=== PATIENT | female | born 1950 | race Hispanic/Latino ===

== ENCOUNTER 2019-09-03 10:04 | Observation (INO) | payer MEDICARE, OTHER ==
[2019-09-03] VITALS (10 sets, daily range): BP systolic 109–156; BP diastolic 47–69
[~2019-09-03] VITALS: Ht 160 cm; Wt 110.2 kg
[~2019-09-03 10:04] MED LIST: LISINOPRIL30 MG PO; METFORMIN HCL1000 MG PO
--- NOTE | 2019-09-03 10:32 | Emergency Department Note ---
History of Present Illnes History of Present Illness Chief Complaint: Chest Pain History of Present Illness This is a 69 year old female arrives to the ED with complaints of inter mittent chest pain today. Patient states she was seen in Dr. Hernandez's office just prior to arrival where she received a stress test. Spoke to Dr. Hernandez patient's stress test was markedly abnormal patient sent to the ER for cardiac catheterization in the setting of EKG changes and chest pain with exertion. . Chief Complaint Comment PATIENT IN FROM HOME WITH COMPLAINTS OF CHEST PAIN STARTING TODAY; PATIENT RATES PAIN 810. PATIENT WAS SEEN AT DR HERNANDEZ'S OFFICE AND HAD AN ABNORMAL STRESS TEST - SENT FOR TRANSCRIPT EVALUATOR Historian: Patient Arrival Mode: Car Business Sales Consultant Required: No Onset (how long ago): day(s) Duration (how long): hour(s) Timing of current episode: constant Progression: worsening Chronicity: new Relieving factors: none Exacerbating factors: movement Past Medical/Family History Physician Review I have reviewed the patient's past medical and family history. Any updates have been documented here. Past Medical History Recent Fever: No Clinical Suspicion of Infectio: No New/Unexplained Change in Ment: No Past Medical History: Hypertension, Diabetes Other Surgery: L knee scope 02/2015 Family History Family history of heart diseas: No Other Last Tetanus: unk Review of Systems Review of Systems Constitutional: Reports no symptoms EENTM: Reports no symptoms Cardiovascular: Reports as per HPI, Reports chest pain Respiratory: Reports no symptoms Gastrointestinal: Reports no symptoms Genitourinary: Reports no symptoms Musculoskeletal: Reports no symptoms Integumentary: Reports no symptoms Neurological: Reports no symptoms Psychological: Reports no symptoms Endocrine: Reports no symptoms Hematological/Lymphatic: Reports no symptoms Review of other systems: All other systems negative Physical Exam Related Data Allergies: Coded Allergies: No Known Allergies (Unverified , 02/21/15) Triage Vital Signs Vital Signs Date Time Temp Pulse Resp B/P (MAP) Pulse Ox O2 Delivery O2 Flow Rate FiO2 09/03/19 10:15 96.4 75 16 126/67 95 Vital signs reviewed: Yes Physical Exam CONSTITUTIONAL Constitutional: Present well-developed, Present well-nourished HENT HENT: Present normocephalic, Present atraumatic, Present oropharynx clear/moist, Present nose normal HENT L/R: Present left ext ear normal, Present right ext ear normal EYES Eyes: Reports PERRL, Reports conjunctivae normal NECK Neck: Present ROM normal PULMONARY Pulmonary: Present effort normal, Present breath sounds normal CARDIOVASCULAR Cardiovascular: Present regular rhythm, Present heart sounds normal, Present capillary refill normal, Present normal rate GASTROINTESTINAL Abdominal: Present soft, Present nontender, Present bowel sounds normal GENITOURINARY Genitourinary: Present exam deferred SKIN Skin: Present warm, Present dry MUSCULOSKELETAL Musculoskeletal: Present ROM normal NEUROLOGICAL Neurological: Present alert, Present oriented x 3, Present no gross motor or sensory deficits PSYCHOLOGICAL Psychological: Present mood/affect normal, Present judgement normal Results Laboratory Lab results reviewed: Yes Imaging Imaging results reviewed: Yes Procedures 12 Lead ECG Interpretation ECG Interpretation : ECG: ECG 1 Business Sales Consultant: Interpreted by ED physician Rhythm: sinus rhythm Rate: normal QRS axis: normal ST segments normal: Yes T waves normal: Yes Clinical Impression: normal ECG Clinical Decision Tools HEART Score HEART Score: HEART Score Response (Comments) Value History Moderately suspicious 1 EKG Normal 0 Age > or equal to 65 2 Risk factors 1 or 2 risk factors 1 Troponin 1-3x normal limit Total 4 Assessment & Plan Medical Decision Making MDM Chest pain, patient was significantly cardiac risk factors also age is over 65. Patient admitted for cardiac monitoring. Patient's EKG and cardiac enzymes reviewed, no concerns of acute NC and STEMI at time of admission Assessment & Plan Final Impression: (1) Stable angina (2) Chest pain Depart Disposition: ADMITTED Last Vital Signs Date Time Temp Pulse Resp B/P (MAP) Pulse Ox O2 Delivery O2 Flow Rate FiO2 09/03/19 10:15 96.4 75 16 126/67 95 Home Meds Active Scripts Pravastatin Sodium (PRAVACHOL) 20 Mg Tablet, 20 MG PO HS for 30 Days, TAB Prov:ALICE REED MD 09/04/19 Famotidine (FAMOTIDINE) 20 Mg Tab, 20 MG PO Q12H, #30 TAB Prov:ALICE REED MD 09/04/19 Aspirin (ASPIRIN EC) 81 Mg Tablet.dr, 81 MG PO DAILY for 30 Days Prov:ALICE REED MD 09/04/19 Reported Medications Metformin Hcl (METFORMIN HCL) 1,000 Mg Tablet, 1 EACH PO BID 02/22/15 Lisinopril (LISINOPRIL) 30 Mg Tablet, 1 EACH PO DAILY 02/22/15 ALEN CARRILLO DO Sep 03, 2019 10:15
[2019-09-03 10:52] LABS: BASOPHILS % 0.4 % (0.0-1.0); EOSINOPHILS # (AUTO) 0.1 (0.0-0.4); EOSINOPHILS % 3.2 % (0.0-6.0); HEMATOCRIT 41.6 % (34.2-44.1); LYMPHOCYTES # (AUTO) 0.6 (1.0-3.2); MEAN CORPUSCULAR HEMOGLOBIN 27.1 pg (28-32); MEAN CORPUSCULAR HGB CONC 31.3 g/dL (31-35); MEAN CORPUSCULAR VOLUME 86.8 fL (81-99); MONOCYTES # (AUTO) 0.3 (0.2-0.8); NEUTROPHILS # (AUTO) 1.8 (2.1-6.9); PLATELET COUNT 51 x10e3/uL (140-360); RED BLOOD COUNT 4.79 x10e6/uL (3.6-5.1); RED CELL DISTRIBUTION WIDTH 14.8 % (11.7-14.4)
[2019-09-03 11:05] LABS: ALANINE AMINOTRANSFERASE 27 IU/L (0-55); ALBUMIN 3.3 g/dL (3.5-5.0); ALKALINE PHOSPHATASE 149 IU/L (40-150); BLOOD UREA NITROGEN 8 mg/dL (7-26); BUN/CREATININE RATIO 12 (6-25); CALCIUM 8.8 mg/dL (8.4-10.2); CARBON DIOXIDE 27 mmol/L (22-29); CHLORIDE 106 mmol/L (98-107); CREATINE KINASE 62 IU/L (29-168); CREATININE, SERUM 0.69 mg/dL (0.57-1.11); EST GLOMERULAR FILTRATION RATE > 60 ML/MIN (60-); GLUCOSE 116 mg/dL (74-118); SODIUM 140 mmol/L (136-145)
--- NOTE | 2019-09-03 11:32 | Diagnostic Imaging Report ---
EXAMINATION: CHEST SINGLE (PORTABLE) INDICATION: Chest pain COMPARISON: None FINDINGS: LINES/TUBES:None LUNGS:The lungs are well-inflated. No focal consolidation or pulmonary edema. PLEURA:No pleural effusion or pneumothorax. MEDIASTINUM:The cardiomediastinal silhouette appears normal in size and shape. BONES/SOFT TISSUES:No acute osseous injury. ABDOMEN:No free air under the diaphragm. IMPRESSION: No focal pneumonia or pulmonary edema. Signed by: Brad Trinh MD on 09/03/2019 11:29 AM
--- NOTE | 2019-09-03 12:14 | NUR ---
Recvd patient from ER, AAOx3, c/o chest pain 06/24, not in any distress or SOB, keep monitoring
[2019-09-03] MEDS ORDERED: DOCUSATE SODIUM 100 MG CAP PO PRN (13:15)
[2019-09-03] MEDS ORDERED: ONDANSETRON HCL INJ 2MG/ML 2ML 2 MG/ML VIAL IV PRN (13:15)
--- NOTE | 2019-09-03 13:16 | NUR ---
H&P cc: chest pain HPI: 69yoF, developed cp. Minimal SOB. no dizziness. PMH: HTN, DM2 PShx: unknown Allergies; see emr Fh/SH; no illicits meds; see MAR ROS; no f/c/s/N/V/D/skin rash/confusion/focal limb weakness v/s; revd PE tired appearing anicteric ns1s2 mod bs soft nt nd no e/t skin dry n. affect labs/meds revd A/P: 69yoF Atypical CP- cardio w-up Severe obesity- hab1c/lipids; caloric restriction needed BMI 43- as above DM2- hab1c/lipids Thrombocytopenia- avoid heparin Prop: scd; pepcid dispo; f/u labs; Amanda Woo MD, PhD.
[2019-09-03] MEDS ORDERED: HEPARIN SOD (PORCINE) 1000 UNIT/ML 30ML ONE (13:29)
[2019-09-03] MEDS ORDERED: MIDAZOLAM HCL 2 MG/2 ML VIAL ONE ×2 (13:30→14:19)
[2019-09-03] MEDS ORDERED: FENTANYL CITRATE/PF 100MCG/2 ML INJ ONE (13:30)
[2019-09-03] MEDS ORDERED: VERAPAMIL HCL 2.5 MG/ML 2 ML VIAL ONE (13:30)
[2019-09-03] MEDS ORDERED: IOPAMIDOL 370 MG/ML 200 ML INFUS..BTL INJ ONE (13:30)
[2019-09-03] MEDS ORDERED: SODIUM CHLORIDE 0.9% 1000ML 1,000 ML ONE (13:30)
[2019-09-03] MEDS ORDERED: HEPARIN SOD/SOD CHLORIDE 2,000 ML ONE (13:30)
[2019-09-03] MEDS ORDERED: NITROGLYCERIN/D5W 200 MCG/ML 250 ML ONE (13:31)
[2019-09-03] MEDS ORDERED: LIDOCAINE HCL 2% LOCAL 20 ML VIAL ONE (13:33)
--- NOTE | 2019-09-03 14:01 | NUR ---
patient off the unit to Electric Motor Tester Assembler, stable
--- NOTE | 2019-09-03 14:30 | NUR ---
1430pm RECEIVING NOTE [employer]............................................................... Bedside report received from COLTON Pena. Identifierx2. Alert oriented and appropriate, PERRLA, respirations even and unlabored to room air. Pulses x4 extremities equal and strong. Pedal pulses PT/DP X4 and marked. Cap fill brisk < 3 sec. LHC no fix No significant findings. Rt radial approach. No gross issues pain pallor,pressure or dysrhythmia. Skin warm and dry integrity appears D/I. IV 20g to left ac presents healthy w/o s/s of infiltration or complaint. Abdomen soft and supple. pt offered toileting, denies need to urinate or defecate. No personal affects with patient. No Family at bedside. Pt verbalizes understanding of POC. Tolerating apple juice back to baseline orientation. Currently w/o complaint of pain or need. ds/rn
--- NOTE | 2019-09-03 15:30 | NUR ---
1530pm RADIAL COMPRESSION REMOVAL NOTE: Initial Cuff volume 12 cc 1530pm -2cc Removed No hematoma/bleeding noted with normal neurovascular function. 1545pm -5cc Removed No hematoma/ bleeding noted with normal neurovascular function. 1600pm -5cc Removed No hematoma/bleeding noted with normal neurovascular function. Air removal completed. Stasis achieved sterile 2x2,Tegaderm, Coban dressing No hematoma, bleeding noted with normal neurovascular function. Wrist splint in place. Pt instructed on POC. Ds/RN
--- NOTE | 2019-09-03 16:00 | NUR ---
1600p Handoff completed with fce to face report to Lazara Enriquez at bedside No gross issues NSR cp intermittent 06/24 reported to staff. No fix LHC per David Parikh dc from cardiology. Needs to remove arm reminder with am shower.Transported to floor care per bed and tele. Report to tele staff. jackie/lazara
[2019-09-03] MEDS: FAMOTIDINE 20 MG/2 ML VIAL IV SCH (17:54)
--- NOTE | 2019-09-03 18:35 | Consultation ---
DATE OF CONSULTATION: 09/03/2019 Cardiology Consultation REASON FOR CONSULTATION: Chest pain. HISTORY OF PRESENT ILLNESS: This is a 69-year-old woman with a history of hypertension and diabetes mellitus, who presented from our Cardiology clinic with abnormal treadmill stress test. She underwent cardiac catheterization, which revealed no significant coronary artery disease. She is feeling well. Denies any typical angina, shortness of breath, or palpitations. PAST MEDICAL HISTORY: As stated above. PAST SURGICAL HISTORY: Cardiac catheterization. PAST FAMILY HISTORY: Noncontributory to current illness. SOCIAL HISTORY: No illicit drug, alcohol, or tobacco use. ALLERGIES: NO KNOWN DRUG ALLERGIES. MEDICATIONS: See medication reconciliation form. PHYSICAL EXAMINATION: VITAL SIGNS: Temperature 97.8, heart rate is 66, respirations are 18, blood pressure is 109/47, oxygen saturation 99% on room air. GENERAL: A well appearing, well built, in no apparent distress. Alert and oriented x3. HEAD: Normocephalic and atraumatic. Eyes, the extraocular muscles are intact. Conjunctivae are clear. NECK: No JVD. No bruits. CARDIOVASCULAR: Regular rate and rhythm. LUNGS: Clear to auscultation. ABDOMEN: Soft, nontender, nondistended. EXTREMITIES: No clubbing, cyanosis, or edema. VASCULAR: 2+ pulses. SKIN: Warm, dry, intact. NEUROLOGIC: No focal deficits noted. Cranial nerves grossly intact. PSYCHIATRIC: Normal mood and affect. LABORATORY DATA: Reviewed, which showed normal troponins. A 12-lead electrocardiogram showed normal sinus rhythm. IMPRESSION: 1. Precordial pain. 2. Abnormal stress test. 3. Hypertension. 4. Hyperlipidemia. 5. Diabetes mellitus. RECOMMENDATIONS: Cardiac catheterization revealed no significant coronary artery disease. We will check a 2D echocardiogram. Resume cardiovascular medications. Monitor on telemetry overnight. DO ISELA Oden/VIJAYL /[id number]
--- NOTE | 2019-09-03 19:00 | NUR ---
Visited pt during nursing rounds. Patient alert and oriented x3. Ambulatory in room prn. S/P heart catheterization today (09/03/19) with right wrist access. TR band present on right wrist and per report will be removed tomorrow by Real Estate Closer. No c/o pain at this time. Call carrillo within reach.
[2019-09-03 19:12] LABS: CREATINE KINASE MB 0.9 ng/mL (0-5.0)
[2019-09-03] MEDS ORDERED: ZOLPIDEM TARTRATE 5 MG TAB PO PRN (21:00)
[2019-09-03] MEDS ORDERED: DEXTROSE 50% SYRINGE 50 ML IV PRN (21:45)
[2019-09-03] MEDS: INSULIN REGULAR, HUMAN 100 UNIT/1 ML 3ML VIAL SQ SCH (21:49)
[2019-09-03 21:56] LABS: CHOL/HDL RATIO 2.9 (3.0-3.6)
[2019-09-04] VITALS (8 sets, daily range): BP systolic 111–121; BP diastolic 49–68
[2019-09-04] MEDS: MORPHINE SULFATE INJ 4 MG/ML INJ 1ML IV PRN ×2 (00:35→11:02)
[2019-09-04 06:45] LABS: CREATINE KINASE MB 0.4 ng/mL (0-5.0)
--- NOTE | 2019-09-04 07:00 | NUR ---
received bedside report. pt is alert resting in bed, no s/s of distress. call light within reach and instructed pt to call RN for help
[2019-09-04] MEDS: INSULIN REGULAR, HUMAN 100 UNIT/1 ML 3ML VIAL SQ SCH ×4 (07:30→15:55)
[2019-09-04] MEDS ORDERED: INSULIN REGULAR, HUMAN 100 UNIT/1 ML 3ML VIAL SQ SCH (07:30)
[2019-09-04] MEDS: FAMOTIDINE 20 MG/2 ML VIAL IV SCH ×2 (08:56→17:47)
[2019-09-04] MEDS: ASPIRIN 81 MG ENTERIC COATED PO SCH (08:57)
[2019-09-04] MEDS: LISINOPRIL 20 MG TAB PO SCH (08:57)
[2019-09-04] MEDS ORDERED: LISINOPRIL PO SCH (09:00)
[2019-09-04] MEDS ORDERED: PRAVACHOL20 MG PO (12:15)
[2019-09-04] MEDS ORDERED: ASPIRIN EC81 MG PO (12:15)
[2019-09-04] MEDS ORDERED: FAMOTIDINE20 MG PO (12:15)
[2019-09-04 15:00] LABS: CHOL/HDL RATIO 3.3 (3.0-3.6)
--- NOTE | 2019-09-04 20:10 | NUR ---
Patient c/o right abd.pain.notified to .ordered for KUB.
--- NOTE | 2019-09-04 20:55 | NUR ---
PT IS OFF THE UNIT FOR KUB VIA WHEEL CHAIR.
--- NOTE | 2019-09-04 21:07 | NUR ---
PT IS BACK TO UNIT SAFELY.
--- NOTE | 2019-09-04 22:11 | Diagnostic Imaging Report ---
EXAM: Abdomen Radiograph 1 View INDICATION: Right abdominal pain COMPARISON: None FINDINGS: No abnormalities in the lower chest. No lines or tubes. Normal volume of stool in the colon. No dilated loops of small bowel. No abnormal abdominal calcifications.. No abnormal soft tissue masses. No pneumoperitoneum. No acute osseous abnormality. Degenerative changes in in the lumbar spine and pelvis. Post surgical changes in the lower central pelvis. Cholecystectomy clips. IMPRESSION: No acute abdominal radiographic abnormality. Signed by: Thompson Flynn DO on 09/04/2019 10:07 PM
[2019-09-04] MEDS: ACETAMINOPHEN 325 MG TAB PO PRN (22:30)
[2019-09-05] VITALS: BP 123/54
--- NOTE | 2019-09-05 00:26 | NUR ---
RESTING IN THE BED.NO PAIN VOICED.
[2019-09-05 04:00] VITALS: BP 130/60
--- NOTE | 2019-09-05 07:00 | NUR ---
Bed side shift report given to oncoming Rn.stable condition.
[2019-09-05 07:19] VITALS: BP 110/47
[2019-09-05] MEDS: INSULIN REGULAR, HUMAN 100 UNIT/1 ML 3ML VIAL SQ SCH ×2 (07:30→11:50)
[2019-09-05 07:37] VITALS: BP 110/47
[2019-09-05] MEDS: ASPIRIN 81 MG ENTERIC COATED PO SCH (08:24)
[2019-09-05] MEDS: FAMOTIDINE 20 MG/2 ML VIAL IV SCH (08:24)
[2019-09-05] MEDS: LISINOPRIL 20 MG TAB PO SCH (08:24)
[2019-09-05] MEDS: ACETAMINOPHEN 325 MG TAB PO PRN (08:31)
[2019-09-05 11:13] VITALS: BP 109/49
--- NOTE | 2019-09-05 11:58 | Diagnostic Imaging Report ---
HISTORY: ^abdominal pain ^[id number] ^[id number] TECHNIQUE: Selected static images from complete abdominal ultrasound provided for INTERPRETATION: COMPARISON: None. FINDINGS: Pancreas: Visualized portions are increased in echotexture suggestive of lipomatosis without mass or ductal dilatation. Liver: Measures 13.4 cm in sagittal plane. The echotexture is heterogeneous with lobulated contours. No mass in the visualized portions. Portal Vein: Measures 1.1 cm. Hepatopetal flow on spectral Doppler interrogation. Biliary Tree: Normal Gallbladder: Present and contracted. Gallbladder valencia measure up to 5 mm. No evidence of gallstone or sludge. No pericholecystic fluid. Sonographic Lord sign is negative. CBD: 0.4 cm. Right Kidney: Length is 8.1 cm. Echotexture is normal. No mass or hydronephrosis. Left Kidney: Length is 9.0 cm. Echotexture is normal. No mass or hydronephrosis. Spleen: 13.8 cm in length. No evidence for mass. Proximal Aorta: 1.7 cm. Mid Aorta: 1.8 cm. Distal Aorta: Poorly visualized due to bowel gas IVC: Patent No free fluid IMPRESSION: 1. Cirrhosis and mild splenomegaly. No hepatic mass. Normal portal vein diameter. No ascites. 2. Mildly contracted gallbladder. No evidence of gallstones. No bile duct dilatation. Signed by: Dr. Natalie Cardona MD on 09/05/2019 11:55 AM
--- NOTE | 2019-09-05 12:06 | NUR ---
Notified of ultrasound
--- NOTE | 2019-09-05 13:00 | NUR ---
Per , "patient cleared to discharge and to follow up with Dr.Ali Wilfrid ENG in 3 days. RX will be faxed to [facility] on [address]." Patient aware of doctor's message.
--- NOTE | 2019-09-05 14:27 | NUR ---
Left FA IV discontinued. No signs of infiltration noted. 2x2 gauze and coban placed. Taken via wheelchair to personal car by PCT. AAOX4 to time,person, place, situation. Respirations even and unlabored. Dressing to right wrist with coban clean, dry, and intact. Discharge instructions and all personal belongings taken with patient.
--- NOTE | 2019-10-03 06:42 | NUR ---
D/C summary Principal dx: Atypical CP- cardio w-up= Negative; Severe obesity- hab1c/lipids; caloric restriction needed BMI 43- as above Secondary Dx: DM2- hab1c/LDL . Thrombocytopenia- avoid heparin Prop: scd; pepcid dispo; f/u labs; d/c home f/u pcp 2 days stable d/c>35mins Amanda Woo MD, PhD.
--- NOTE | 2019-10-13 22:05 | Operative Report ---
DATE OF PROCEDURE: 09/03/2019 SURGEON: Hector Tse MD CARDIAC CATHETERIZATION REPORT PROCEDURES PERFORMED: 1. Coronary angiography, right radial approach. 2. Moderate sedation, 30 minutes. PROCEDURE DETAILS: The patient was brought to the cardiac catheterization laboratory in a fasting state. Right wrist was prepped and draped in a sterile fashion. A 6-Spanish Slender sheath was inserted in the right radial artery using modified Seldinger technique. Coronary angiography was performed using a 5-Spanish Cristy radial catheter. All catheters were removed over wire. There were no immediate complications. SIGNIFICANT FINDINGS: Left main; large caliber and no significant CAD. LAD; large vessel goes to the apex, one significant diagonal branch. Mild plaquing in the proximal LAD and ostial diagonal 1 about 10% to 20%. Left circumflex, nondominant vessel. One significant OM branch. No significant CAD. RCA; large dominant vessel, luminal irregularities only. GRAFTS AND IMPLANTS: None. SPECIMEN REMOVED: None. ESTIMATED BLOOD LOSS: 5 mL. FINAL RECOMMENDATIONS: 1. Continue optimal medical therapy and risk factor control. 2. Follow up in the office as needed. Hector Tse MD KVP/MODL /[id number]
--- OUTSIDE RECORDS SUMMARY | 2019-10-14 21:22 | XMS REPORT | Continuity of Care Document ---
Author Author [facility] t Organization [facility] Address [address] [place] [address] Phone Unavailable Care Team Providers Care Emergency Room Nurse Name Role Phone BIN STOVALL PCP ALICE REED Attphys Unavailable ALICE REED Admphys Unavailable Payers Payer Name Policy Type Policy Number Effective Date Expiration Date S ource Problems Condition Name Condition Details Condition Category Status Onset Date Resolution Date Last Treatment Date Treating Clinician Comments Source Chest pain Problem Active [facility] Allergies, Adverse Reactions, Alerts Allergy Name Allergy Type Status Severity Reaction(s) Onset Date Inacti ve Date Treating Clinician Comments Source No Known Allergies DA Active U 2018-10-13 00:00:00 [facility] No Known Allergies DA Active U 2017-03-20 00:00:00 [facility] Social History Social Habit Start Date Stop Date Quantity Comments Source Sex Assigned At 1950 00:00:00 1950 00:00:00 Female [facility] Medications Ordered Medication Name Filled Medication Name Start Date Stop Da te Current Medication? Ordering Clinician Indication Dosage Frequency Signature (SIG) Comments Components Source Aspirin (Aspirin Ec) 81 Mg TABLET. Aspirin (Aspirin Ec) 81 Mg TABLET. 2019-09-04 12:15:00 Yes 81 Daily [facility] Famotidine Famotidine 2019-09-04 12:15:00 Yes 20 Enedina ry 12 Hours [facility] Pravastatin Sodium (Pravachol) 20 Mg TABLET Pravastati n Sodium (Pravachol) 20 Mg TABLET 2019-09-04 12:15:00 Yes 20 Bedtime [facility] Lisinopril Lisinopril Yes 1 Daily [facility] Metformin Hcl Metformin Hcl Yes 1 Twice A Day [facility] Vital Signs Vital Name Observation Time Observation Value Comments Source Body Temperature 2019-09-05 11:13:00 98.8 [degF] [facility] BMI (Body Mass Index) 2019-09-04 00:41:00 43.0 kg/m2 [facility] Weight 2019-09-03 10:15:00 243 [lb_av] [facility] Procedures Procedure Date / Time Performed Performing Clinician Sourc e US abdomen complete 2019-09-05 00:00:00 [facility] Plan of Care Planned Activity Planned Date Details Comments Source Instructions Chest Pain - Chest Wall [facility] Instructions Heart Healthy Diet [facility] Instructions Infection Control [facility] Results Test Description Test Time Test Comments Results Result Comments Source US ABDOMEN COMPLETE 2019-09-05 11:51:00 [facility] [address] [address] Patient Name: WANDA VILLASENOR MR #: [id number] : 1950 Age/Sex: 69/F Req #: [id number] Adm Physician: ALICE REED MD Ordered by: ALICE REED MD Report #: [id number] Location: MED/SURG3 Room/Bed: [facility] Procedure: [id number] US/US ABDOMEN COMPLETE Exam Date: 09/05/19 Exam Time: 1107 REPORT STATUS: Signed HISTORY: abdominal pain [id number] TECHNIQUE: Selected static images from complete abdominal ultrasound provided for INTERPRETATION: COMPARISON: None. FINDINGS: Pancreas: Visualized portions are increased in echotexture suggestive of lipomatosis without mass or ductal dilatation. Liver: Measures 13.4 cm in sagittal plane. The echotexture is heterogeneous with lobulated contours. No mass in the visualized portions. Portal Vein: Measures 1.1 cm. Hepatopetal flow on spectral Doppler interrogation. Biliary Tree: Normal Gallbladder: Present and contracted. Gallbladder valencia measure up to 5 mm. No evidence of gallstone or sludge. No pericholecystic fluid. Sonographic Lord sign is negative. CBD: 0.4 cm. Right Kidney: Length is 8.1 cm. Echotexture is normal. No mass or hydronephrosis. Left Kidney: Length is 9.0 cm. Echotexture is normal. No mass or hydronephrosis. Spleen: 13.8 cm in length. No evidence for mass. Proximal Aorta: 1.7 cm. Mid Aorta: 1.8 cm. Distal Aorta: Poorly visualized due to bowel gas IVC: Patent No free fluid IMPRESSION: 1. Cirrhosis and mild splenomegaly. No hepatic mass. Normal portal vein diameter. No ascites. 2. Mildly contracted gallbladder. No evidence of gallstones. No bile duct dilatation. Signed by: Dr. Natalie Johnston MD on 09/05/2019 11:55 AM Dictated By: NATALIE JOHNSTON MD 1155 Transcribed By: NATHAN on 09/05/19 1155 COPY TO: ALICE REED MD Capillary blood glucose measurement by glucometer (mas s/volume) 2019-09-05 06:53:00 Test Item Bedside Glucose (test code = 23862-1) 126 70-120 Meter ID: [id number] [facility] 2019-09-04 22:05:[address] [address] Patient Name: WANDA VILLASENOR MR #: [id number] : 1950 Age/Sex: 69/F Req #: [id number] Adm Physician: ALICE REED MD Ordered by: ALICE REED MD Report #: [id number] Location: MED/SURG3 Room/Bed: [facility] Procedure: [id number] DX/ABDOMEN-1V IEW (KUB) Exam Date: 09/04/19 Exam Time: 2100 REPORT STATUS: Signed EXAM: Abdomen Ra diograph 1 View INDICATION: Right abdominal pain COMPARISON: None FINDINGS: No abnormalities in the lower chest. No lines or tubes. Normal volume of stool in the colon. No dilated loops of small bowel. No abnormal abdominal calcifications.. No abnormal soft tissue masses. No pneumoperitoneum. No acute osseous abnormality. Degenerative marcio nges in in the lumbar spine and pelvis. Post surgical changes in the lower central pelvis. Cholecystectomy clips. IMPRESSION: No acute abdom inal radiographic abnormality. Signed by: Thompson Gibbs DO on 09/04/2019 1 0:07 PM Dictated By: THOMPSON GIBBS DO 06 Transcribed By: NATHAN on 09/04/192206 COPY TO: ALICE REED MD Serum or plasma triglyceride measurement (mass/volume)2019-09-04 05:40:00* Test Item Value Reference Range Interpretation Comments Triglycerides Level (test code = 2571-8) 81 0-149 [facility] cholesterol measurement (mass/volume)2019-09-04 05:40:00* Test Item Value Reference Range Interpretation Comments Cholesterol Level (test code = 2093-3) 140 0-199 Less than 200 mg/dL Low Ahot210 - 239 mg/dL Borderline Atbi024 m g/dl and greater High Risk [facility] cholesterol in LDL measurement (mass/volume) 2019-09-04 05:40:00* Test Item Value Reference Range Interpretation Comments LDL Cholesterol (test code = 2089-1) 81 60-130 [facility] cholesterol in HDL measurement (mass/volume)2019-09-04 05:40:00* Test Item Value Reference Range Interpretation Comments HDL Cholesterol (test code = 2085-9) 43 40-60 [facility] total cholesterol/cholesterol in HDL mass einmj8318-99-06 05:40:00* Test Item Value Reference Range Interpretation Comments Cholesterol/HDL Ratio (test code = 9830-1) 3.3 3.0-3.6 [facility] plasma creatine kinase measurement (enzymatic activity/volume)2019-09-04 05:40:00* Test Item Value Reference Range Interpretation Comments Creatine Kinase (test code = 2157-6) 45 29-168 [facility] creatine kinase MB measurement (mass/volume)2019-09-04 05:40:00* Test Item Value Reference Range Interpretation Comments Creatine Kinase MB (test code = 95318-3) 0.40 0-5.0 [facility] measurement by highly sensitive enzyme bejnabftfmq2877-14-47 05:40:00* Test Item Value Reference Range Interpretation Comments Troponin I (test code = 85037-0) 0.066 0-0.300 [facility] ([facility])2019-09-03 11:28:00 [facility] [address] [place] [address] Patient Name: WANDA VILLASENOR MR #: [id number] : 1950 Age/Sex: 69/F Req #: [id number] Adm Physician: ALICE REED MD Ordered by: ALEN CARRILLO DO Report #: [id number] Location: MED/SURG3 Room/Bed: [facility] Procedure: [id number] DX/CHEST SINGLE (PORTABLE) Exam Date: 09/03/19 Exam Time: 11 13 REPORT STATUS: Signed EXAMINA TION: CHEST SINGLE (PORTABLE) INDICATION: Chest pain COMPARISON: None FINDINGS: LINES/TUBES:None LUNGS:The lungs are well-inf lated. No focal consolidation or pulmonary edema. PLEURA:No pleural effusio n or pneumothorax. MEDIASTINUM:The cardiomediastinal silhouette appears nor mal in size and shape. BONES/SOFT TISSUES:No acute osseous injury. ABD OMEN:No free air under the diaphragm. IMPRESSION: No focal pneumonia or pulmonary edema. Signed by: Luis Daniel Cordoba MD on 09/03/2019 11:29 AM Dic tated By: LUSI DANIEL CORDOBA MD 112 9 Transcribed By: NATHAN on 09/03/19 1129 COPY TO: ALEN CARRILLO, Blood leukocytes automated count (number/volume)2019-09-03 10:22:00* Test Item Value Reference Range Interpretation Comments White Blood Count (test code = 6690-2) 2.78 4.8-10.8 [facility] erythrocytes automated count (number/volume)2019-09-03 10:22:00* Test Item Value Reference Range Interpretation Comments Red Blood Count (test code = 789-8) 4.79 3.6-5.1 [facility]Blood hemoglobin measurement (moles/volume)2019-09-03 10:22:00* Test Item Value Reference Range Interpretation Comments Hemoglobin (test code = 05614-6) 13.0 12.0-16.0 [facility] HospitalAutomated blood hematocrit (volume fraction)2019-09-03 10:22:00* Test Item Value Reference Range Interpretation Comments Hematocrit (test code = 4544-3) 41.6 34.2-44.1 [facility] HospitalAutomated erythrocyte mean corpuscular lkbets1542-98-50 10:22:00* Test Item Value Reference Range Interpretation Comments Mean Corpuscular Volume (test code = 787-2) 86.8 81-99 [facility] HospitalAutomated erythrocyte mean corpuscular hemoglobin (mass per erythrocyte)2019-09-03 10:22:00* Test Item Value Reference Range Interpretation Comments Mean Corpuscular Hemoglobin (test code = 785-6) 27.1 28-32 [facility] HospitalAutomated erythrocyte mean corpuscular hemoglobin concentration measurement (mass/volume)2019-09-03 10:22:00* Test Item Value Reference Range Interpretation Comments Mean Corpuscular Hemoglobin Concent (test code = 786-4) 31.3 31-35 [facility] HospitalRDW ZgnTn-Tsr4622-19-19 10:22:00* Test Item Value Reference Range Interpretation Comments Red Cell Distribution Width (test code = 88764-0) 14.8 11.7 -14.4 [facility] HospitalAutomated blood platelet count (count/volume)2019-09-03 10:22:00* Test Item Value Reference Range Interpretation Comments Platelet Count (test code = 777-3) 51 140-360 [facility] HospitalAutecu health beau[facility] hospitaled blood segmented neutrophil count as percentage of total ecetiatcxl6186-81-86 10:22:00* Test Item Value Reference Range Interpretation Comments Neutrophils (%) (Auto) (test code = 45044-0) 64.0 38.7-80.0 [facility] HospitalAutomated blood lymphocyte count as percentage ot total gmuztesshm3523-32-31 10:22:00* Test Item Value Reference Range Interpretation Comments Lymphocytes (%) (Auto) (test code = 736-9) 23.0 18.0-39.1 [facility] HospitalAutomated blood monocyte count as percentage of total umpkwdnocu3476-19-45 10:22:00* Test Item Value Reference Range Interpretation Comments Monocytes (%) (Auto) (test code = 5905-5) 9.0 4.4-11.3 [facility] HospitalAutomated blood eosinophil count as percentage of total lxfqxfidma0041-31-04 10:22:00* Test Item Value Reference Range Interpretation Comments Eosinophils (%) (Auto) (test code = 713-8) 3.2 0.0-6.0 [facility] HospitalAutomated blood basophil count as percentage of total yacltxywrx4813-08-01 10:22:00* Test Item Value Reference Range Interpretation Comments Basophils (%) (Auto) (test code = 706-2) 0.4 0.0-1.0 [facility] HospitalFluoroscopic procedure less than one hour dtxftsds5989-77-20 10:22:00* Test Item Value Reference Range Interpretation Comments IM GRANULOCYTES % (test code = IM GRANULOCYTES %) 0.4 0.0- 1.0 [facility] HospitalAutomated blood neutrophil count 2019-09-03 10:22:00* Test Item Value Reference Range Interpretation Comments Neutrophils # (Auto) (test code = 751-8) 1.8 2.1-6.9 [facility] HospitalBlood lymphocytes count (number/volume) 2019-09-03 10:22:00* Test Item Value Reference Range Interpretation Comments Lymphocytes # (Auto) (test code = 50252-3) 0.6 1.0-3.2 [facility] HospitalBlood monocytes automated count (number/volume)2019-09-03 10:22:00* Test Item Value Reference Range Interpretation Comments Monocytes # (Auto) (test code = 742-7) 0.3 0.2-0.8 [facility] HospitalAutomated blood eosinophil count 2019-09-03 10:22:00* Test Item Value Reference Range Interpretation Comments Eosinophils # (Auto) (test code = 711-2) 0.1 0.0-0.4 [facility] HospitalAutomated blood basophil count (count/volume)2019-09-03 10:22:00* Test Item Value Reference Range Interpretation Comments Basophils # (Auto) (test code = 704-7) 0.0 0.0-0.1 [facility] HospitalFluoroscopic procedure less than one hour cylfknds3188-71-38 10:22:00* Test Item Value Reference Range Interpretation Comments Absolute Immature Granulocyte (auto (tian t code = Absolute Immature Granulocyte (auto) 0.01 0-0.1 [facility] sodium measurement (moles/volume)2019-09-03 10:22:00* Test Item Value Reference Range Interpretation Comments Sodium Level (test code = 2951-2) 140 136-145 [facility] plasma potassium measurement (moles/volume)2019-09-03 10:22:00* Test Item Value Reference Range Interpretation Comments Potassium Level (test code = 2823-3) 4.0 3.5-5.1 [facility] or plasma chloride measurement (moles/volume)2019-09-03 10:22:00* Test Item Value Reference Range Interpretation Comments Chloride Level (test code = 2075-0) 106 98-107 [facility] or plasma carbon dioxide, total measurement (moles/volume)2019-09-03 10:22:00* Test Item Value Reference Range Interpretation Comments Carbon Dioxide Level (test code = 2028-9) 27 22-29 [facility] or plasma anion jax9788-74-58 10:22:00* Test Item Value Reference Range Interpretation Comments Anion Gap (test code = 57781-7) 11.0 8-16 [facility] or plasma urea nitrogen measurement (mass/volume)2019-09-03 10:22:00* Test Item Value Reference Range Interpretation Comments Blood Urea Nitrogen (test code = 3094-0) 8 7-26 [facility] or plasma creatinine measurement (mass/volume)2019-09-03 10:22:00* Test Item Value Reference Range Interpretation Comments Creatinine (test code = 2160-0) 0.69 0.57-1.11 [facility] or plasma urea nitrogen/creatinine mass ouvvr2973-78-81 10:22:00* Test Item Value Reference Range Interpretation Comments BUN/Creatinine Ratio (test code = 3097-3) 12 6-25 [facility] HospitalEstimated glomerular filtration rate (GFR) tnimxtakwndgf3832-34-08 10:22:00* Test Item Value Reference Range Interpretation Comments Estimat Glomerular Filtration Rate (test code = 266206179) > 60 >60 Ranges were taken from the National Kidney Disease Education Program and the [facility] [employer] literature.Reference ranges:60 or greater: Eyoxel59-33 ( for 3 consecutive months): Chronic kidney disease 15 or less: Kidney failureMedical Arts HospitalGlucose nrztyneoznq3392-39-94 10:22:00* Test Item Value Reference Range Interpretation Comments Glucose Level (test code = YMK1332) 116 74-118 [facility] or plasma calcium measurement (mass/volume)2019-09-03 10:22:00* Test Item Value Reference Range Interpretation Comments Calcium Level (test code = 49944-1) 8.8 8.4-10.2 [facility] HospitalFluoroscopic procedure less than one hour otvsuypc7052-14-78 10:22:00* Test Item Value Reference Range Interpretation Comments Hemoglobin A1c Percent (test code = Hemoglobin A1c Percent) 5.6 4.0-7.0 [facility] plasma total bilirubin measurement (mass/volume)2019-09-03 10:22:00* Test Item Value Reference Range Interpretation Comments Total Bilirubin (test code = 1975-2) 1.1 0.2-1.2 [facility] HospitalFluoroscopic procedure less than one hour qiywtpto9185-62-08 10:22:00* Test Item Value Reference Range Interpretation Comments Aspartate Amino Transf (AST/SGOT) (test code = Aspartate Amino Transf (AST/SGOT)) 50 5-34 [facility] or plasma alanine aminotransferase measurement (enzymatic activity/volume)2019-09-03 10:22:00* Test Item Value Reference Range Interpretation Comments Alanine Aminotransferase (ALT/SGPT) (test code = 1742-6) 27 0-55 [facility] or plasma protein measurement (mass/volume)2019-09-03 10:22:00* Test Item Value Reference Range Interpretation Comments Total Protein (test code = 2885-2) 6.7 6.5-8.1 [facility] plasma albumin measurement (mass/volume)2019-09-03 10:22:00* Test Item Value Reference Range Interpretation Comments Albumin (test code = 1751-7) 3.3 3.5-5.0 [facility] HospitalPlasma globulin measurement (mass/volume) 2019-09-03 10:22:00* Test Item Value Reference Range Interpretation Comments Globulin (test code = 22667-0) 3.4 2.3-3.5 [facility] or plasma albumin/globulin mass ycmlz7140-46-41 10:22:00* Test Item Value Reference Range Interpretation Comments Albumin/Globulin Ratio (test code = 1759-0) 1.0 0.8-2.0 [facility] plasma alkaline phosphatase measurement (enzymatic activity/volume)2019-09-03 10:22:00* Test Item Value Reference Range Interpretation Comments Alkaline Phosphatase (test code = 6768-6) 149 40-150 [facility] HospitalBNP Ydc-mEyi8022-82-19 10:22:00* Test Item Value Reference Range Interpretation Comments B-Type Natriuretic Peptide (test code = 08486-5) 53.5 0-100 [facility] HospitalGLUBED2020-02-21 08:11:00* Test Item Value Reference Range Interpretation Comments GLUBED (test code = GLUBED) 101 mg/dL 74-106 N Performed by certified shovel log loader operator at [facility] LVVGTG1619-96-69 20:32:00* Test Item Value Reference Range Interpretation Comments GLUBED (test code = GLUBED) 136 mg/dL 74-106 H Performed by certified shovel log loader operator at [facility] TZNTYW9575-95-88 16:13:00* Test Item Value Reference Range Interpretation Comments GLUBED (test code = GLUBED) 128 mg/dL 74-106 H Performed by certified shovel log loader operator at [facility] JNIIIA8219-54-90 11:39:00* Test Item Value Reference Range Interpretation Comments GLUBED (test code = GLUBED) 160 mg/dL 74-106 H Performed by certified shovel log loader operator at [facility] BNJYKK3116-55-43 08:55:00* Test Item Value Reference Range Interpretation Comments GLUBED (test code = GLUBED) 121 mg/dL 74-106 H Performed by certified shovel log loader operator at [facility] ENZBWV3116-58-65 20:45:00* Test Item Value Reference Range Interpretation Comments GLUBED (test code = GLUBED) 180 mg/dL 74-106 H Performed by certified shovel log loader operator at [facility] MEPUSD7056-82-54 16:32:00* Test Item Value Reference Range Interpretation Comments GLUBED (test code = GLUBED) 116 mg/dL 74-106 H Performed by certified shovel log loader operator at [facility] BPPCEV3918-19-18 11:46:00* Test Item Value Reference Range Interpretation Comments GLUBED (test code = GLUBED) 107 mg/dL 74-106 H Performed by certified shovel log loader operator at [facility] CBC W/AUTO [id number] 11:26:00* Test Item Value Reference Range Interpretation Comments WHITE BLOOD CELL (test code = WBC) 2.6 K/mm3 4.5-12.5 L RED BLOOD CELL (test code = RBC) 3.81 mill/mm3 3.7-5.2 N HEMOGLOBIN (test code = HGB) 11.2 gram/dL 11.5-15.5 L HEMATOCRIT (test code = HCT) 34.0 % 36.0-46.0 L MEAN CELL VOLUME (test code = MCV) 89.2 fL 80-98 N MEAN CELL HGB (test code = MCH) 29.4 picogram 27.0-33.0 N MEAN CELL HGB CONCETRATION (test code = MCHC) 32.9 gram/dL 33.0-36. 0 L RED CELL DISTRIBUTION WIDTH (test code = RDW) 15.4 % 11.6-16. 2 N RED CELL DISTRIBUTION WIDTH SD (test code = RDW-SD) 48.9 fL 37 .0-51.0 N PLATELET COUNT (test code = PLT) 65 K/mm3 150-450 L MEAN PLATELET VOLUME (test code = MPV) 12.6 fL 6.7-11.0 H NEUTROPHIL % (test code = NT%) 63.4 % 39.0-69.0 N IMMATURE GRANULOCYTE % (test code = IG%) 0.4 % 0.0-5.0 N LYMPHOCYTE % (test code = LY%) 24.0 % 25.0-55.0 L MONOCYTE % (test code = MO%) 11.1 % 0.0-10.0 H EOSINOPHIL % (test code = EO%) 1.1 % 0.0-5.0 N BASOPHIL % (test code = BA%) 0.0 % 0.0-1.0 N NUCLEATED RBC % (test code = NRBC%) 0.0 % 0-0 N NEUTROPHIL # (test code = NT#) 1.66 K/mm3 1.8-7.7 L IMMATURE GRANULOCYTE # (test code = IG#) 0.01 x10 3/uL 0-0.03 N LYMPHOCYTE # (test code = LY#) 0.63 K/mm3 1.0-5.0 L MONOCYTE # (test code = MO#) 0.29 K/mm3 0-0.8 N EOSINOPHIL # (test code = EO#) 0.03 K/mm3 0.0-0.5 N BASOPHIL # (test code = BA#) 0.00 K/mm3 0.0-0.2 N NUCLEATED RBC # (test code = NRBC#) 0.00 K/mm3 0.0-0.1 N [id number] 08:01:00* Test Item Value Reference Range Interpretation Comments GLUBED (test code = GLUBED) 133 mg/dL 74-106 H Performed by certified shovel log loader operator at [facility] [id number] 19:47:00* Test Item Value Reference Range Interpretation Comments GLUBED (test code = GLUBED) 199 mg/dL 74-106 H Performed by certified shovel log loader operator at [facility] LIPID PROFILE (CORONARY RISK)2019-05-04 17:40:00* Test Item Value Reference Range Interpretation Comments TRIGLYCERIDES (test code = TRIG) 118 mg/dL 20-150 N CHOLESTEROL (test code = CHOL) 139 mg/dL 0-200 N CHOLESTEROL/HDL RATIO (test code = CHOLHDL) 3.0 RATIO 0-4.9 N RISK ASSOCIATED WITH CHOL/HDL RATIOS: Risk Male Female1/2 AVERAGE 3.43 3.27AVERAGE 4.97 4.442X AVERAGE 9.55 7.053X AVERAGE 23.39 11.04 REFERENCE VALUE IS RELATED TO RISK LEVELS ASRECOMMENDED BY THE GABY. HEART, LUNG, AND BLOOD INST. HDL CHOLESTEROL (test code = HDL) 36 mg/dL 40-60 L LIPOPROTEIN LDL (test code = LDL) 87 mg/dL 100-129 L Reference Interval: mg/dL mmol/L Optimal <100 <2.6Near/above optimal 100-129 2.6- 3.3Borderline High 130-159 3.4-4.1High 160-189 4.1-4.9Very High >=190 >=4.9========= This LDL result is a direct measurement.========= [id number] 17:40:00* Test Item Value Reference Range Interpretation Comments GLYCOSYLATED HEMOGLOBIN (HA1C) (test code = GLYHGB) 8.2 % HbA1 SUGGESTED DIAGNOSIS: HbA1C (%) Diabetic >6.4Prediabetes 5.7 - 6.4Normal <5.7 ESTIMATED AVERAGE GLUCOSE (test code = EAG) 189 MG/DL [id number] 16:29:00* Test Item Value Reference Range Interpretation Comments GLUBED (test code = GLUBED) 149 mg/dL 74-106 H Performed by certified shovel log loader operator at [facility] LTLBBQ2880-03-10 13:50:00* Test Item Value Reference Range Interpretation Comments GLUBED (test code = GLUBED) 183 mg/dL 74-106 H Performed by certified shovel log loader operator at [facility] ABJZQJ4493-31-58 08:45:00* Test Item Value Reference Range Interpretation Comments GLUBED (test code = GLUBED) 111 mg/dL 74-106 H Performed by certified shovel log loader operator at [facility] - CT ABD PELVIS W/PPMJ1783-42-48 23:37:00 Name: WANDA VILLASENOR [facility] : 1950 Age/S: 68 / F [address] Unit #: [id number] Loc: [place] [address] Phys: Devorah Mcfarland MD Acct: [id number] Dis Date: Status: REG ER PHONE #: [phone] Exam Date: 05/03/2019 FAX #: [phone] Reason: epigastric pain, gallbladder surgery x1 week EXAMS: CPT CODE: [id number] CT ABD PELVIS W/CONT 59520 AFTER HOURS SERVICE ON: 05/03/2019 11:[address] Scan of the Abdomen and Pelvis With Contrast Location Code M12 History: epigastric pain, gallbladder surgery x1 week Technique: Axial and reconstructed coronal scans were performed on a helical scanner post IV contrast. Delayed scans were also obtained. One or more of the following dose reduction techniques were used: Automated exposure control, adjustment of the mA and/or kV according to patient size, and/or utilization of iterative reconstruction technique. Findings: Liver surface is slightly nodular. No enhancing liver lesion is seen. Patient is status post cholecystectomy. Cholecystectomy clips are in place. There is mild edema in the gallbladder fossa and possible dense fluid collection measuring 2.0 cm. There are no peripancreatic inflammatory changes. Spleen is enlarged measuring 18.5 cm. There is a long thin filling defect in the splenic vein, proximal portal vein and splenic vein confluence of the distal SMV. The adrenal glands and kidneys are unremarkable. There is no hydronephrosis. There is edema in the central mesentery. 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 There is mild free fluid in the p silvia. Uterus is absent. Bladder is unremarkable. There is no helena wel obstruction or free air. Small bowel loops, colon and appendix are wi thin normal limits. IMPRESSION: Cholecystect renetta with mild edema in the gallbladder fossa and possible 2 cm gallbladd er fossa fluid collection. This may be consistent with a contained bilo ma or small developing abscess. Splenomegaly and long thin T-s haped nonocclusive thrombosis in the splenic vein, proximal portal vein and SMV centered around the portal vein confluence. No dular cirrhotic appearing liver. No ascites. 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 at 5147 Reported and signed by: Rachid Kelly M.D. CC: Bin Stovall MD; Devorah Mcfarland MD Technologist:GRADY RICHARDSON, RT CTDI: DLP: Trnscb Date/Time: 05/03/2019 (1981) [email or web address] Orig Print D/T: S: 05/03/2019 (0790) PAGE 2 Signed Report BASIC METABOLIC PANEL 2019-05-03 21:15:00* Test Item Value Reference Range Interpretation Comments SODIUM (test code = NA) 141 mmol/L 136-145 N POTASSIUM (test code = K) 3.7 mmol/L 3.5-5.1 N CHLORIDE (test code = CL) 108.0 mmol/L 98-107 H CARBON DIOXIDE (test code = CO2) 25.0 mmol/L 21-32 N ANION GAP (test code = GAP) 11.7 10-20 N GLUCOSE (test code = GLU) 126 mg/dL 74-106 H BLOOD UREA NITROGEN (test code = BUN) 10 mg/dL 7-18 N GLOMERULAR FILTRATION RATE (test code = GFR) > 60 mL/min >=60 Estimated GFR by using Modified MDRD formula.Chronic kidney disease is defined as either kidney damageor GFR <60 mL/min/1.73 m2 for >3 months. CREATININE (test code = CREAT) 0.70 mg/dL 0.55-1.02 N Note change in reference range due to change in reagent. BUN/CREATININE RATIO (test code = BUN/CREA) 14.3 10-20 N CALCIUM (test code = CA) 8.2 mg/dL 8.5-10.1 L HEPATIC FUNCTION [id number] 21:15:00* Test Item Value Reference Range Interpretation Comments TOTAL PROTEIN (test code = PROT) 6.9 gram/dL 6.4-8.2 N ALBUMIN (test code = ALB) 2.6 g/dL 3.4-5.0 L GLOBULIN (test code = GLOB) 4.3 gram/dL 2.7-4.2 H ALBUMIN/GLOBULIN RATIO (test code = A/G) 0.6 0.75-1.50 L BILIRUBIN TOTAL (test code = BILT) 0.90 mg/dL 0.0-1.0 N BILIRUBIN DIRECT (test code = BILD) 0.26 mg/dL 0.0-0.20 H SGOT/AST (test code = AST) 50 IUnit/L 15-37 H SGPT/ALT (test code = ALT) 32 IUnit/L 12-78 N ALKALINE PHOSPHATASE TOTAL (test code = ALKP) 174 IUnit/L 45-117 H Note change in reference range due to change in reagent. [id number] 21:15:00* Test Item Value Reference Range Interpretation Comments LIPASE (test code = LIP) 82 U/L 73.0-393.0 N [id number] 21:15:00* Test Item Value Reference Range Interpretation Comments TROPONIN-I (test code = TROPI) <0.015 ng/mL 0-0.045 N URINALYSIS [id number] 21:00:00* Test Item Value Reference Range Interpretation Comments UA COLOR (test code = COLU) YELLOW YELLOW UA APPEARANCE (test code = APPU) Cloudy CLEAR A UA GLUCOSE DIPSTICK (test code = DGLUU) NEGATIVE mg/dL NEGATIVE UA BILIRUBIN DIPSTICK (test code = BILU) NEGATIVE mg/dL NEGATIVE UA KETONE DIPSTICK (test code = KETU) NEGATIVE mg/dL NEGATIVE UA SPECIFIC GRAVITY (test code = SGU) 1.025 1.001-1.035 UA BLOOD DIPSTICK (test code = MARIE) Negative mg/dL NEGATIVE UA PH DIPSTICK (test code = LATESHA) 6.0 5.0-8.0 UA PROTEIN DIPSTICK (test code = PROU) 30 (1+) mg/dL NEGATIVE A UA UROBILINIOGEN DIPSTICK (test code = URO) 3.0 (1+) mg/dL NEGATIVE A UA NITRITE DIPSTICK (test code = JON) NEGATIVE NEGATIVE UA LEUKOCYTE ESTERASE W REFLEX (test code = LEUUR) 500 Cecile/u L (3+) Cecile/uL NEGATIVE A UA WBC (test code = WBCU) 21-50 per HPF 0-5 A UA RBC (test code = RBCU) 3-5 #/HPF 0-5 UA EPITHELIAL CELLS (test code = EPIU) MANY per HPF FEW UA BACTERIA (test code = BACU) MODERATE #/HPF NONE A UA MUCUS (test code = MUCU) MANY #/LPF FEW A Urine Source? Clean CatchBASIC METABOLIC [id number] 20:58:00* Test Item Value Reference Range Interpretation Comments SODIUM (test code = NA) 141 mmol/L 136-145 N POTASSIUM (test code = K) 3.7 mmol/L 3.5-5.1 N CHLORIDE (test code = CL) 108.0 mmol/L 98-107 H CARBON DIOXIDE (test code = CO2) mmol/L 21-32 ANION GAP (test code = GAP) 10-20 GLUCOSE (test code = GLU) mg/dL 74-106 BLOOD UREA NITROGEN (test code = BUN) mg/dL 7-18 GLOMERULAR FILTRATION RATE (test code = GFR) mL/min >=60 CREATININE (test code = CREAT) mg/dL 0.55-1.02 BUN/CREATININE RATIO (test code = BUN/CREA) 10-20 CALCIUM (test code = CA) mg/dL 8.5-10.1 HEPATIC FUNCTION [id number] 20:58:00* Test Item Value Reference Range Interpretation Comments TOTAL PROTEIN (test code = PROT) gram/dL 6.4-8.2 ALBUMIN (test code = ALB) g/dL 3.4-5.0 GLOBULIN (test code = GLOB) gram/dL 2.7-4.2 ALBUMIN/GLOBULIN RATIO (test code = A/G) 0.75-1.50 BILIRUBIN TOTAL (test code = BILT) mg/dL 0.0-1.0 BILIRUBIN DIRECT (test code = BILD) mg/dL 0.0-0.20 SGOT/AST (test code = AST) IUnit/L 15-37 SGPT/ALT (test code = ALT) IUnit/L 12-78 ALKALINE PHOSPHATASE TOTAL (test code = ALKP) IUnit/L 45-117 [id number] 20:58:00* Test Item Value Reference Range Interpretation Comments LIPASE (test code = LIP) U/L 73.0-393.0 [id number] 20:58:00* Test Item Value Reference Range Interpretation Comments TROPONIN-I (test code = TROPI) ng/mL 0-0.045 CBC W/O [id number] 20:58:00* Test Item Value Reference Range Interpretation Comments WHITE BLOOD CELL (test code = WBC) 4.0 K/mm3 4.5-12.5 L RED BLOOD CELL (test code = RBC) 3.90 mill/mm3 3.7-5.2 N HEMOGLOBIN (test code = HGB) 12.0 gram/dL 11.5-15.5 N HEMATOCRIT (test code = HCT) 34.5 % 36.0-46.0 L MEAN CELL VOLUME (test code = MCV) 88.5 fL 80-98 N MEAN CELL HGB (test code = MCH) 30.5 picogram 27.0-33.0 N MEAN CELL HGB CONCETRATION (test code = MCHC) 34.5 gram/dL 33.0-36. 0 N RED CELL DISTRIBUTION WIDTH (test code = RDW) 15.7 % 11.6-16. 2 N PLATELET COUNT (test code = PLT) 83 K/mm3 150-450 L MEAN PLATELET VOLUME (test code = MPV) 12.2 fL 6.7-11.0 H URINALYSIS [id number] 20:54:00* Test Item Value Reference Range Interpretation Comments UA COLOR (test code = COLU) YELLOW YELLOW UA APPEARANCE (test code = APPU) Cloudy CLEAR A UA GLUCOSE DIPSTICK (test code = DGLUU) NEGATIVE mg/dL NEGATIVE UA BILIRUBIN DIPSTICK (test code = BILU) NEGATIVE mg/dL NEGATIVE UA KETONE DIPSTICK (test code = KETU) NEGATIVE mg/dL NEGATIVE UA SPECIFIC GRAVITY (test code = SGU) 1.025 1.001-1.035 UA BLOOD DIPSTICK (test code = MARIE) Negative mg/dL NEGATIVE UA PH DIPSTICK (test code = LATESHA) 6.0 5.0-8.0 UA PROTEIN DIPSTICK (test code = PROU) 30 (1+) mg/dL NEGATIVE A UA UROBILINIOGEN DIPSTICK (test code = URO) 3.0 (1+) mg/dL NEGATIVE A UA NITRITE DIPSTICK (test code = JON) NEGATIVE NEGATIVE UA LEUKOCYTE ESTERASE W REFLEX (test code = LEUUR) 500 Cecile/u L (3+) Cecile/uL NEGATIVE A UA WBC (test code = WBCU) per HPF 0-5 UA RBC (test code = RBCU) per HPF 0-5 UA EPITHELIAL CELLS (test code = EPIU) per HPF Few UA BACTERIA (test code = BACU) per HPF NONE Urine Source? Clean CatchCBC W/O [id number] 20:52:00* Test Item Value Reference Range Interpretation Comments WHITE BLOOD CELL (test code = WBC) K/mm3 4.5-12.5 RED BLOOD CELL (test code = RBC) mill/mm3 3.7-5.2 HEMOGLOBIN (test code = HGB) 12.0 gram/dL 11.5-15.5 N HEMATOCRIT (test code = HCT) % 36.0-46.0 MEAN CELL VOLUME (test code = MCV) fL 80-98 MEAN CELL HGB (test code = MCH) picogram 27.0-33.0 MEAN CELL HGB CONCETRATION (test code = MCHC) gram/dL 33.0-36. 0 RED CELL DISTRIBUTION WIDTH (test code = RDW) % 11.6-16. 2 PLATELET COUNT (test code = PLT) K/mm3 150-450 MEAN PLATELET VOLUME (test code = MPV) fL 6.7-11.0 LEUK/LYMPH MARKERS [id number] 15:04:00* Test Item Value Reference Range Interpretation Comments LEUK/LYMPHOMA PANEL (test code = LEULYM) CLINICAL () No monoclonal B cell population is detected.kappa:lambda ratio 1.2There is no loss of, or aberrant expression of, the grady T cell antigens tosuggest a neoplastic T cell process.CD4:CD8 ratio 1.9No circulating blasts are detected. There is no immunophenotypic evidenceof abnormal myeloid maturation.Analysis of the leukocyte population shows: granulocytes 68%, monocytes 4%,lymphocytes 28%, blasts <0.1%, B cells 5%, T cells 21%, NK cells 2%. COMMENT(S) (test code = COMM) () Peripheral blood VIABILITY (test code = VIABILI) () 92% FLOW CYTO INTERPRETATION (test code = INTFLOW) () Leandra Guzman GATING STRATEGY (test code = GATSTRAT) () 8-color analysis with CD45/SSC gating COMMENT(S) (test code = COM) TEST NOT PERFORMED LEUK/LYMPH MARKERS [id number] 09:10:00* Test Item Value Reference Range Interpretation Comments LEUK/LYMPHOMA PANEL (test code = LEULYM) CLINICAL () No monoclonal B cell population is detected.kappa:lambda ratio 1.2There is no loss of, or aberrant expression of, the grady T cell antigens tosuggest a neoplastic T cell process.CD4:CD8 ratio 1.9No circulating blasts are detected. There is no immunophenotypic evidenceof abnormal myeloid maturation.Analysis of the leukocyte population shows: granulocytes 68%, monocytes 4%,lymphocytes 28%, blasts <0.1%, B cells 5%, T cells 21%, NK cells 2%. COMMENT(S) (test code = COMM) () Peripheral blood VIABILITY (test code = VIABILI) () 92% FLOW CYTO INTERPRETATION (test code = INTFLOW) () Leandra Guzman GATING STRATEGY (test code = GATSTRAT) () 8-color analysis with CD45/SSC gating COMMENT(S) (test code = COM) [id number] 16:01:00 RUN DATE: 04/16/19 [facility] PAGE 1 RUN TIME: 1601 Specimen Inqui ry RUN USER: INTERFACE PATIENT: WANDA VILLASENOR V ACCT #: [id number] LOC: [facility] U #: [id number] AGE/SX: 68/F ROOM: Janice5 RE04/11/19REG DR: Artem Esposito MD : [birth year] BED: B DIS: STATUS: ADM IN TLOC: SPEC #: [id number] RECD: 04/15/19 STATUS: TRUE JOSE #: [id number] ISRAEL: 04/15/19- SUBM DR: Jaylan Greenberg MD ENTERED: 04/15/19-1431 SP TYPE: GALLBLADD OTHR DR: Keren Fitzpatrick MD, Amir A MD Romero, Alberto J MDORDERED: GROSS COPIES TO: Jaylan Greenberg MD [address] [place], [place] [id number] Junaid Fitzpatrick MD [address] [facility] [address] [place] [address] [place] [address] [facility] [address] [place] [address] Bin Stovall MD [address] [facility] [place], [place] [id number] MARKERS: ABNORMAL TISSUE, GALLBLADDER PROCEDURES: GROSS (04/16/19-150) TISSUES: GALLBLADDER, NO S CLINICAL HISTORY COLLECTION DATE: 04/15/19 CHOLECYSTITIS FINAL DIAGNOSIS Gallbladder, cholecystectomy: CHRONIC ACALCULOUS CH OLECYSTITIS NEGATIVE FOR MALIGNANCY CONTINUED ON NEXT PAGE RUN DATE: 04/16/19 [facility] PAGE 2 RUN TIME: 1601 Specimen Inquiry RUN USER: INTERFACE SPEC #: [id number] PATIENT: WANDA VILLASENOR V #[id number] (Continued)--------- --- FINAL DIAGNOSIS (Continued) RRB/scott A [id number] MACROSCOPIC The specimen is received in formalin, labeled with the pat ient's name, and identified as "gallbladder". It consists of small gallbladde r that has been previously incised. The specimen has a reconstructed length o f approximately 5.5 cm in diameter up to 2.0 cm. A portion of tissue compatib le with duct is identified measuring 1.1 cm in length. The serosal surface is pink and smooth. The mucosal surface is dark pink-red and velvety. The gallb ladder wall measures up to 0.3 cm in thickness. No focal lesions are identifi ed. No stones are identified within the tissue or the specimen container. Inspector Repairer [place] tissue is submitted in a single cassette. GROSS PERFORMED A T [facility] [address] [place] [address] (p)[phone] MICROSCOPIC All o f the stains, including any controls performed, stain appropriately. MICRO SCOPIC PERFORMED AT [facility] [address] [place] [address] ([phone] PERFORMING SITE Diagnosis performed at: [facility], [place] [address] [facility], [place] [address] Signed SIGNATURE ON FILE Darion Webster MD 04/16/19 1601 END OF REPORT [id number] 11:39:00* Test Item Value Reference Range Interpretation Comments GLUBED (test code = GLUBED) 271 mg/dL 74-106 H Performed by certified shovel log loader operator at [facility] [id number] 07:09:00* Test Item Value Reference Range Interpretation Comments GLUBED (test code = GLUBED) 246 mg/dL 74-106 H Performed by certified shovel log loader operator at [facility] CBC W/MANUAL [id number] 06:56:00* Test Item Value Reference Range Interpretation Comments WHITE BLOOD CELL (test code = WBC) 4.0 K/mm3 4.5-12.5 L RED BLOOD CELL (test code = RBC) 3.71 mill/mm3 3.7-5.2 N HEMOGLOBIN (test code = HGB) 12.7 gram/dL 11.5-15.5 N HEMATOCRIT (test code = HCT) 32.9 % 36.0-46.0 L MEAN CELL VOLUME (test code = MCV) 88.7 fL 80-98 N MEAN CELL HGB (test code = MCH) 34.2 picogram 27.0-33.0 H MEAN CELL HGB CONCETRATION (test code = MCHC) 38.6 gram/dL 33.0-36. 0 H RED CELL DISTRIBUTION WIDTH (test code = RDW) 14.8 % 11.6-16. 2 N RED CELL DISTRIBUTION WIDTH SD (test code = RDW-SD) 46.5 fL 37 .0-51.0 N PLATELET COUNT (test code = PLT) 45 K/mm3 150-450 LL Results called to [id number] by V.LAB.KN2 04/16/19 0611Critical results verified and read back by Nurse? Y MEAN PLATELET VOLUME (test code = MPV) 12.3 fL 6.7-11.0 H IMMATURE GRANULOCYTE % (test code = IG%) 2.2 % 0.0-5.0 N NUCLEATED RBC % (test code = NRBC%) 0.0 % 0-0 N NEUTROPHIL # (test code = NT#) 3.32 K/mm3 1.8-7.7 N IMMATURE GRANULOCYTE # (test code = IG#) 0.09 x10 3/uL 0-0.03 H LYMPHOCYTE # (test code = LY#) 0.45 K/mm3 1.0-5.0 L MONOCYTE # (test code = MO#) 0.16 K/mm3 0-0.8 N EOSINOPHIL # (test code = EO#) 0.00 K/mm3 0.0-0.5 N BASOPHIL # (test code = BA#) 0.01 K/mm3 0.0-0.2 N NUCLEATED RBC # (test code = NRBC#) 0.00 K/mm3 0.0-0.1 N MANUAL DIFF REQUIRED (test code = MDIFF) YES STAIN ACCEPTABILITY (test code = STN ACCEPTABLE) STAIN ACCEPTABLE TOTAL CELLS COUNTED (test code = TCC) 115 #CELLS SEGMENTED NEUTROPHILS (test code = SEG) 87.0 % 39-69 H BAND NEUTROPHIL (test code = BAND) 0 % 0-10 N LYMPHOCYTE (test code = LYMPH) 4.3 % 25-55 L REACTIVE LYMPH (test code = RELYMPH) 2.6 % MONOCYTE (test code = MON) 6.1 % 0-10 N EOSINOPHIL (test code = EOS) 0 % 0.0-5.0 N BASOPHIL (test code = BASO) 0 % 0-1.0 N METAMYELOCYTE (test code = META) 0 % 0-0 N MYELOCYTE (test code = MYELO) 0 % 0.0-0.0 N PROMYELOCYTE (test code = PROM) 0 % 0-0 N POIKILOCYTOSIS (test code = POIK) 1+ ROULEAUX (test code = ROU) MODERATE PLATELET ESTIMATE (test code = PLTEST) DECREASED PLATELET MORPHOLOGY (test code = PLTMORPH) NORMAL IMMATURE FORMS (test code = IMMAT) 0 % 0-0 N COMPREHENSIVE METABOLIC [id number] 06:32:00* Test Item Value Reference Range Interpretation Comments SODIUM (test code = NA) 139 mmol/L 136-145 N POTASSIUM (test code = K) 4.3 mmol/L 3.5-5.1 N CHLORIDE (test code = CL) 107.0 mmol/L 98-107 N CARBON DIOXIDE (test code = CO2) 25.0 mmol/L 21-32 N ANION GAP (test code = GAP) 11.3 10-20 N GLUCOSE (test code = GLU) 265 mg/dL 74-106 H BLOOD UREA NITROGEN (test code = BUN) 15 mg/dL 7-18 N GLOMERULAR FILTRATION RATE (test code = GFR) > 60 mL/min >=60 Estimated GFR by using Modified MDRD formula.Chronic kidney disease is defined as either kidney damageor GFR <60 mL/min/1.73 m2 for >3 months. CREATININE (test code = CREAT) 0.70 mg/dL 0.55-1.02 N Note change in reference range due to change in reagent. BUN/CREATININE RATIO (test code = BUN/CREA) 21.4 10-20 H TOTAL PROTEIN (test code = PROT) 6.7 gram/dL 6.4-8.2 N ALBUMIN (test code = ALB) 2.3 g/dL 3.4-5.0 L GLOBULIN (test code = GLOB) 4.4 gram/dL 2.7-4.2 H ALBUMIN/GLOBULIN RATIO (test code = A/G) 0.5 0.75-1.50 L CALCIUM (test code = CA) 8.0 mg/dL 8.5-10.1 L BILIRUBIN TOTAL (test code = BILT) 0.50 mg/dL 0.0-1.0 N SGOT/AST (test code = AST) 92 IUnit/L 15-37 H SGPT/ALT (test code = ALT) 78 IUnit/L 12-78 N ALKALINE PHOSPHATASE TOTAL (test code = ALKP) 130 IUnit/L 45-117 H Note change in reference range due to change in reagent. COMPREHENSIVE METABOLIC [id number] 06:21:00* Test Item Value Reference Range Interpretation Comments SODIUM (test code = NA) 139 mmol/L 136-145 N POTASSIUM (test code = K) 4.3 mmol/L 3.5-5.1 N CHLORIDE (test code = CL) 107.0 mmol/L 98-107 N CARBON DIOXIDE (test code = CO2) mmol/L 21-32 ANION GAP (test code = GAP) 10-20 GLUCOSE (test code = GLU) mg/dL 74-106 BLOOD UREA NITROGEN (test code = BUN) mg/dL 7-18 GLOMERULAR FILTRATION RATE (test code = GFR) mL/min >=60 CREATININE (test code = CREAT) mg/dL 0.55-1.02 BUN/CREATININE RATIO (test code = BUN/CREA) 10-20 TOTAL PROTEIN (test code = PROT) gram/dL 6.4-8.2 ALBUMIN (test code = ALB) g/dL 3.4-5.0 GLOBULIN (test code = GLOB) gram/dL 2.7-4.2 ALBUMIN/GLOBULIN RATIO (test code = A/G) 0.75-1.50 CALCIUM (test code = CA) mg/dL 8.5-10.1 BILIRUBIN TOTAL (test code = BILT) mg/dL 0.0-1.0 SGOT/AST (test code = AST) IUnit/L 15-37 SGPT/ALT (test code = ALT) IUnit/L 12-78 ALKALINE PHOSPHATASE TOTAL (test code = ALKP) IUnit/L 45-117 CBC W/MANUAL [id number] 06:11:00* Test Item Value Reference Range Interpretation Comments WHITE BLOOD CELL (test code = WBC) 4.0 K/mm3 4.5-12.5 L RED BLOOD CELL (test code = RBC) 3.71 mill/mm3 3.7-5.2 N HEMOGLOBIN (test code = HGB) 12.7 gram/dL 11.5-15.5 N HEMATOCRIT (test code = HCT) 32.9 % 36.0-46.0 L MEAN CELL VOLUME (test code = MCV) 88.7 fL 80-98 N MEAN CELL HGB (test code = MCH) 34.2 picogram 27.0-33.0 H MEAN CELL HGB CONCETRATION (test code = MCHC) 38.6 gram/dL 33.0-36. 0 H RED CELL DISTRIBUTION WIDTH (test code = RDW) 14.8 % 11.6-16. 2 N RED CELL DISTRIBUTION WIDTH SD (test code = RDW-SD) 46.5 fL 37 .0-51.0 N PLATELET COUNT (test code = PLT) 45 K/mm3 150-450 LL Results called to [id number] by V.LAB.KN2 04/16/19 0611Critical results verified and read back by Nurse? Y MEAN PLATELET VOLUME (test code = MPV) 12.3 fL 6.7-11.0 H IMMATURE GRANULOCYTE % (test code = IG%) 2.2 % 0.0-5.0 N NUCLEATED RBC % (test code = NRBC%) 0.0 % 0-0 N NEUTROPHIL # (test code = NT#) 3.32 K/mm3 1.8-7.7 N IMMATURE GRANULOCYTE # (test code = IG#) 0.09 x10 3/uL 0-0.03 H LYMPHOCYTE # (test code = LY#) 0.45 K/mm3 1.0-5.0 L MONOCYTE # (test code = MO#) 0.16 K/mm3 0-0.8 N EOSINOPHIL # (test code = EO#) 0.00 K/mm3 0.0-0.5 N BASOPHIL # (test code = BA#) 0.01 K/mm3 0.0-0.2 N NUCLEATED RBC # (test code = NRBC#) 0.00 K/mm3 0.0-0.1 N MANUAL DIFF REQUIRED (test code = MDIFF) YES STAIN ACCEPTABILITY (test code = STN ACCEPTABLE) TOTAL CELLS COUNTED (test code = TCC) #CELLS SEGMENTED NEUTROPHILS (test code = SEG) % 39-69 LYMPHOCYTE (test code = LYMPH) % 25-55 MONOCYTE (test code = MON) % 0-10 EOSINOPHIL (test code = EOS) % 0.0-5.0 CABOT RINGS (test code = CAB) MORPHOLOGY COMMENT (test code = MOC) PLATELET ESTIMATE (test code = PLTEST) PLATELET MORPHOLOGY (test code = PLTMORPH) CBC W/MANUAL [id number] 06:11:00* Test Item Value Reference Range Interpretation Comments WHITE BLOOD CELL (test code = WBC) 4.0 K/mm3 4.5-12.5 L RED BLOOD CELL (test code = RBC) 3.71 mill/mm3 3.7-5.2 N HEMOGLOBIN (test code = HGB) 12.7 gram/dL 11.5-15.5 N HEMATOCRIT (test code = HCT) 32.9 % 36.0-46.0 L MEAN CELL VOLUME (test code = MCV) 88.7 fL 80-98 N MEAN CELL HGB (test code = MCH) 34.2 picogram 27.0-33.0 H MEAN CELL HGB CONCETRATION (test code = MCHC) 38.6 gram/dL 33.0-36. 0 H RED CELL DISTRIBUTION WIDTH (test code = RDW) 14.8 % 11.6-16. 2 N RED CELL DISTRIBUTION WIDTH SD (test code = RDW-SD) 46.5 fL 37 .0-51.0 N PLATELET COUNT (test code = PLT) 45 K/mm3 150-450 LL Results called to [id number] by RASHEEDA 04/16/19 0611Critical results verified and read back by Nurse? Y MEAN PLATELET VOLUME (test code = MPV) 12.3 fL 6.7-11.0 H IMMATURE GRANULOCYTE % (test code = IG%) 2.2 % 0.0-5.0 N NUCLEATED RBC % (test code = NRBC%) 0.0 % 0-0 N NEUTROPHIL # (test code = NT#) 3.32 K/mm3 1.8-7.7 N IMMATURE GRANULOCYTE # (test code = IG#) 0.09 x10 3/uL 0-0.03 H LYMPHOCYTE # (test code = LY#) 0.45 K/mm3 1.0-5.0 L MONOCYTE # (test code = MO#) 0.16 K/mm3 0-0.8 N EOSINOPHIL # (test code = EO#) 0.00 K/mm3 0.0-0.5 N BASOPHIL # (test code = BA#) 0.01 K/mm3 0.0-0.2 N NUCLEATED RBC # (test code = NRBC#) 0.00 K/mm3 0.0-0.1 N MANUAL DIFF REQUIRED (test code = MDIFF) YES STAIN ACCEPTABILITY (test code = STN ACCEPTABLE) TOTAL CELLS COUNTED (test code = TCC) #CELLS SEGMENTED NEUTROPHILS (test code = SEG) % 39-69 LYMPHOCYTE (test code = LYMPH) % 25-55 MONOCYTE (test code = MON) % 0-10 EOSINOPHIL (test code = EOS) % 0.0-5.0 CABOT RINGS (test code = CAB) MORPHOLOGY COMMENT (test code = MOC) PLATELET ESTIMATE (test code = PLTEST) PLATELET MORPHOLOGY (test code = PLTMORPH) CBC W/MANUAL [id number] 06:11:00* Test Item Value Reference Range Interpretation Comments WHITE BLOOD CELL (test code = WBC) 4.0 K/mm3 4.5-12.5 L RED BLOOD CELL (test code = RBC) 3.71 mill/mm3 3.7-5.2 N HEMOGLOBIN (test code = HGB) 12.7 gram/dL 11.5-15.5 N HEMATOCRIT (test code = HCT) 32.9 % 36.0-46.0 L MEAN CELL VOLUME (test code = MCV) 88.7 fL 80-98 N MEAN CELL HGB (test code = MCH) 34.2 picogram 27.0-33.0 H MEAN CELL HGB CONCETRATION (test code = MCHC) 38.6 gram/dL 33.0-36. 0 H RED CELL DISTRIBUTION WIDTH (test code = RDW) 14.8 % 11.6-16. 2 N RED CELL DISTRIBUTION WIDTH SD (test code = RDW-SD) 46.5 fL 37 .0-51.0 N PLATELET COUNT (test code = PLT) 45 K/mm3 150-450 LL Results called to [id number] by [email or web address] 04/16/19 0611Critical results verified and read back by Nurse? Y MEAN PLATELET VOLUME (test code = MPV) 12.3 fL 6.7-11.0 H IMMATURE GRANULOCYTE % (test code = IG%) 2.2 % 0.0-5.0 N NUCLEATED RBC % (test code = NRBC%) 0.0 % 0-0 N NEUTROPHIL # (test code = NT#) 3.32 K/mm3 1.8-7.7 N IMMATURE GRANULOCYTE # (test code = IG#) 0.09 x10 3/uL 0-0.03 H LYMPHOCYTE # (test code = LY#) 0.45 K/mm3 1.0-5.0 L MONOCYTE # (test code = MO#) 0.16 K/mm3 0-0.8 N EOSINOPHIL # (test code = EO#) 0.00 K/mm3 0.0-0.5 N BASOPHIL # (test code = BA#) 0.01 K/mm3 0.0-0.2 N NUCLEATED RBC # (test code = NRBC#) 0.00 K/mm3 0.0-0.1 N MANUAL DIFF REQUIRED (test code = MDIFF) YES STAIN ACCEPTABILITY (test code = STN ACCEPTABLE) TOTAL CELLS COUNTED (test code = TCC) #CELLS SEGMENTED NEUTROPHILS (test code = SEG) % 39-69 LYMPHOCYTE (test code = LYMPH) % 25-55 MONOCYTE (test code = MON) % 0-10 EOSINOPHIL (test code = EOS) % 0.0-5.0 MORPHOLOGY COMMENT (test code = MOC) PLATELET ESTIMATE (test code = PLTEST) PLATELET MORPHOLOGY (test code = PLTMORPH) CBC W/MANUAL [id number] 06:11:00* Test Item Value Reference Range Interpretation Comments WHITE BLOOD CELL (test code = WBC) 4.0 K/mm3 4.5-12.5 L RED BLOOD CELL (test code = RBC) 3.71 mill/mm3 3.7-5.2 N HEMOGLOBIN (test code = HGB) 12.7 gram/dL 11.5-15.5 N HEMATOCRIT (test code = HCT) 32.9 % 36.0-46.0 L MEAN CELL VOLUME (test code = MCV) 88.7 fL 80-98 N MEAN CELL HGB (test code = MCH) 34.2 picogram 27.0-33.0 H MEAN CELL HGB CONCETRATION (test code = MCHC) 38.6 gram/dL 33.0-36. 0 H RED CELL DISTRIBUTION WIDTH (test code = RDW) 14.8 % 11.6-16. 2 N RED CELL DISTRIBUTION WIDTH SD (test code = RDW-SD) 46.5 fL 37 .0-51.0 N PLATELET COUNT (test code = PLT) 45 K/mm3 150-450 LL Results called to [id number] by [email or web address] 04/16/19 0611Critical results verified and read back by Nurse? Y MEAN PLATELET VOLUME (test code = MPV) 12.3 fL 6.7-11.0 H IMMATURE GRANULOCYTE % (test code = IG%) 2.2 % 0.0-5.0 N NUCLEATED RBC % (test code = NRBC%) 0.0 % 0-0 N NEUTROPHIL # (test code = NT#) 3.32 K/mm3 1.8-7.7 N IMMATURE GRANULOCYTE # (test code = IG#) 0.09 x10 3/uL 0-0.03 H LYMPHOCYTE # (test code = LY#) 0.45 K/mm3 1.0-5.0 L MONOCYTE # (test code = MO#) 0.16 K/mm3 0-0.8 N EOSINOPHIL # (test code = EO#) 0.00 K/mm3 0.0-0.5 N BASOPHIL # (test code = BA#) 0.01 K/mm3 0.0-0.2 N NUCLEATED RBC # (test code = NRBC#) 0.00 K/mm3 0.0-0.1 N MANUAL DIFF REQUIRED (test code = MDIFF) YES STAIN ACCEPTABILITY (test code = STN ACCEPTABLE) TOTAL CELLS COUNTED (test code = TCC) #CELLS SEGMENTED NEUTROPHILS (test code = SEG) % 39-69 LYMPHOCYTE (test code = LYMPH) % 25-55 MONOCYTE (test code = MON) % 0-10 MORPHOLOGY COMMENT (test code = MOC) PLATELET ESTIMATE (test code = PLTEST) PLATELET MORPHOLOGY (test code = PLTMORPH) CBC W/MANUAL [id number] 06:11:00* Test Item Value Reference Range Interpretation Comments WHITE BLOOD CELL (test code = WBC) 4.0 K/mm3 4.5-12.5 L RED BLOOD CELL (test code = RBC) 3.71 mill/mm3 3.7-5.2 N HEMOGLOBIN (test code = HGB) 12.7 gram/dL 11.5-15.5 N HEMATOCRIT (test code = HCT) 32.9 % 36.0-46.0 L MEAN CELL VOLUME (test code = MCV) 88.7 fL 80-98 N MEAN CELL HGB (test code = MCH) 34.2 picogram 27.0-33.0 H MEAN CELL HGB CONCETRATION (test code = MCHC) 38.6 gram/dL 33.0-36. 0 H RED CELL DISTRIBUTION WIDTH (test code = RDW) 14.8 % 11.6-16. 2 N RED CELL DISTRIBUTION WIDTH SD (test code = RDW-SD) 46.5 fL 37 .0-51.0 N PLATELET COUNT (test code = PLT) 45 K/mm3 150-450 LL Results called to [id number] by V.EVERETT.KN2 04/16/19 0611Critical results verified and read back by Nurse? Y MEAN PLATELET VOLUME (test code = MPV) 12.3 fL 6.7-11.0 H IMMATURE GRANULOCYTE % (test code = IG%) 2.2 % 0.0-5.0 N NUCLEATED RBC % (test code = NRBC%) 0.0 % 0-0 N NEUTROPHIL # (test code = NT#) 3.32 K/mm3 1.8-7.7 N IMMATURE GRANULOCYTE # (test code = IG#) 0.09 x10 3/uL 0-0.03 H LYMPHOCYTE # (test code = LY#) 0.45 K/mm3 1.0-5.0 L MONOCYTE # (test code = MO#) 0.16 K/mm3 0-0.8 N EOSINOPHIL # (test code = EO#) 0.00 K/mm3 0.0-0.5 N BASOPHIL # (test code = BA#) 0.01 K/mm3 0.0-0.2 N NUCLEATED RBC # (test code = NRBC#) 0.00 K/mm3 0.0-0.1 N MANUAL DIFF REQUIRED (test code = MDIFF) YES STAIN ACCEPTABILITY (test code = STN ACCEPTABLE) TOTAL CELLS COUNTED (test code = TCC) #CELLS SEGMENTED NEUTROPHILS (test code = SEG) % 39-69 LYMPHOCYTE (test code = LYMPH) % 25-55 MONOCYTE (test code = MON) % 0-10 EOSINOPHIL (test code = EOS) % 0.0-5.0 CABOT RINGS (test code = CAB) MORPHOLOGY COMMENT (test code = MOC) PLATELET ESTIMATE (test code = PLTEST) PLATELET MORPHOLOGY (test code = PLTMORPH) [id number] 21:39:00* Test Item Value Reference Range Interpretation Comments GLUBED (test code = GLUBED) 266 mg/dL 74-106 H Performed by certified shovel log loader operator at [facility] [id number] 16:42:00* Test Item Value Reference Range Interpretation Comments GLUBED (test code = GLUBED) 209 mg/dL 74-106 H Performed by certified shovel log loader operator at [facility] [id number] 13:21:00* Test Item Value Reference Range Interpretation Comments GLUBED (test code = GLUBED) 119 mg/dL 74-106 H Performed by certified shovel log loader operator at [facility] CBC W/MANUAL [id number] 07:46:00* Test Item Value Reference Range Interpretation Comments WHITE BLOOD CELL (test code = WBC) 5.0 K/mm3 4.5-12.5 N RED BLOOD CELL (test code = RBC) 4.08 mill/mm3 3.7-5.2 N HEMOGLOBIN (test code = HGB) 12.1 gram/dL 11.5-15.5 N HEMATOCRIT (test code = HCT) 35.5 % 36.0-46.0 L MEAN CELL VOLUME (test code = MCV) 87.0 fL 80-98 N MEAN CELL HGB (test code = MCH) 29.7 picogram 27.0-33.0 N MEAN CELL HGB CONCETRATION (test code = MCHC) 34.1 gram/dL 33.0-36. 0 N RED CELL DISTRIBUTION WIDTH (test code = RDW) 14.7 % 11.6-16. 2 N RED CELL DISTRIBUTION WIDTH SD (test code = RDW-SD) 45.2 fL 37 .0-51.0 N PLATELET COUNT (test code = PLT) 35 K/mm3 150-450 LL Results called to [id number] by Ajith.EVERETT.FARIDEH 04/15/19 0700Critical results verified and read back by Nurse? Y MEAN PLATELET VOLUME (test code = MPV) 12.8 fL 6.7-11.0 H IMMATURE GRANULOCYTE % (test code = IG%) 1.0 % 0.0-5.0 N NUCLEATED RBC % (test code = NRBC%) 0.0 % 0-0 N NEUTROPHIL # (test code = NT#) 3.78 K/mm3 1.8-7.7 N IMMATURE GRANULOCYTE # (test code = IG#) 0.05 x10 3/uL 0-0.03 H LYMPHOCYTE # (test code = LY#) 0.82 K/mm3 1.0-5.0 L MONOCYTE # (test code = MO#) 0.30 K/mm3 0-0.8 N EOSINOPHIL # (test code = EO#) 0.03 K/mm3 0.0-0.5 N BASOPHIL # (test code = BA#) 0.01 K/mm3 0.0-0.2 N NUCLEATED RBC # (test code = NRBC#) 0.00 K/mm3 0.0-0.1 N MANUAL DIFF REQUIRED (test code = MDIFF) YES STAIN ACCEPTABILITY (test code = STN ACCEPTABLE) STAIN ACCEPTABLE TOTAL CELLS COUNTED (test code = TCC) 115 #CELLS SEGMENTED NEUTROPHILS (test code = SEG) 63.5 % 39-69 N BAND NEUTROPHIL (test code = BAND) 13.9 % 0-10 H LYMPHOCYTE (test code = LYMPH) 15.6 % 25-55 L REACTIVE LYMPH (test code = RELYMPH) 0 % MONOCYTE (test code = MON) 6.1 % 0-10 N EOSINOPHIL (test code = EOS) 0.9 % 0.0-5.0 N BASOPHIL (test code = BASO) 0 % 0-1.0 N METAMYELOCYTE (test code = META) 0 % 0-0 N MYELOCYTE (test code = MYELO) 0 % 0.0-0.0 N PROMYELOCYTE (test code = PROM) 0 % 0-0 N MORPHOLOGY COMMENT (test code = MOC) NORMAL PLATELET ESTIMATE (test code = PLTEST) DECREASED PLATELET MORPHOLOGY (test code = PLTMORPH) NORMAL IMMATURE FORMS (test code = IMMAT) 0 % 0-0 N COMPREHENSIVE METABOLIC [id number] 07:16:00* Test Item Value Reference Range Interpretation Comments SODIUM (test code = NA) 142 mmol/L 136-145 RESU LT VERIFIED BY REPEAT ANALYSIS POTASSIUM (test code = K) 3.7 mmol/L 3.5-5.1 N CHLORIDE (test code = CL) 109.0 mmol/L 98-107 H CARBON DIOXIDE (test code = CO2) 26.0 mmol/L 21-32 N ANION GAP (test code = GAP) 10.7 10-20 N GLUCOSE (test code = GLU) 188 mg/dL 74-106 H BLOOD UREA NITROGEN (test code = BUN) 22 mg/dL 7-18 H RESULT VERIFIED BY REPEAT ANALYSIS GLOMERULAR FILTRATION RATE (test code = GFR) > 60 mL/min >=60 Estimated GFR by using Modified MDRD formula.Chronic kidney disease is defined as either kidney damageor GFR <60 mL/min/1.73 m2 for >3 months. CREATININE (test code = CREAT) 0.90 mg/dL 0.55-1.02 N Note change in reference range due to change in reagent. BUN/CREATININE RATIO (test code = BUN/CREA) 24.4 10-20 H TOTAL PROTEIN (test code = PROT) 6.5 gram/dL 6.4-8.2 N ALBUMIN (test code = ALB) 2.4 g/dL 3.4-5.0 L GLOBULIN (test code = GLOB) 4.1 gram/dL 2.7-4.2 N ALBUMIN/GLOBULIN RATIO (test code = A/G) 0.6 0.75-1.50 L CALCIUM (test code = CA) 8.2 mg/dL 8.5-10.1 L BILIRUBIN TOTAL (test code = BILT) 0.70 mg/dL 0.0-1.0 N SGOT/AST (test code = AST) 50 IUnit/L 15-37 H SGPT/ALT (test code = ALT) 54 IUnit/L 12-78 N ALKALINE PHOSPHATASE TOTAL (test code = ALKP) 117 IUnit/L 45-117 N Note change in reference range due to change in reagent. [id number] 07:10:00* Test Item Value Reference Range Interpretation Comments GLUBED (test code = GLUBED) 131 mg/dL 74-106 H Performed by certified shovel log loader operator at [facility] CBC W/MANUAL [id number] 07:00:00* Test Item Value Reference Range Interpretation Comments WHITE BLOOD CELL (test code = WBC) 5.0 K/mm3 4.5-12.5 N RED BLOOD CELL (test code = RBC) 4.08 mill/mm3 3.7-5.2 N HEMOGLOBIN (test code = HGB) 12.1 gram/dL 11.5-15.5 N HEMATOCRIT (test code = HCT) 35.5 % 36.0-46.0 L MEAN CELL VOLUME (test code = MCV) 87.0 fL 80-98 N MEAN CELL HGB (test code = MCH) 29.7 picogram 27.0-33.0 N MEAN CELL HGB CONCETRATION (test code = MCHC) 34.1 gram/dL 33.0-36. 0 N RED CELL DISTRIBUTION WIDTH (test code = RDW) 14.7 % 11.6-16. 2 N RED CELL DISTRIBUTION WIDTH SD (test code = RDW-SD) 45.2 fL 37 .0-51.0 N PLATELET COUNT (test code = PLT) 35 K/mm3 150-450 LL Results called to [id number] by V.LAB.FARIDEH 04/15/19 0700Critical results verified and read back by Nurse? Y MEAN PLATELET VOLUME (test code = MPV) 12.8 fL 6.7-11.0 H IMMATURE GRANULOCYTE % (test code = IG%) 1.0 % 0.0-5.0 N NUCLEATED RBC % (test code = NRBC%) 0.0 % 0-0 N NEUTROPHIL # (test code = NT#) 3.78 K/mm3 1.8-7.7 N IMMATURE GRANULOCYTE # (test code = IG#) 0.05 x10 3/uL 0-0.03 H LYMPHOCYTE # (test code = LY#) 0.82 K/mm3 1.0-5.0 L MONOCYTE # (test code = MO#) 0.30 K/mm3 0-0.8 N EOSINOPHIL # (test code = EO#) 0.03 K/mm3 0.0-0.5 N BASOPHIL # (test code = BA#) 0.01 K/mm3 0.0-0.2 N NUCLEATED RBC # (test code = NRBC#) 0.00 K/mm3 0.0-0.1 N MANUAL DIFF REQUIRED (test code = MDIFF) YES STAIN ACCEPTABILITY (test code = STN ACCEPTABLE) TOTAL CELLS COUNTED (test code = TCC) #CELLS SEGMENTED NEUTROPHILS (test code = SEG) % 39-69 LYMPHOCYTE (test code = LYMPH) % 25-55 MONOCYTE (test code = MON) % 0-10 EOSINOPHIL (test code = EOS) % 0.0-5.0 CABOT RINGS (test code = CAB) MORPHOLOGY COMMENT (test code = MOC) PLATELET ESTIMATE (test code = PLTEST) PLATELET MORPHOLOGY (test code = PLTMORPH) CBC W/MANUAL [id number] 07:00:00* Test Item Value Reference Range Interpretation Comments WHITE BLOOD CELL (test code = WBC) 5.0 K/mm3 4.5-12.5 N RED BLOOD CELL (test code = RBC) 4.08 mill/mm3 3.7-5.2 N HEMOGLOBIN (test code = HGB) 12.1 gram/dL 11.5-15.5 N HEMATOCRIT (test code = HCT) 35.5 % 36.0-46.0 L MEAN CELL VOLUME (test code = MCV) 87.0 fL 80-98 N MEAN CELL HGB (test code = MCH) 29.7 picogram 27.0-33.0 N MEAN CELL HGB CONCETRATION (test code = MCHC) 34.1 gram/dL 33.0-36. 0 N RED CELL DISTRIBUTION WIDTH (test code = RDW) 14.7 % 11.6-16. 2 N RED CELL DISTRIBUTION WIDTH SD (test code = RDW-SD) 45.2 fL 37 .0-51.0 N PLATELET COUNT (test code = PLT) 35 K/mm3 150-450 LL Results called to [id number] by V.LAB.JDonald 04/15/19 0700Critical results verified and read back by Nurse? Y MEAN PLATELET VOLUME (test code = MPV) 12.8 fL 6.7-11.0 H IMMATURE GRANULOCYTE % (test code = IG%) 1.0 % 0.0-5.0 N NUCLEATED RBC % (test code = NRBC%) 0.0 % 0-0 N NEUTROPHIL # (test code = NT#) 3.78 K/mm3 1.8-7.7 N IMMATURE GRANULOCYTE # (test code = IG#) 0.05 x10 3/uL 0-0.03 H LYMPHOCYTE # (test code = LY#) 0.82 K/mm3 1.0-5.0 L MONOCYTE # (test code = MO#) 0.30 K/mm3 0-0.8 N EOSINOPHIL # (test code = EO#) 0.03 K/mm3 0.0-0.5 N BASOPHIL # (test code = BA#) 0.01 K/mm3 0.0-0.2 N NUCLEATED RBC # (test code = NRBC#) 0.00 K/mm3 0.0-0.1 N MANUAL DIFF REQUIRED (test code = MDIFF) YES STAIN ACCEPTABILITY (test code = STN ACCEPTABLE) TOTAL CELLS COUNTED (test code = TCC) #CELLS SEGMENTED NEUTROPHILS (test code = SEG) % 39-69 LYMPHOCYTE (test code = LYMPH) % 25-55 MONOCYTE (test code = MON) % 0-10 EOSINOPHIL (test code = EOS) % 0.0-5.0 CABOT RINGS (test code = CAB) MORPHOLOGY COMMENT (test code = MOC) PLATELET ESTIMATE (test code = PLTEST) PLATELET MORPHOLOGY (test code = PLTMORPH) CBC W/MANUAL [id number] 07:00:00* Test Item Value Reference Range Interpretation Comments WHITE BLOOD CELL (test code = WBC) 5.0 K/mm3 4.5-12.5 N RED BLOOD CELL (test code = RBC) 4.08 mill/mm3 3.7-5.2 N HEMOGLOBIN (test code = HGB) 12.1 gram/dL 11.5-15.5 N HEMATOCRIT (test code = HCT) 35.5 % 36.0-46.0 L MEAN CELL VOLUME (test code = MCV) 87.0 fL 80-98 N MEAN CELL HGB (test code = MCH) 29.7 picogram 27.0-33.0 N MEAN CELL HGB CONCETRATION (test code = MCHC) 34.1 gram/dL 33.0-36. 0 N RED CELL DISTRIBUTION WIDTH (test code = RDW) 14.7 % 11.6-16. 2 N RED CELL DISTRIBUTION WIDTH SD (test code = RDW-SD) 45.2 fL 37 .0-51.0 N PLATELET COUNT (test code = PLT) 35 K/mm3 150-450 LL Results called to [id number] by CHARLEE 04/15/19 0700Critical results verified and read back by Nurse? Y MEAN PLATELET VOLUME (test code = MPV) 12.8 fL 6.7-11.0 H IMMATURE GRANULOCYTE % (test code = IG%) 1.0 % 0.0-5.0 N NUCLEATED RBC % (test code = NRBC%) 0.0 % 0-0 N NEUTROPHIL # (test code = NT#) 3.78 K/mm3 1.8-7.7 N IMMATURE GRANULOCYTE # (test code = IG#) 0.05 x10 3/uL 0-0.03 H LYMPHOCYTE # (test code = LY#) 0.82 K/mm3 1.0-5.0 L MONOCYTE # (test code = MO#) 0.30 K/mm3 0-0.8 N EOSINOPHIL # (test code = EO#) 0.03 K/mm3 0.0-0.5 N BASOPHIL # (test code = BA#) 0.01 K/mm3 0.0-0.2 N NUCLEATED RBC # (test code = NRBC#) 0.00 K/mm3 0.0-0.1 N MANUAL DIFF REQUIRED (test code = MDIFF) YES STAIN ACCEPTABILITY (test code = STN ACCEPTABLE) TOTAL CELLS COUNTED (test code = TCC) #CELLS SEGMENTED NEUTROPHILS (test code = SEG) % 39-69 LYMPHOCYTE (test code = LYMPH) % 25-55 MONOCYTE (test code = MON) % 0-10 EOSINOPHIL (test code = EOS) % 0.0-5.0 MORPHOLOGY COMMENT (test code = MOC) PLATELET ESTIMATE (test code = PLTEST) PLATELET MORPHOLOGY (test code = PLTMORPH) CBC W/MANUAL [id number] 07:00:00* Test Item Value Reference Range Interpretation Comments WHITE BLOOD CELL (test code = WBC) 5.0 K/mm3 4.5-12.5 N RED BLOOD CELL (test code = RBC) 4.08 mill/mm3 3.7-5.2 N HEMOGLOBIN (test code = HGB) 12.1 gram/dL 11.5-15.5 N HEMATOCRIT (test code = HCT) 35.5 % 36.0-46.0 L MEAN CELL VOLUME (test code = MCV) 87.0 fL 80-98 N MEAN CELL HGB (test code = MCH) 29.7 picogram 27.0-33.0 N MEAN CELL HGB CONCETRATION (test code = MCHC) 34.1 gram/dL 33.0-36. 0 N RED CELL DISTRIBUTION WIDTH (test code = RDW) 14.7 % 11.6-16. 2 N RED CELL DISTRIBUTION WIDTH SD (test code = RDW-SD) 45.2 fL 37 .0-51.0 N PLATELET COUNT (test code = PLT) 35 K/mm3 150-450 LL Results called to [id number] by CHARLEE 04/15/19 0700Critical results verified and read back by Nurse? Y MEAN PLATELET VOLUME (test code = MPV) 12.8 fL 6.7-11.0 H IMMATURE GRANULOCYTE % (test code = IG%) 1.0 % 0.0-5.0 N NUCLEATED RBC % (test code = NRBC%) 0.0 % 0-0 N NEUTROPHIL # (test code = NT#) 3.78 K/mm3 1.8-7.7 N IMMATURE GRANULOCYTE # (test code = IG#) 0.05 x10 3/uL 0-0.03 H LYMPHOCYTE # (test code = LY#) 0.82 K/mm3 1.0-5.0 L MONOCYTE # (test code = MO#) 0.30 K/mm3 0-0.8 N EOSINOPHIL # (test code = EO#) 0.03 K/mm3 0.0-0.5 N BASOPHIL # (test code = BA#) 0.01 K/mm3 0.0-0.2 N NUCLEATED RBC # (test code = NRBC#) 0.00 K/mm3 0.0-0.1 N MANUAL DIFF REQUIRED (test code = MDIFF) YES STAIN ACCEPTABILITY (test code = STN ACCEPTABLE) TOTAL CELLS COUNTED (test code = TCC) #CELLS SEGMENTED NEUTROPHILS (test code = SEG) % 39-69 LYMPHOCYTE (test code = LYMPH) % 25-55 MONOCYTE (test code = MON) % 0-10 MORPHOLOGY COMMENT (test code = MOC) PLATELET ESTIMATE (test code = PLTEST) PLATELET MORPHOLOGY (test code = PLTMORPH) CBC W/MANUAL [id number] 07:00:00* Test Item Value Reference Range Interpretation Comments WHITE BLOOD CELL (test code = WBC) 5.0 K/mm3 4.5-12.5 N RED BLOOD CELL (test code = RBC) 4.08 mill/mm3 3.7-5.2 N HEMOGLOBIN (test code = HGB) 12.1 gram/dL 11.5-15.5 N HEMATOCRIT (test code = HCT) 35.5 % 36.0-46.0 L MEAN CELL VOLUME (test code = MCV) 87.0 fL 80-98 N MEAN CELL HGB (test code = MCH) 29.7 picogram 27.0-33.0 N MEAN CELL HGB CONCETRATION (test code = MCHC) 34.1 gram/dL 33.0-36. 0 N RED CELL DISTRIBUTION WIDTH (test code = RDW) 14.7 % 11.6-16. 2 N RED CELL DISTRIBUTION WIDTH SD (test code = RDW-SD) 45.2 fL 37 .0-51.0 N PLATELET COUNT (test code = PLT) 35 K/mm3 150-450 LL Results called to [id number] by V.LAB.FARIDEH 04/15/19 0700Critical results verified and read back by Nurse? Y MEAN PLATELET VOLUME (test code = MPV) 12.8 fL 6.7-11.0 H IMMATURE GRANULOCYTE % (test code = IG%) 1.0 % 0.0-5.0 N NUCLEATED RBC % (test code = NRBC%) 0.0 % 0-0 N NEUTROPHIL # (test code = NT#) 3.78 K/mm3 1.8-7.7 N IMMATURE GRANULOCYTE # (test code = IG#) 0.05 x10 3/uL 0-0.03 H LYMPHOCYTE # (test code = LY#) 0.82 K/mm3 1.0-5.0 L MONOCYTE # (test code = MO#) 0.30 K/mm3 0-0.8 N EOSINOPHIL # (test code = EO#) 0.03 K/mm3 0.0-0.5 N BASOPHIL # (test code = BA#) 0.01 K/mm3 0.0-0.2 N NUCLEATED RBC # (test code = NRBC#) 0.00 K/mm3 0.0-0.1 N MANUAL DIFF REQUIRED (test code = MDIFF) YES STAIN ACCEPTABILITY (test code = STN ACCEPTABLE) TOTAL CELLS COUNTED (test code = TCC) #CELLS SEGMENTED NEUTROPHILS (test code = SEG) % 39-69 LYMPHOCYTE (test code = LYMPH) % 25-55 MONOCYTE (test code = MON) % 0-10 EOSINOPHIL (test code = EOS) % 0.0-5.0 CABOT RINGS (test code = CAB) MORPHOLOGY COMMENT (test code = MOC) PLATELET ESTIMATE (test code = PLTEST) PLATELET MORPHOLOGY (test code = PLTMORPH) [id number] 20:35:00* Test Item Value Reference Range Interpretation Comments GLUBED (test code = GLUBED) 204 mg/dL 74-106 H Performed by certified shovel log loader operator at [facility] BONE [id number] 17:28:00 RUN DATE: 04/14/19 [facility] PAGE 1 RUN TIME: 1729 Specimen Inqui ry RUN USER: INTERFACE PATIENT: WANDA VILLASENOR V ACCT #: V [id number] LOC: [facility] U #: [id number] AGE/SX: 68/F ROOM: [facility] RE04/11/19REG DR: Artem Esposito MD : 48 BED: B DIS: STATUS: ADM IN TLOC: SPEC #: [id number] RECD: 04/13/19-141 STATUS: SOUT REQ #: [id number] ISRA[place]: 04/13/19- SUBM DR: Artem Esposito MD ENTERED: 04/13/19 SP TYPE: BON MARROW OTHR DR: Jaylan Greenberg MD, Kuldip Kumar MD Rasheed, Amir A MD Romero, Alberto J MDORDERED: GROSS COPIES TO: Artem Esposito MD [address] [place] [address] Jaylan Greenberg MD [address] [place] [address] Junaid Fitzpatrick MD [address] [place] [address] [place] [address] [facility] [address] [place] [address] Bin Stovall MD [address] [id number] PROCEDURES: GROSS (04/14) TISSUES: BONE MARROW, NOS - BX, CLOT, SMEAR CLINICAL HISTORY COLLECTION DATE: 04/13/19 THROMBOCYTOPENIA, ANEMIA CONTINUED ON NEXT PAGE RUN DATE: 04/14/19 [facility] PAGE 2 RUN TI ME: 1729 Specimen Inquiry RUN USER : INTERFACE --SPEC #: [id number] PATIENT: AGUSTÍN VILLASENORYMLES Canseco #[id number] (Continued) COMMENT The iron stains performed on t he clot sections and aspirate smear are not contributory due to the lack of mar row elements. The clot and aspirate smears are diluted with peripheral blood. More immature granulocytic forms are present in the aspirate smears than are n ormally seen in the periphery. These are considered to be marrow elements but there are insufficient numbers of these elements to perform an accurate differen tial cell count. FINAL DIAGNOSIS Bone marrow aspiration and core bio psy: MATERIAL DILUTED WITH PERIPHERAL BLOOD INSUFFICIENT FOR DEFINITIVE HISTOLOGIC EVALUATION PERIPHERAL SMEAR, LEUkOPENIA AND THROMBOCYT OPENIA DIFFERENTIAL CELL COUNT WITH SLIGHT PREDOMINANCE OF LYMPHOCYTES NO BLASTS IDENTIFIED [facility]/ D 42781, [address], [address] FLOW CYTOMETRY Flow Cytometry Analysis Accession/Case No: [id number] Diagnosis:No diagnostic im munophenotypic abnormalities detected, however the bone marrow sampleappears to be hemodilute. Comments:No immunophenotypic evidence of a lymphoproliferative di sorder, acute leukemia, increase inblasts, or plasma cell neoplasm is identified . However, the paucity of immature, precursorpopulations and predominance of ma ture granulocytes, suggests significant hemodilutionof the bone marrow specimen. Myeloproliferative neoplasms and myelodysplastic syndromes maynot show antigeni c abnormalities on myeloid cells and cannot be ruled out by flowcytometry. Pleas e correlate the result with CBC data, comprehensive bone marrowexamination, incl uding study of the core biopsy, other pertinent laboratory data andclinical info rmation. Flow Differential (%) and Population Analysis:Lymphocytes: 22.7%T-cells (78% of lymphoid cells) show a CD4/CD8 ratio of about 2.29 without overt phenot ypicabnormality.NK-cells (5% of lymphoid cells) are unremarkable. Mature B-cells (12% of lymphoid cells)are polyclonal (kappa:lambda 1.1). CONTINUED ON NEXT PAGE RUN DATE: 04/14/19 [facility] PAGE 3 RUN TIME: 1729 Specimen Inquiry RUN USER: INTERFAC E SPEC #: [id number] PATIENT: WANDA VILLASENOR V #[id number] (Contin ued) FLOW CYTOMETRY (Continued) Monocytes: 2.7%Mo nocytes show phenotypic evidence of maturation without dysmaturation. Granulocyt es: 43.5%Granulocytes show phenotypic evidence of maturation without dysmaturati on. Thepreponderance of mature myeloid cells based on CD10 expression and paucit y of immatureforms raises the possibility of significant hemodilution of the asp irate sample. CD45 Dim: 0.3%CD34+ events (0.0% of total cells) are not increased . Precursor B-cells (0% of totalcells). The scarcity of immature, precursor cell populations also suggests hemodilution ofthe bone marrow specimen. CD45 Ne .8%Erythroids and cell debris, unremarkable. Plasma Cells: 0.0% CD34+: 0.0% Андрей ers Performed:CD2, CD3, CD4, CD5, CD7, CD8, CD10, CD11c, CD13, CD14, CD16, CD19, CD20, CD23, CD33, CD34,CD38, CD45, CD56, CD64, CD117, HLA-DR, [place], Lambda (24 Markers) CPT Codes:84741e7, 56597b69, 11624y9 MACROSCOPIC The spec imen consists of bone marrow aspirate smears to be stained, material received for flow and cytogenetics studies, and a core biopsy and a clot specimen recei elida in formalin in two separate containers. These are both labeled with the p atient's name. The clot specimen measures 1.8 x 1.5 cm. It is submitted for microscopic evaluation in two cassettes labeled (clot 1A and clot 1B). H E and iron stains will be prepared. The bone marrow biopsy specimen contains a sma ll amount of clot material measuring 0.25 cm. It is submitted for microscopic evaluation in a single cassette. GROSS PERFORMED AT [facility] [address] [facility] [address] (P)[phone] CONTINUED ON NE XT PAGE RUN DATE: 04/14/19 [facility] PAGE 4 RUN TIME: 1729 [facility] RUN USER: INTERFACE SPEC #: [id number] PATIENT: WANDA BOONE Ajith #[id number] (Continued) M ICROSCOPIC All of the stains, including any controls performed, stain appropr iately. MICROSCOPIC PERFORMED AT [facility] [address] [facility], [place] [id number] (p)[phone] PERFORMING SITE [facility] [address] [facility], [place] [address] Signed SIGNATURE ON FILE Darion Webster MD 04/14/19 1728 END OF REPORT GLUBED 2019-04-14 16:09:00* Test Item Value Reference Range Interpretation Comments GLUBED (test code = GLUBED) 252 mg/dL 74-106 H Performed by certified shovel log loader operator at [facility] [id number] 12:17:00* Test Item Value Reference Range Interpretation Comments GLUBED (test code = GLUBED) 158 mg/dL 74-106 H Performed by certified shovel log loader operator at [facility] CBC W/MANUAL [id number] 08:28:00* Test Item Value Reference Range Interpretation Comments WHITE BLOOD CELL (test code = WBC) 1.4 K/mm3 4.5-12.5 L Has "Path Review" been performed on patient's currentadmission?If yes, please insert path review specimen here NO If not, please order "Path Review" for the followingcriteria:1/ WBC count over 40,000/mm3 or below 2,000/mm32/ Platelet counts over 1,000,000/mm3, or below 10,000/mm3, or with abnormal morphology.3/ Abnormal red cell morphology or inclusions which are severe (> 3+) , widespread, or difficult to classify.4/ Abnormal white blood cell morphology: Blasts present in peripheral blood of any patient as a new finding. Abnormal cells suspected of being blasts. Patients with large numbers of immature cells in peripheral blood. Unusual cells or cells not easily classified in peripheral blood.5/ Any smear in which the technologist is uncertain of the classification or the disease.RESULT VERIFIED BY REPEAT ANALYSIS RED BLOOD CELL (test code = RBC) 3.57 mill/mm3 3.7-5.2 L HEMOGLOBIN (test code = HGB) 12.0 gram/dL 11.5-15.5 N HEMATOCRIT (test code = HCT) 32.0 % 36.0-46.0 L MEAN CELL VOLUME (test code = MCV) 89.6 fL 80-98 N MEAN CELL HGB (test code = MCH) 33.6 picogram 27.0-33.0 H MEAN CELL HGB CONCETRATION (test code = MCHC) 37.5 gram/dL 33.0-36. 0 H RED CELL DISTRIBUTION WIDTH (test code = RDW) 14.6 % 11.6-16. 2 N RED CELL DISTRIBUTION WIDTH SD (test code = RDW-SD) 45.3 fL 37 .0-51.0 N PLATELET COUNT (test code = PLT) 32 K/mm3 150-450 LL Results called to [id number] by [facility] 04/14/19 0653Critical results verified and read back by Nurse? Y MEAN PLATELET VOLUME (test code = MPV) 11.3 fL 6.7-11.0 H IMMATURE GRANULOCYTE % (test code = IG%) 0.0 % 0.0-5.0 N NUCLEATED RBC % (test code = NRBC%) 0.0 % 0-0 N NEUTROPHIL # (test code = NT#) 0.90 K/mm3 1.8-7.7 L IMMATURE GRANULOCYTE # (test code = IG#) 0.00 x10 3/uL 0-0.03 N LYMPHOCYTE # (test code = LY#) 0.39 K/mm3 1.0-5.0 L MONOCYTE # (test code = MO#) 0.12 K/mm3 0-0.8 N EOSINOPHIL # (test code = EO#) 0.00 K/mm3 0.0-0.5 N BASOPHIL # (test code = BA#) 0.00 K/mm3 0.0-0.2 N NUCLEATED RBC # (test code = NRBC#) 0.00 K/mm3 0.0-0.1 N MANUAL DIFF REQUIRED (test code = MDIFF) YES STAIN ACCEPTABILITY (test code = STN ACCEPTABLE) STAIN ACCEPTABLE TOTAL CELLS COUNTED (test code = TCC) 114 #CELLS SEGMENTED NEUTROPHILS (test code = SEG) 73.7 % 39-69 H BAND NEUTROPHIL (test code = BAND) 0 % 0-10 N LYMPHOCYTE (test code = LYMPH) 16.7 % 25-55 L REACTIVE LYMPH (test code = RELYMPH) 5.2 % MONOCYTE (test code = MON) 4.4 % 0-10 N EOSINOPHIL (test code = EOS) 0 % 0.0-5.0 N BASOPHIL (test code = BASO) 0 % 0-1.0 N METAMYELOCYTE (test code = META) 0 % 0-0 N MYELOCYTE (test code = MYELO) 0 % 0.0-0.0 N PROMYELOCYTE (test code = PROM) 0 % 0-0 N HYPOCHROMIA (test code = HYPO) 1+ MORPHOLOGY COMMENT (test code = MOC) NORMAL PLATELET ESTIMATE (test code = PLTEST) DECREASED PLATELET MORPHOLOGY (test code = PLTMORPH) NORMAL IMMATURE FORMS (test code = IMMAT) 0 % 0-0 N [id number] 08:13:00* Test Item Value Reference Range Interpretation Comments GLUBED (test code = GLUBED) 281 mg/dL 74-106 H Performed by certified shovel log loader operator at [facility] COMPREHENSIVE METABOLIC [id number] 07:15:00* Test Item Value Reference Range Interpretation Comments SODIUM (test code = NA) 137 mmol/L 136-145 N POTASSIUM (test code = K) 4.5 mmol/L 3.5-5.1 N CHLORIDE (test code = CL) 107.0 mmol/L 98-107 N CARBON DIOXIDE (test code = CO2) 26.0 mmol/L 21-32 N ANION GAP (test code = GAP) 8.5 10-20 L GLUCOSE (test code = GLU) 293 mg/dL 74-106 H BLOOD UREA NITROGEN (test code = BUN) 16 mg/dL 7-18 N GLOMERULAR FILTRATION RATE (test code = GFR) > 60 mL/min >=60 Estimated GFR by using Modified MDRD formula.Chronic kidney disease is defined as either kidney damageor GFR <60 mL/min/1.73 m2 for >3 months. CREATININE (test code = CREAT) 0.80 mg/dL 0.55-1.02 N Note change in reference range due to change in reagent. BUN/CREATININE RATIO (test code = BUN/CREA) 20.0 10-20 N TOTAL PROTEIN (test code = PROT) 7.1 gram/dL 6.4-8.2 N ALBUMIN (test code = ALB) 2.3 g/dL 3.4-5.0 L GLOBULIN (test code = GLOB) 4.8 gram/dL 2.7-4.2 H ALBUMIN/GLOBULIN RATIO (test code = A/G) 0.5 0.75-1.50 L CALCIUM (test code = CA) 8.1 mg/dL 8.5-10.1 L BILIRUBIN TOTAL (test code = BILT) 0.50 mg/dL 0.0-1.0 N SGOT/AST (test code = AST) 54 IUnit/L 15-37 H SGPT/ALT (test code = ALT) 58 IUnit/L 12-78 N ALKALINE PHOSPHATASE TOTAL (test code = ALKP) 122 IUnit/L 45-117 H Note change in reference range due to change in reagent. COMPREHENSIVE METABOLIC [id number] 07:04:00* Test Item Value Reference Range Interpretation Comments SODIUM (test code = NA) 137 mmol/L 136-145 N POTASSIUM (test code = K) 4.5 mmol/L 3.5-5.1 N CHLORIDE (test code = CL) 107.0 mmol/L 98-107 N CARBON DIOXIDE (test code = CO2) mmol/L 21-32 ANION GAP (test code = GAP) 10-20 GLUCOSE (test code = GLU) mg/dL 74-106 BLOOD UREA NITROGEN (test code = BUN) mg/dL 7-18 GLOMERULAR FILTRATION RATE (test code = GFR) mL/min >=60 CREATININE (test code = CREAT) mg/dL 0.55-1.02 BUN/CREATININE RATIO (test code = BUN/CREA) 10-20 TOTAL PROTEIN (test code = PROT) gram/dL 6.4-8.2 ALBUMIN (test code = ALB) g/dL 3.4-5.0 GLOBULIN (test code = GLOB) gram/dL 2.7-4.2 ALBUMIN/GLOBULIN RATIO (test code = A/G) 0.75-1.50 CALCIUM (test code = CA) mg/dL 8.5-10.1 BILIRUBIN TOTAL (test code = BILT) mg/dL 0.0-1.0 SGOT/AST (test code = AST) IUnit/L 15-37 SGPT/ALT (test code = ALT) IUnit/L 12-78 ALKALINE PHOSPHATASE TOTAL (test code = ALKP) IUnit/L 45-117 CBC W/MANUAL [id number] 06:54:00* Test Item Value Reference Range Interpretation Comments WHITE BLOOD CELL (test code = WBC) 1.4 K/mm3 4.5-12.5 L Has "Path Review" been performed on patient's currentadmission?If yes, please insert path review specimen here NO If not, please order "Path Review" for the followingcriteria:1/ WBC count over 40,000/mm3 or below 2,000/mm32/ Platelet counts over 1,000,000/mm3, or below 10,000/mm3, or with abnormal morphology.3/ Abnormal red cell morphology or inclusions which are severe (> 3+) , widespread, or difficult to classify.4/ Abnormal white blood cell morphology: Blasts present in peripheral blood of any patient as a new finding. Abnormal cells suspected of being blasts. Patients with large numbers of immature cells in peripheral blood. Unusual cells or cells not easily classified in peripheral blood.5/ Any smear in which the technologist is uncertain of the classification or the disease.RESULT VERIFIED BY REPEAT ANALYSIS RED BLOOD CELL (test code = RBC) 3.57 mill/mm3 3.7-5.2 L HEMOGLOBIN (test code = HGB) 12.0 gram/dL 11.5-15.5 N HEMATOCRIT (test code = HCT) 32.0 % 36.0-46.0 L MEAN CELL VOLUME (test code = MCV) 89.6 fL 80-98 N MEAN CELL HGB (test code = MCH) 33.6 picogram 27.0-33.0 H MEAN CELL HGB CONCETRATION (test code = MCHC) 37.5 gram/dL 33.0-36. 0 H RED CELL DISTRIBUTION WIDTH (test code = RDW) 14.6 % 11.6-16. 2 N RED CELL DISTRIBUTION WIDTH SD (test code = RDW-SD) 45.3 fL 37 .0-51.0 N PLATELET COUNT (test code = PLT) 32 K/mm3 150-450 LL Results called [facility] [id number] [facility]/14/[facility] 0653Critical results verified and read back by Nurse? Y MEAN PLATELET VOLUME (test code = MPV) 11.3 fL 6.7-11.0 H IMMATURE GRANULOCYTE % (test code = IG%) 0.0 % 0.0-5.0 N NUCLEATED RBC % (test code = NRBC%) 0.0 % 0-0 N NEUTROPHIL # (test code = NT#) 0.90 K/mm3 1.8-7.7 L IMMATURE GRANULOCYTE # (test code = IG#) 0.00 x10 3/uL 0-0.03 N LYMPHOCYTE # (test code = LY#) 0.39 K/mm3 1.0-5.0 L MONOCYTE # (test code = MO#) 0.12 K/mm3 0-0.8 N EOSINOPHIL # (test code = EO#) 0.00 K/mm3 0.0-0.5 N BASOPHIL # (test code = BA#) 0.00 K/mm3 0.0-0.2 N NUCLEATED RBC # (test code = NRBC#) 0.00 K/mm3 0.0-0.1 N MANUAL DIFF REQUIRED (test code = MDIFF) YES STAIN ACCEPTABILITY (test code = STN ACCEPTABLE) TOTAL CELLS COUNTED (test code = TCC) #CELLS SEGMENTED NEUTROPHILS (test code = SEG) % 39-69 LYMPHOCYTE (test code = LYMPH) % 25-55 MONOCYTE (test code = MON) % 0-10 EOSINOPHIL (test code = EOS) % 0.0-5.0 CABOT RINGS (test code = CAB) MORPHOLOGY COMMENT (test code = MOC) PLATELET ESTIMATE (test code = PLTEST) PLATELET MORPHOLOGY (test code = PLTMORPH) CBC W/MANUAL [id number] 06:54:00* Test Item Value Reference Range Interpretation Comments WHITE BLOOD CELL (test code = WBC) 1.4 K/mm3 4.5-12.5 L Has "Path Review" been performed on patient's currentadmission?If yes, please insert path review specimen here NO If not, please order "Path Review" for the followingcriteria:1/ WBC count over 40,000/mm3 or below 2,000/mm32/ Platelet counts over 1,000,000/mm3, or below 10,000/mm3, or with abnormal morphology.3/ Abnormal red cell morphology or inclusions which are severe (> 3+) , widespread, or difficult to classify.4/ Abnormal white blood cell morphology: Blasts present in peripheral blood of any patient as a new finding. Abnormal cells suspected of being blasts. Patients with large numbers of immature cells in peripheral blood. Unusual cells or cells not easily classified in peripheral blood.5/ Any smear in which the technologist is uncertain of the classification or the disease.RESULT VERIFIED BY REPEAT ANALYSIS RED BLOOD CELL (test code = RBC) 3.57 mill/mm3 3.7-5.2 L HEMOGLOBIN (test code = HGB) 12.0 gram/dL 11.5-15.5 N HEMATOCRIT (test code = HCT) 32.0 % 36.0-46.0 L MEAN CELL VOLUME (test code = MCV) 89.6 fL 80-98 N MEAN CELL HGB (test code = MCH) 33.6 picogram 27.0-33.0 H MEAN CELL HGB CONCETRATION (test code = MCHC) 37.5 gram/dL 33.0-36. 0 H RED CELL DISTRIBUTION WIDTH (test code = RDW) 14.6 % 11.6-16. 2 N RED CELL DISTRIBUTION WIDTH SD (test code = RDW-SD) 45.3 fL 37 .0-51.0 N PLATELET COUNT (test code = PLT) 32 K/mm3 150-450 LL Results called to [id number] by [facility] 04/14/19 0653Critical results verified and read back by Nurse? Y MEAN PLATELET VOLUME (test code = MPV) 11.3 fL 6.7-11.0 H IMMATURE GRANULOCYTE % (test code = IG%) 0.0 % 0.0-5.0 N NUCLEATED RBC % (test code = NRBC%) 0.0 % 0-0 N NEUTROPHIL # (test code = NT#) 0.90 K/mm3 1.8-7.7 L IMMATURE GRANULOCYTE # (test code = IG#) 0.00 x10 3/uL 0-0.03 N LYMPHOCYTE # (test code = LY#) 0.39 K/mm3 1.0-5.0 L MONOCYTE # (test code = MO#) 0.12 K/mm3 0-0.8 N EOSINOPHIL # (test code = EO#) 0.00 K/mm3 0.0-0.5 N BASOPHIL # (test code = BA#) 0.00 K/mm3 0.0-0.2 N NUCLEATED RBC # (test code = NRBC#) 0.00 K/mm3 0.0-0.1 N MANUAL DIFF REQUIRED (test code = MDIFF) YES STAIN ACCEPTABILITY (test code = STN ACCEPTABLE) TOTAL CELLS COUNTED (test code = TCC) #CELLS SEGMENTED NEUTROPHILS (test code = SEG) % 39-69 LYMPHOCYTE (test code = LYMPH) % 25-55 MONOCYTE (test code = MON) % 0-10 EOSINOPHIL (test code = EOS) % 0.0-5.0 MORPHOLOGY COMMENT (test code = MOC) PLATELET ESTIMATE (test code = PLTEST) PLATELET MORPHOLOGY (test code = PLTMORPH) CBC W/MANUAL [id number] 06:54:00* Test Item Value Reference Range Interpretation Comments WHITE BLOOD CELL (test code = WBC) 1.4 K/mm3 4.5-12.5 L Has "Path Review" been performed on patient's currentadmission?If yes, please insert path review specimen here NO If not, please order "Path Review" for the followingcriteria:1/ WBC count over 40,000/mm3 or below 2,000/mm32/ Platelet counts over 1,000,000/mm3, or below 10,000/mm3, or with abnormal morphology.3/ Abnormal red cell morphology or inclusions which are severe (> 3+) , widespread, or difficult to classify.4/ Abnormal white blood cell morphology: Blasts present in peripheral blood of any patient as a new finding. Abnormal cells suspected of being blasts. Patients with large numbers of immature cells in peripheral blood. Unusual cells or cells not easily classified in peripheral blood.5/ Any smear in which the technologist is uncertain of the classification or the disease.RESULT VERIFIED BY REPEAT ANALYSIS RED BLOOD CELL (test code = RBC) 3.57 mill/mm3 3.7-5.2 L HEMOGLOBIN (test code = HGB) 12.0 gram/dL 11.5-15.5 N HEMATOCRIT (test code = HCT) 32.0 % 36.0-46.0 L MEAN CELL VOLUME (test code = MCV) 89.6 fL 80-98 N MEAN CELL HGB (test code = MCH) 33.6 picogram 27.0-33.0 H MEAN CELL HGB CONCETRATION (test code = MCHC) 37.5 gram/dL 33.0-36. 0 H RED CELL DISTRIBUTION WIDTH (test code = RDW) 14.6 % 11.6-16. 2 N RED CELL DISTRIBUTION WIDTH SD (test code = RDW-SD) 45.3 fL 37 .0-51.0 N PLATELET COUNT (test code = PLT) 32 K/mm3 150-450 LL Results called to [id number] by [facility] 04/14/19 0653Critical results verified and read back by Nurse? Y MEAN PLATELET VOLUME (test code = MPV) 11.3 fL 6.7-11.0 H IMMATURE GRANULOCYTE % (test code = IG%) 0.0 % 0.0-5.0 N NUCLEATED RBC % (test code = NRBC%) 0.0 % 0-0 N NEUTROPHIL # (test code = NT#) 0.90 K/mm3 1.8-7.7 L IMMATURE GRANULOCYTE # (test code = IG#) 0.00 x10 3/uL 0-0.03 N LYMPHOCYTE # (test code = LY#) 0.39 K/mm3 1.0-5.0 L MONOCYTE # (test code = MO#) 0.12 K/mm3 0-0.8 N EOSINOPHIL # (test code = EO#) 0.00 K/mm3 0.0-0.5 N BASOPHIL # (test code = BA#) 0.00 K/mm3 0.0-0.2 N NUCLEATED RBC # (test code = NRBC#) 0.00 K/mm3 0.0-0.1 N MANUAL DIFF REQUIRED (test code = MDIFF) YES STAIN ACCEPTABILITY (test code = STN ACCEPTABLE) TOTAL CELLS COUNTED (test code = TCC) #CELLS SEGMENTED NEUTROPHILS (test code = SEG) % 39-69 LYMPHOCYTE (test code = LYMPH) % 25-55 MONOCYTE (test code = MON) % 0-10 MORPHOLOGY COMMENT (test code = MOC) PLATELET ESTIMATE (test code = PLTEST) PLATELET MORPHOLOGY (test code = PLTMORPH) CBC W/MANUAL [id number] 06:53:00* Test Item Value Reference Range Interpretation Comments WHITE BLOOD CELL (test code = WBC) 1.4 K/mm3 4.5-12.5 L Has "Path Review" been performed on patient's currentadmission?If yes, please insert path review specimen here NO If not, please order "Path Review" for the followingcriteria:1/ WBC count over 40,000/mm3 or below 2,000/mm32/ Platelet counts over 1,000,000/mm3, or below 10,000/mm3, or with abnormal morphology.3/ Abnormal red cell morphology or inclusions which are severe (> 3+) , widespread, or difficult to classify.4/ Abnormal white blood cell morphology: Blasts present in peripheral blood of any patient as a new finding. Abnormal cells suspected of being blasts. Patients with large numbers of immature cells in peripheral blood. Unusual cells or cells not easily classified in peripheral blood.5/ Any smear in which the technologist is uncertain of the classification or the disease.RESULT VERIFIED BY REPEAT ANALYSIS RED BLOOD CELL (test code = RBC) 3.57 mill/mm3 3.7-5.2 L HEMOGLOBIN (test code = HGB) 12.0 gram/dL 11.5-15.5 N HEMATOCRIT (test code = HCT) 32.0 % 36.0-46.0 L MEAN CELL VOLUME (test code = MCV) 89.6 fL 80-98 N MEAN CELL HGB (test code = MCH) 33.6 picogram 27.0-33.0 H MEAN CELL HGB CONCETRATION (test code = MCHC) 37.5 gram/dL 33.0-36. 0 H RED CELL DISTRIBUTION WIDTH (test code = RDW) 14.6 % 11.6-16. 2 N RED CELL DISTRIBUTION WIDTH SD (test code = RDW-SD) 45.3 fL 37 .0-51.0 N PLATELET COUNT (test code = PLT) 32 K/mm3 150-450 LL Results called to [id number] by [facility] 04/14/19 0653Critical results verified and read back by Nurse? Y MEAN PLATELET VOLUME (test code = MPV) 11.3 fL 6.7-11.0 H IMMATURE GRANULOCYTE % (test code = IG%) 0.0 % 0.0-5.0 N NUCLEATED RBC % (test code = NRBC%) 0.0 % 0-0 N NEUTROPHIL # (test code = NT#) 0.90 K/mm3 1.8-7.7 L IMMATURE GRANULOCYTE # (test code = IG#) 0.00 x10 3/uL 0-0.03 N LYMPHOCYTE # (test code = LY#) 0.39 K/mm3 1.0-5.0 L MONOCYTE # (test code = MO#) 0.12 K/mm3 0-0.8 N EOSINOPHIL # (test code = EO#) 0.00 K/mm3 0.0-0.5 N BASOPHIL # (test code = BA#) 0.00 K/mm3 0.0-0.2 N NUCLEATED RBC # (test code = NRBC#) 0.00 K/mm3 0.0-0.1 N MANUAL DIFF REQUIRED (test code = MDIFF) YES STAIN ACCEPTABILITY (test code = STN ACCEPTABLE) TOTAL CELLS COUNTED (test code = TCC) #CELLS SEGMENTED NEUTROPHILS (test code = SEG) % 39-69 LYMPHOCYTE (test code = LYMPH) % 25-55 MONOCYTE (test code = MON) % 0-10 EOSINOPHIL (test code = EOS) % 0.0-5.0 CABOT RINGS (test code = CAB) MORPHOLOGY COMMENT (test code = MOC) PLATELET ESTIMATE (test code = PLTEST) PLATELET MORPHOLOGY (test code = PLTMORPH) CBC W/MANUAL [id number] 06:53:00* Test Item Value Reference Range Interpretation Comments WHITE BLOOD CELL (test code = WBC) 1.4 K/mm3 4.5-12.5 L Has "Path Review" been performed on patient's currentadmission?If yes, please insert path review specimen here NO If not, please order "Path Review" for the followingcriteria:1/ WBC count over 40,000/mm3 or below 2,000/mm32/ Platelet counts over 1,000,000/mm3, or below 10,000/mm3, or with abnormal morphology.3/ Abnormal red cell morphology or inclusions which are severe (> 3+) , widespread, or difficult to classify.4/ Abnormal white blood cell morphology: Blasts present in peripheral blood of any patient as a new finding. Abnormal cells suspected of being blasts. Patients with large numbers of immature cells in peripheral blood. Unusual cells or cells not easily classified in peripheral blood.5/ Any smear in which the technologist is uncertain of the classification or the disease.RESULT VERIFIED BY REPEAT ANALYSIS RED BLOOD CELL (test code = RBC) 3.57 mill/mm3 3.7-5.2 L HEMOGLOBIN (test code = HGB) 12.0 gram/dL 11.5-15.5 N HEMATOCRIT (test code = HCT) 32.0 % 36.0-46.0 L MEAN CELL VOLUME (test code = MCV) 89.6 fL 80-98 N MEAN CELL HGB (test code = MCH) 33.6 picogram 27.0-33.0 H MEAN CELL HGB CONCETRATION (test code = MCHC) 37.5 gram/dL 33.0-36. 0 H RED CELL DISTRIBUTION WIDTH (test code = RDW) 14.6 % 11.6-16. 2 N RED CELL DISTRIBUTION WIDTH SD (test code = RDW-SD) 45.3 fL 37 .0-51.0 N PLATELET COUNT (test code = PLT) 32 K/mm3 150-450 LL Results called to [id number] by [facility] 04/14/19 0653Critical results verified and read back by Nurse? Y MEAN PLATELET VOLUME (test code = MPV) 11.3 fL 6.7-11.0 H IMMATURE GRANULOCYTE % (test code = IG%) 0.0 % 0.0-5.0 N NUCLEATED RBC % (test code = NRBC%) 0.0 % 0-0 N NEUTROPHIL # (test code = NT#) 0.90 K/mm3 1.8-7.7 L IMMATURE GRANULOCYTE # (test code = IG#) 0.00 x10 3/uL 0-0.03 N LYMPHOCYTE # (test code = LY#) 0.39 K/mm3 1.0-5.0 L MONOCYTE # (test code = MO#) 0.12 K/mm3 0-0.8 N EOSINOPHIL # (test code = EO#) 0.00 K/mm3 0.0-0.5 N BASOPHIL # (test code = BA#) 0.00 K/mm3 0.0-0.2 N NUCLEATED RBC # (test code = NRBC#) 0.00 K/mm3 0.0-0.1 N MANUAL DIFF REQUIRED (test code = MDIFF) YES STAIN ACCEPTABILITY (test code = STN ACCEPTABLE) TOTAL CELLS COUNTED (test code = TCC) #CELLS SEGMENTED NEUTROPHILS (test code = SEG) % 39-69 LYMPHOCYTE (test code = LYMPH) % 25-55 MONOCYTE (test code = MON) % 0-10 EOSINOPHIL (test code = EOS) % 0.0-5.0 CABOT RINGS (test code = CAB) MORPHOLOGY COMMENT (test code = MOC) PLATELET ESTIMATE (test code = PLTEST) PLATELET MORPHOLOGY (test code = PLTMORPH) [id number] 20:38:00* Test Item Value Reference Range Interpretation Comments GLUBED (test code = GLUBED) 412 mg/dL 74-106 H Performed by certified shovel log loader operator at [facility] [id number] 16:40:00* Test Item Value Reference Range Interpretation Comments GLUBED (test code = GLUBED) 107 mg/dL 74-106 H Performed by certified shovel log loader operator at [facility] - XR FLUORO [id number] 15:23:00 Name: WANDA VILLASENOR [facility] : 1950 Age/S: 68 / F [address] Unit #: [id number] Loc: [place] [address] Phys: Artem Esposito MD Acct: [id number] Dis Date: Status: ADM IN PHONE #: [phone] Exam Date: 04/13/2019 1330 FAX #: [phone] Reason: EXAMS: CPT CODE: [id number] XR FLUORO NDL [id number] Fluoro Time: 490 DAP (Gy m2): 6.530 Air Kerma (mGy): 94 REASON FOR EXAM: Thrombocytopenia EXAM ORDER DATE: 04/13/2019 12:48 PM Attending MMineDMine:Artem Esposito MD Location:[facility] PROCEDURE: Fluoroscopic guided bone marrow biopsy with General anesthesia Anesthesia: General anesthesia Anesthesiologist: Dr. Hamilton FINDINGS: After informed consent was obtained, the patient was brought to special procedures and placed supine on the table. The right anterior pelvic wall was prepped and draped in the usual fashion. All elements of maximal sterile barrier technique were followed. Under fluoroscopic guidance, bone marrow guiding needle was advanced into the right anterior iliac crest. Bone marrow aspirates were obtained. Using 18-gauge needle, a bone marrow core was also obtained. The needle was removed and hemostasis obtained by manual compression. MEDICATIONS: 1 g of Ancef COMPLICATIONS: None. Blood Loss: less than 5cc Fluoroscopic time:490 sec Fluoroscopic dose:64 mGy Number of images obtained: 2 IMPRESSION: Technically successful bone marrow biopsy at 1523 Reported and signed by: Juancarlos Mcpherson M.D. CC: Artem Esposito MD; Bin Stovall MD Technologist: Iliana BUSH(R) Trnscb Date/Time: 04/13/2019 (1523) t.VTL Orig Print D/T: S: 04/13/2019 (1526) PAGE 1 Signed Report ASPIRATION BONE [id number] 13:30:00* Test Item Value Reference Range Interpretation Comments ASPIRATION BONE MARROW (test code = ASPBM) SEE SEPARATE REPORT Submitted to Pathology lab:Number of Bone Marrow Stained Slides: 2Number of Bone Marrow Unstained Slides: 4Cell Clot: IN FORMALIN BOTTLE Touch-Prep Slide(s) (from Bone Chip): 2 (1 stained; 1 unstained)Bone chip in formalin 1 Peripheral CBC reportPeripheral slides (1 stained & 1 unstained) 2 green hep tubes for flow & chrom [id number] 11:48:00* Test Item Value Reference Range Interpretation Comments GLUBED (test code = GLUBED) 116 mg/dL 74-106 H Performed by certified shovel log loader operator at [facility] [id number] 08:03:00* Test Item Value Reference Range Interpretation Comments GLUBED (test code = GLUBED) 121 mg/dL 74-106 H Performed by certified shovel log loader operator at [facility] CBC W/MANUAL [id number] 03:56:00* Test Item Value Reference Range Interpretation Comments WHITE BLOOD CELL (test code = WBC) 1.4 K/mm3 4.5-12.5 L RESULT VERIFIED BY REPEAT ANALYSISHas "Path Review" been performed on patient's currentadmission?YESIf yes, please insert path review specimen here [id number];H55If not, please order "Path Review" for the followingcriteria:1/ WBC count over 40,000/mm3 or below 2,000/mm32/ Platelet counts over 1,000,000/mm3, or below 10,000/mm3, or with abnormal morphology.3/ Abnormal red cell morphology or inclusions which are severe (> 3+) , widespread, or difficult to classify.4/ Abnormal white blood cell morphology: Blasts present in peripheral blood of any patient as a new finding. Abnormal cells suspected of being blasts. Patients with large numbers of immature cells in peripheral blood. Unusual cells or cells not easily classified in peripheral blood.5/ Any smear in which the technologist is uncertain of the classification or the disease. RED BLOOD CELL (test code = RBC) 3.88 mill/mm3 3.7-5.2 N HEMOGLOBIN (test code = HGB) 11.6 gram/dL 11.5-15.5 N HEMATOCRIT (test code = HCT) 34.3 % 36.0-46.0 L MEAN CELL VOLUME (test code = MCV) 88.4 fL 80-98 N MEAN CELL HGB (test code = MCH) 29.9 picogram 27.0-33.0 N MEAN CELL HGB CONCETRATION (test code = MCHC) 33.8 gram/dL 33.0-36. 0 N RED CELL DISTRIBUTION WIDTH (test code = RDW) 14.8 % 11.6-16. 2 N RED CELL DISTRIBUTION WIDTH SD (test code = RDW-SD) 46.0 fL 37 .0-51.0 N PLATELET COUNT (test code = PLT) 40 K/mm3 150-450 LL Results called to [id number] by [email or web address] 04/13/19 0322Critical results verified and read back by Nurse? YES MEAN PLATELET VOLUME (test code = MPV) 12.3 fL 6.7-11.0 H IMMATURE GRANULOCYTE % (test code = IG%) 0.0 % 0.0-5.0 N NUCLEATED RBC % (test code = NRBC%) 0.0 % 0-0 N NEUTROPHIL # (test code = NT#) 0.54 K/mm3 1.8-7.7 L IMMATURE GRANULOCYTE # (test code = IG#) 0.00 x10 3/uL 0-0.03 N LYMPHOCYTE # (test code = LY#) 0.68 K/mm3 1.0-5.0 L MONOCYTE # (test code = MO#) 0.15 K/mm3 0-0.8 N EOSINOPHIL # (test code = EO#) 0.03 K/mm3 0.0-0.5 N BASOPHIL # (test code = BA#) 0.00 K/mm3 0.0-0.2 N NUCLEATED RBC # (test code = NRBC#) 0.00 K/mm3 0.0-0.1 N MANUAL DIFF REQUIRED (test code = MDIFF) YES STAIN ACCEPTABILITY (test code = STN ACCEPTABLE) STAIN ACCEPTABLE TOTAL CELLS COUNTED (test code = TCC) 116 #CELLS SEGMENTED NEUTROPHILS (test code = SEG) 58.6 % 39-69 N BAND NEUTROPHIL (test code = BAND) 0.9 % 0-10 N LYMPHOCYTE (test code = LYMPH) 22.4 % 25-55 L REACTIVE LYMPH (test code = RELYMPH) 4.3 % MONOCYTE (test code = MON) 11.2 % 0-10 H EOSINOPHIL (test code = EOS) 2.6 % 0.0-5.0 N BASOPHIL (test code = BASO) 0 % 0-1.0 N METAMYELOCYTE (test code = META) 0 % 0-0 N MYELOCYTE (test code = MYELO) 0 % 0.0-0.0 N PROMYELOCYTE (test code = PROM) 0 % 0-0 N MORPHOLOGY COMMENT (test code = MOC) NORMAL PLATELET ESTIMATE (test code = PLTEST) DECREASED PLATELET MORPHOLOGY (test code = PLTMORPH) NORMAL IMMATURE FORMS (test code = IMMAT) 0 % 0-0 N COMPREHENSIVE METABOLIC [id number] 03:34:00* Test Item Value Reference Range Interpretation Comments SODIUM (test code = NA) 142 mmol/L 136-145 N POTASSIUM (test code = K) 3.8 mmol/L 3.5-5.1 N CHLORIDE (test code = CL) 109.0 mmol/L 98-107 H CARBON DIOXIDE (test code = CO2) 26.0 mmol/L 21-32 N ANION GAP (test code = GAP) 10.8 10-20 N GLUCOSE (test code = GLU) 164 mg/dL 74-106 H BLOOD UREA NITROGEN (test code = BUN) 18 mg/dL 7-18 N GLOMERULAR FILTRATION RATE (test code = GFR) > 60 mL/min >=60 Estimated GFR by using Modified MDRD formula.Chronic kidney disease is defined as either kidney damageor GFR <60 mL/min/1.73 m2 for >3 months. CREATININE (test code = CREAT) 0.70 mg/dL 0.55-1.02 N Note change in reference range due to change in reagent. BUN/CREATININE RATIO (test code = BUN/CREA) 25.7 10-20 H TOTAL PROTEIN (test code = PROT) 6.2 gram/dL 6.4-8.2 L ALBUMIN (test code = ALB) 2.3 g/dL 3.4-5.0 L GLOBULIN (test code = GLOB) 3.9 gram/dL 2.7-4.2 N ALBUMIN/GLOBULIN RATIO (test code = A/G) 0.6 0.75-1.50 L CALCIUM (test code = CA) 8.4 mg/dL 8.5-10.1 L BILIRUBIN TOTAL (test code = BILT) 0.60 mg/dL 0.0-1.0 N SGOT/AST (test code = AST) 45 IUnit/L 15-37 H SGPT/ALT (test code = ALT) 59 IUnit/L 12-78 N ALKALINE PHOSPHATASE TOTAL (test code = ALKP) 114 IUnit/L 45-117 N Note change in reference range due to change in reagent. PROTHROMBIN [id number] 03:29:00* Test Item Value Reference Range Interpretation Comments PROTHROMBIN TIME PATIENT (test code = PTP) 13.1 seconds 9.0-14.0 N INTERNATIONAL NORMAL RATIO (test code = INR) 1.1 0.8-1.2 N The therapeutic range for oral anticoagulant therapy formost indications is an international normalized ratio (INR)of between 2.0 and 3.0. The recommended therapeutic INRrange for various clinical situations is listed below: Clinical Situation INR range Pulmonary e mbolism treatment (2.0-3.0)Venous thrombosis treatmentVenous thrombosis prophylaxis (high risk surgery)Prevention of systemic embolism from: Acute myocardial infarction Valvular heart disease Atrial fibrillation Mechanical prosthetic heart valves (2.5-3.5) IS PATIENT ON ANTICOAGULANTS? YLIST ANTICOAGULANTS ASPIRINCOMMENTS TO PHLEBO TOMIST: NEED FOR SURGERY 04/13/19ROMBOPLASTIN TIME [id number] 03:29:00 * Test Item Value Reference Range Interpretation Comments THROMBOPLASTIN TIME PARTIAL (test code = PTT) 30.2 seconds 25.0-36. 5 N IS PATIENT ON ANTICOAGULANTS? YLIST ANTICOAGULANTS ASPIRINCOMMENTS TO PHLEBO TOMIST: NEED FOR SURGERY 04/13/19CBC W/MANUAL [id number] 03:25:00* Test Item Value Reference Range Interpretation Comments WHITE BLOOD CELL (test code = WBC) 1.4 K/mm3 4.5-12.5 L RESULT VERIFIED BY REPEAT ANALYSISHas "Path Review" been performed on patient's currentadmission?YESIf yes, please insert path review specimen here 0127;H55If not, please order "Path Review" for the followingcriteria:1/ WBC count over 40,000/mm3 or below 2,000/mm32/ Platelet counts over 1,000,000/mm3, or below 10,000/mm3, or with abnormal morphology.3/ Abnormal red cell morphology or inclusions which are severe (> 3+) , widespread, or difficult to classify.4/ Abnormal white blood cell morphology: Blasts present in peripheral blood of any patient as a new finding. Abnormal cells suspected of being blasts. Patients with large numbers of immature cells in peripheral blood. Unusual cells or cells not easily classified in peripheral blood.5/ Any smear in which the technologist is uncertain of the classification or the disease. RED BLOOD CELL (test code = RBC) 3.88 mill/mm3 3.7-5.2 N HEMOGLOBIN (test code = HGB) 11.6 gram/dL 11.5-15.5 N HEMATOCRIT (test code = HCT) 34.3 % 36.0-46.0 L MEAN CELL VOLUME (test code = MCV) 88.4 fL 80-98 N MEAN CELL HGB (test code = MCH) 29.9 picogram 27.0-33.0 N MEAN CELL HGB CONCETRATION (test code = MCHC) 33.8 gram/dL 33.0-36. 0 N RED CELL DISTRIBUTION WIDTH (test code = RDW) 14.8 % 11.6-16. 2 N RED CELL DISTRIBUTION WIDTH SD (test code = RDW-SD) 46.0 fL 37 .0-51.0 N PLATELET COUNT (test code = PLT) 40 K/mm3 150-450 LL Results called [place] [address] by EDD 04/13/19 0322Critical results verified and read back by Nurse? YES MEAN PLATELET VOLUME (test code = MPV) 12.3 fL 6.7-11.0 H IMMATURE GRANULOCYTE % (test code = IG%) 0.0 % 0.0-5.0 N NUCLEATED RBC % (test code = NRBC%) 0.0 % 0-0 N NEUTROPHIL # (test code = NT#) 0.54 K/mm3 1.8-7.7 L IMMATURE GRANULOCYTE # (test code = IG#) 0.00 x10 3/uL 0-0.03 N LYMPHOCYTE # (test code = LY#) 0.68 K/mm3 1.0-5.0 L MONOCYTE # (test code = MO#) 0.15 K/mm3 0-0.8 N EOSINOPHIL # (test code = EO#) 0.03 K/mm3 0.0-0.5 N BASOPHIL # (test code = BA#) 0.00 K/mm3 0.0-0.2 N NUCLEATED RBC # (test code = NRBC#) 0.00 K/mm3 0.0-0.1 N MANUAL DIFF REQUIRED (test code = MDIFF) YES STAIN ACCEPTABILITY (test code = STN ACCEPTABLE) TOTAL CELLS COUNTED (test code = TCC) #CELLS SEGMENTED NEUTROPHILS (test code = SEG) % 39-69 LYMPHOCYTE (test code = LYMPH) % 25-55 MONOCYTE (test code = MON) % 0-10 EOSINOPHIL (test code = EOS) % 0.0-5.0 CABOT RINGS (test code = CAB) MORPHOLOGY COMMENT (test code = MOC) PLATELET ESTIMATE (test code = PLTEST) PLATELET MORPHOLOGY (test code = PLTMORPH) CBC W/MANUAL [id number] 03:25:00* Test Item Value Reference Range Interpretation Comments WHITE BLOOD CELL (test code = WBC) 1.4 K/mm3 4.5-12.5 L RESULT VERIFIED BY REPEAT ANALYSISHas "Path Review" been performed on patient's currentadmission?YESIf yes, please insert path review specimen here 0127;H55If not, please order "Path Review" for the followingcriteria:1/ WBC count over 40,000/mm3 or below 2,000/mm32/ Platelet counts over 1,000,000/mm3, or below 10,000/mm3, or with abnormal morphology.3/ Abnormal red cell morphology or inclusions which are severe (> 3+) , widespread, or difficult to classify.4/ Abnormal white blood cell morphology: Blasts present in peripheral blood of any patient as a new finding. Abnormal cells suspected of being blasts. Patients with large numbers of immature cells in peripheral blood. Unusual cells or cells not easily classified in peripheral blood.5/ Any smear in which the technologist is uncertain of the classification or the disease. RED BLOOD CELL (test code = RBC) 3.88 mill/mm3 3.7-5.2 N HEMOGLOBIN (test code = HGB) 11.6 gram/dL 11.5-15.5 N HEMATOCRIT (test code = HCT) 34.3 % 36.0-46.0 L MEAN CELL VOLUME (test code = MCV) 88.4 fL 80-98 N MEAN CELL HGB (test code = MCH) 29.9 picogram 27.0-33.0 N MEAN CELL HGB CONCETRATION (test code = MCHC) 33.8 gram/dL 33.0-36. 0 N RED CELL DISTRIBUTION WIDTH (test code = RDW) 14.8 % 11.6-16. 2 N RED CELL DISTRIBUTION WIDTH SD (test code = RDW-SD) 46.0 fL 37 .0-51.0 N PLATELET COUNT (test code = PLT) 40 K/mm3 150-450 LL Results called to [place] [address] by [email or web address] 04/13/19 0322Critical results verified and read back by Nurse? YES MEAN PLATELET VOLUME (test code = MPV) 12.3 fL 6.7-11.0 H IMMATURE GRANULOCYTE % (test code = IG%) 0.0 % 0.0-5.0 N NUCLEATED RBC % (test code = NRBC%) 0.0 % 0-0 N NEUTROPHIL # (test code = NT#) 0.54 K/mm3 1.8-7.7 L IMMATURE GRANULOCYTE # (test code = IG#) 0.00 x10 3/uL 0-0.03 N LYMPHOCYTE # (test code = LY#) 0.68 K/mm3 1.0-5.0 L MONOCYTE # (test code = MO#) 0.15 K/mm3 0-0.8 N EOSINOPHIL # (test code = EO#) 0.03 K/mm3 0.0-0.5 N BASOPHIL # (test code = BA#) 0.00 K/mm3 0.0-0.2 N NUCLEATED RBC # (test code = NRBC#) 0.00 K/mm3 0.0-0.1 N MANUAL DIFF REQUIRED (test code = MDIFF) YES STAIN ACCEPTABILITY (test code = STN ACCEPTABLE) TOTAL CELLS COUNTED (test code = TCC) #CELLS SEGMENTED NEUTROPHILS (test code = SEG) % 39-69 LYMPHOCYTE (test code = LYMPH) % 25-55 MONOCYTE (test code = MON) % 0-10 EOSINOPHIL (test code = EOS) % 0.0-5.0 MORPHOLOGY COMMENT (test code = MOC) PLATELET ESTIMATE (test code = PLTEST) PLATELET MORPHOLOGY (test code = PLTMORPH) CBC W/MANUAL [id number] 03:25:00* Test Item Value Reference Range Interpretation Comments WHITE BLOOD CELL (test code = WBC) 1.4 K/mm3 4.5-12.5 L RESULT VERIFIED BY REPEAT ANALYSISHas "Path Review" been performed on patient's currentadmission?YESIf yes, please insert path review specimen here 0127;H55If not, please order "Path Review" for the followingcriteria:1/ WBC count over 40,000/mm3 or below 2,000/mm32/ Platelet counts over 1,000,000/mm3, or below 10,000/mm3, or with abnormal morphology.3/ Abnormal red cell morphology or inclusions which are severe (> 3+) , widespread, or difficult to classify.4/ Abnormal white blood cell morphology: Blasts present in peripheral blood of any patient as a new finding. Abnormal cells suspected of being blasts. Patients with large numbers of immature cells in peripheral blood. Unusual cells or cells not easily classified in peripheral blood.5/ Any smear in which the technologist is uncertain of the classification or the disease. RED BLOOD CELL (test code = RBC) 3.88 mill/mm3 3.7-5.2 N HEMOGLOBIN (test code = HGB) 11.6 gram/dL 11.5-15.5 N HEMATOCRIT (test code = HCT) 34.3 % 36.0-46.0 L MEAN CELL VOLUME (test code = MCV) 88.4 fL 80-98 N MEAN CELL HGB (test code = MCH) 29.9 picogram 27.0-33.0 N MEAN CELL HGB CONCETRATION (test code = MCHC) 33.8 gram/dL 33.0-36. 0 N RED CELL DISTRIBUTION WIDTH (test code = RDW) 14.8 % 11.6-16. 2 N RED CELL DISTRIBUTION WIDTH SD (test code = RDW-SD) 46.0 fL 37 .0-51.0 N PLATELET COUNT (test code = PLT) 40 K/mm3 150-450 LL Results called to [place] [address] by [email or web address] 04/13/19 0322Critical results verified and read back by Nurse? YES MEAN PLATELET VOLUME (test code = MPV) 12.3 fL 6.7-11.0 H IMMATURE GRANULOCYTE % (test code = IG%) 0.0 % 0.0-5.0 N NUCLEATED RBC % (test code = NRBC%) 0.0 % 0-0 N NEUTROPHIL # (test code = NT#) 0.54 K/mm3 1.8-7.7 L IMMATURE GRANULOCYTE # (test code = IG#) 0.00 x10 3/uL 0-0.03 N LYMPHOCYTE # (test code = LY#) 0.68 K/mm3 1.0-5.0 L MONOCYTE # (test code = MO#) 0.15 K/mm3 0-0.8 N EOSINOPHIL # (test code = EO#) 0.03 K/mm3 0.0-0.5 N BASOPHIL # (test code = BA#) 0.00 K/mm3 0.0-0.2 N NUCLEATED RBC # (test code = NRBC#) 0.00 K/mm3 0.0-0.1 N MANUAL DIFF REQUIRED (test code = MDIFF) YES STAIN ACCEPTABILITY (test code = STN ACCEPTABLE) TOTAL CELLS COUNTED (test code = TCC) #CELLS SEGMENTED NEUTROPHILS (test code = SEG) % 39-69 LYMPHOCYTE (test code = LYMPH) % 25-55 MONOCYTE (test code = MON) % 0-10 MORPHOLOGY COMMENT (test code = MOC) PLATELET ESTIMATE (test code = PLTEST) PLATELET MORPHOLOGY (test code = PLTMORPH) CBC W/MANUAL [id number] 03:24:00* Test Item Value Reference Range Interpretation Comments WHITE BLOOD CELL (test code = WBC) 1.4 K/mm3 4.5-12.5 L RESULT VERIFIED BY REPEAT ANALYSISHas "Path Review" been performed on patient's currentadmission?YESIf yes, please insert path review specimen here 0127;H55If not, please order "Path Review" for the followingcriteria:1/ WBC count over 40,000/mm3 or below 2,000/mm32/ Platelet counts over 1,000,000/mm3, or below 10,000/mm3, or with abnormal morphology.3/ Abnormal red cell morphology or inclusions which are severe (> 3+) , widespread, or difficult to classify.4/ Abnormal white blood cell morphology: Blasts present in peripheral blood of any patient as a new finding. Abnormal cells suspected of being blasts. Patients with large numbers of immature cells in peripheral blood. Unusual cells or cells not easily classified in peripheral blood.5/ Any smear in which the technologist is uncertain of the classification or the disease. RED BLOOD CELL (test code = RBC) 3.88 mill/mm3 3.7-5.2 N HEMOGLOBIN (test code = HGB) 11.6 gram/dL 11.5-15.5 N HEMATOCRIT (test code = HCT) 34.3 % 36.0-46.0 L MEAN CELL VOLUME (test code = MCV) 88.4 fL 80-98 N MEAN CELL HGB (test code = MCH) 29.9 picogram 27.0-33.0 N MEAN CELL HGB CONCETRATION (test code = MCHC) 33.8 gram/dL 33.0-36. 0 N RED CELL DISTRIBUTION WIDTH (test code = RDW) 14.8 % 11.6-16. 2 N RED CELL DISTRIBUTION WIDTH SD (test code = RDW-SD) 46.0 fL 37 .0-51.0 N PLATELET COUNT (test code = PLT) 40 K/mm3 150-450 LL Results called to [id number] by [email or web address] 04/13/19 0322Critical results verified and read back by Nurse? YES MEAN PLATELET VOLUME (test code = MPV) 12.3 fL 6.7-11.0 H IMMATURE GRANULOCYTE % (test code = IG%) 0.0 % 0.0-5.0 N NUCLEATED RBC % (test code = NRBC%) 0.0 % 0-0 N NEUTROPHIL # (test code = NT#) 0.54 K/mm3 1.8-7.7 L IMMATURE GRANULOCYTE # (test code = IG#) 0.00 x10 3/uL 0-0.03 N LYMPHOCYTE # (test code = LY#) 0.68 K/mm3 1.0-5.0 L MONOCYTE # (test code = MO#) 0.15 K/mm3 0-0.8 N EOSINOPHIL # (test code = EO#) 0.03 K/mm3 0.0-0.5 N BASOPHIL # (test code = BA#) 0.00 K/mm3 0.0-0.2 N NUCLEATED RBC # (test code = NRBC#) 0.00 K/mm3 0.0-0.1 N MANUAL DIFF REQUIRED (test code = MDIFF) YES STAIN ACCEPTABILITY (test code = STN ACCEPTABLE) TOTAL CELLS COUNTED (test code = TCC) #CELLS SEGMENTED NEUTROPHILS (test code = SEG) % 39-69 LYMPHOCYTE (test code = LYMPH) % 25-55 MONOCYTE (test code = MON) % 0-10 EOSINOPHIL (test code = EOS) % 0.0-5.0 CABOT RINGS (test code = CAB) MORPHOLOGY COMMENT (test code = MOC) PLATELET ESTIMATE (test code = PLTEST) PLATELET MORPHOLOGY (test code = PLTMORPH) CBC W/MANUAL [id number] 03:24:00* Test Item Value Reference Range Interpretation Comments WHITE BLOOD CELL (test code = WBC) 1.4 K/mm3 4.5-12.5 L RESULT VERIFIED BY REPEAT ANALYSISHas "Path Review" been performed on patient's currentadmission?YESIf yes, please insert path review specimen here 0127;H55If not, please order "Path Review" for the followingcriteria:1/ WBC count over 40,000/mm3 or below 2,000/mm32/ Platelet counts over 1,000,000/mm3, or below 10,000/mm3, or with abnormal morphology.3/ Abnormal red cell morphology or inclusions which are severe (> 3+) , widespread, or difficult to classify.4/ Abnormal white blood cell morphology: Blasts present in peripheral blood of any patient as a new finding. Abnormal cells suspected of being blasts. Patients with large numbers of immature cells in peripheral blood. Unusual cells or cells not easily classified in peripheral blood.5/ Any smear in which the technologist is uncertain of the classification or the disease. RED BLOOD CELL (test code = RBC) 3.88 mill/mm3 3.7-5.2 N HEMOGLOBIN (test code = HGB) 11.6 gram/dL 11.5-15.5 N HEMATOCRIT (test code = HCT) 34.3 % 36.0-46.0 L MEAN CELL VOLUME (test code = MCV) 88.4 fL 80-98 N MEAN CELL HGB (test code = MCH) 29.9 picogram 27.0-33.0 N MEAN CELL HGB CONCETRATION (test code = MCHC) 33.8 gram/dL 33.0-36. 0 N RED CELL DISTRIBUTION WIDTH (test code = RDW) 14.8 % 11.6-16. 2 N RED CELL DISTRIBUTION WIDTH SD (test code = RDW-SD) 46.0 fL 37 .0-51.0 N PLATELET COUNT (test code = PLT) 40 K/mm3 150-450 LL Results called to [place] [address] by [email or web address] 04/13/19 0322Critical results verified and read back by Nurse? YES MEAN PLATELET VOLUME (test code = MPV) 12.3 fL 6.7-11.0 H IMMATURE GRANULOCYTE % (test code = IG%) 0.0 % 0.0-5.0 N NUCLEATED RBC % (test code = NRBC%) 0.0 % 0-0 N NEUTROPHIL # (test code = NT#) 0.54 K/mm3 1.8-7.7 L IMMATURE GRANULOCYTE # (test code = IG#) 0.00 x10 3/uL 0-0.03 N LYMPHOCYTE # (test code = LY#) 0.68 K/mm3 1.0-5.0 L MONOCYTE # (test code = MO#) 0.15 K/mm3 0-0.8 N EOSINOPHIL # (test code = EO#) 0.03 K/mm3 0.0-0.5 N BASOPHIL # (test code = BA#) 0.00 K/mm3 0.0-0.2 N NUCLEATED RBC # (test code = NRBC#) 0.00 K/mm3 0.0-0.1 N MANUAL DIFF REQUIRED (test code = MDIFF) YES STAIN ACCEPTABILITY (test code = STN ACCEPTABLE) TOTAL CELLS COUNTED (test code = TCC) #CELLS SEGMENTED NEUTROPHILS (test code = SEG) % 39-69 LYMPHOCYTE (test code = LYMPH) % 25-55 MONOCYTE (test code = MON) % 0-10 EOSINOPHIL (test code = EOS) % 0.0-5.0 CABOT RINGS (test code = CAB) MORPHOLOGY COMMENT (test code = MOC) PLATELET ESTIMATE (test code = PLTEST) PLATELET MORPHOLOGY (test code = PLTMORPH) COMPREHENSIVE METABOLIC [id number] 03:21:00* Test Item Value Reference Range Interpretation Comments SODIUM (test code = NA) 142 mmol/L 136-145 N POTASSIUM (test code = K) 3.8 mmol/L 3.5-5.1 N CHLORIDE (test code = CL) 109.0 mmol/L 98-107 H CARBON DIOXIDE (test code = CO2) mmol/L 21-32 ANION GAP (test code = GAP) 10-20 GLUCOSE (test code = GLU) mg/dL 74-106 BLOOD UREA NITROGEN (test code = BUN) mg/dL 7-18 GLOMERULAR FILTRATION RATE (test code = GFR) mL/min >=60 CREATININE (test code = CREAT) mg/dL 0.55-1.02 BUN/CREATININE RATIO (test code = BUN/CREA) 10-20 TOTAL PROTEIN (test code = PROT) gram/dL 6.4-8.2 ALBUMIN (test code = ALB) g/dL 3.4-5.0 GLOBULIN (test code = GLOB) gram/dL 2.7-4.2 ALBUMIN/GLOBULIN RATIO (test code = A/G) 0.75-1.50 CALCIUM (test code = CA) mg/dL 8.5-10.1 BILIRUBIN TOTAL (test code = BILT) mg/dL 0.0-1.0 SGOT/AST (test code = AST) IUnit/L 15-37 SGPT/ALT (test code = ALT) IUnit/L 12-78 ALKALINE PHOSPHATASE TOTAL (test code = ALKP) IUnit/L 45-117 CBC W/MANUAL [id number] 01:07:00* Test Item Value Reference Range Interpretation Comments WHITE BLOOD CELL (test code = WBC) 1.9 K/mm3 4.5-12.5 L RESULT VERIFIED BY REPEAT ANALYSISHas "Path Review" been performed on patient's currentadmission?NO If yes, please insert path review specimen here If not, please order "Path Review" for the followingcriteria:1/ WBC count over 40,000/mm3 or below 2,000/mm32/ Platelet counts over 1,000,000/mm3, or below 10,000/mm3, or with abnormal morphology.3/ Abnormal red cell morphology or inclusions which are severe (> 3+) , widespread, or difficult to classify.4/ Abnormal white blood cell morphology: Blasts present in peripheral blood of any patient as a new finding. Abnormal cells suspected of being blasts. Patients with large numbers of immature cells in peripheral blood. Unusual cells or cells not easily classified in peripheral blood.5/ Any smear in which the technologist is uncertain of the classification or the disease. RED BLOOD CELL (test code = RBC) 4.51 mill/mm3 3.7-5.2 N HEMOGLOBIN (test code = HGB) 12.8 gram/dL 11.5-15.5 N HEMATOCRIT (test code = HCT) 39.5 % 36.0-46.0 N MEAN CELL VOLUME (test code = MCV) 87.6 fL 80-98 N MEAN CELL HGB (test code = MCH) 28.4 picogram 27.0-33.0 N MEAN CELL HGB CONCETRATION (test code = MCHC) 32.4 gram/dL 33.0-36. 0 L RED CELL DISTRIBUTION WIDTH (test code = RDW) 14.6 % 11.6-16. 2 N RED CELL DISTRIBUTION WIDTH SD (test code = RDW-SD) 46.1 fL 37 .0-51.0 N PLATELET COUNT (test code = PLT) 26 K/mm3 150-450 LL Results called to [id number] by EDD 04/12/19 0548Critical results verified and read back by Nurse?YES MEAN PLATELET VOLUME (test code = MPV) 12.1 fL 6.7-11.0 H IMMATURE GRANULOCYTE % (test code = IG%) 1.0 % 0.0-5.0 N NUCLEATED RBC % (test code = NRBC%) 0.0 % 0-0 N NEUTROPHIL # (test code = NT#) 1.04 K/mm3 1.8-7.7 L IMMATURE GRANULOCYTE # (test code = IG#) 0.02 x10 3/uL 0-0.03 N LYMPHOCYTE # (test code = LY#) 0.67 K/mm3 1.0-5.0 L MONOCYTE # (test code = MO#) 0.17 K/mm3 0-0.8 N EOSINOPHIL # (test code = EO#) 0.04 K/mm3 0.0-0.5 N BASOPHIL # (test code = BA#) 0.00 K/mm3 0.0-0.2 N NUCLEATED RBC # (test code = NRBC#) 0.00 K/mm3 0.0-0.1 N MANUAL DIFF REQUIRED (test code = MDIFF) YES STAIN ACCEPTABILITY (test code = STN ACCEPTABLE) STAIN ACCEPTABLE TOTAL CELLS COUNTED (test code = TCC) 115 #CELLS SEGMENTED NEUTROPHILS (test code = SEG) 47.8 % 39-69 N BAND NEUTROPHIL (test code = BAND) 0.9 % 0-10 N LYMPHOCYTE (test code = LYMPH) 44.4 % 25-55 N REACTIVE LYMPH (test code = RELYMPH) 0 % MONOCYTE (test code = MON) 5.2 % 0-10 N EOSINOPHIL (test code = EOS) 0 % 0.0-5.0 N BASOPHIL (test code = BASO) 1.7 % 0-1.0 H METAMYELOCYTE (test code = META) 0 % 0-0 N MYELOCYTE (test code = MYELO) 0 % 0.0-0.0 N PROMYELOCYTE (test code = PROM) 0 % 0-0 N MORPHOLOGY COMMENT (test code = MOC) NORMAL PLATELET ESTIMATE (test code = PLTEST) DECREASED PLATELET MORPHOLOGY (test code = PLTMORPH) NORMAL IMMATURE FORMS (test code = IMMAT) 0 % 0-0 N PATHOLOGISTS [id number] 01:07:00* Test Item Value Reference Range Interpretation Comments PATHOLOGISTS FINDINGS (test code = PATH) COMMENTS PATH NOTES LEUKOPENIA, THROMBOCYTOPENIA Reviewed by Dr Lilly Prabhakar REVIEWED BY PATHOLOGIST [id number] 20:57:00* Test Item Value Reference Range Interpretation Comments GLUBED (test code = GLUBED) 149 mg/dL 74-106 H Performed by certified shovel log loader operator at [facility] [id number] 16:49:00* Test Item Value Reference Range Interpretation Comments GLUBED (test code = GLUBED) 256 mg/dL 74-106 H Performed by certified shovel log loader operator at [facility] [id number] 12:03:00* Test Item Value Reference Range Interpretation Comments GLUBED (test code = GLUBED) 101 mg/dL 74-106 N Performed by certified shovel log loader operator at [facility] LACTIC DEHYDROGENASE(LDH)2019-04-12 10:09:00* Test Item Value Reference Range Interpretation Comments LACTIC DEHYDROGENASE(LDH) (test code = LDH) 256 IUnit/L 84-246 H FE W/TOTAL IRON BINDING CAP.2019-04-12 10:09:00* Test Item Value Reference Range Interpretation Comments SERUM IRON (test code = IRON) 140 ug/dL 50-175 N TOTAL IRON BINDING CAPACITY (test code = TIBC) 381 mcg/dL 250-450 N IRON SATURATION (test code = FESAT) 36.75 % 13-45 N VITAMIN [id number] 10:09:00* Test Item Value Reference Range Interpretation Comments VITAMIN B12 (test code = VITB12) 628 pg/mL 193-986 N FOLIC [id number] 10:09:00* Test Item Value Reference Range Interpretation Comments FOLIC ACID (test code = FOL) 16.1 ng/mL 3.10-17.50 N KAPPA LAMBDA [id number] 10:09:00* Test Item Value Reference Range Interpretation Comments KAPPA CHAINS (FLOW) (test code = KAPPA) 18.5 mg/L 3.3-19.4 LAMBDA CHAINS (FLOW) (test code = LAMBDA) 18.7 mg/L 5.7-26.3 KAPPA/LAMBDA RATIO (test code = ARELI/GERMAN) 0.99 0.26-1.65 Performed At: [facility] [id number] [place], [place] [id number] CN MD Ph:[phone] [id number] 10:09:00* Test Item Value Reference Range Interpretation Comments FERRITIN (test code = REYNA) 162 ng/mL 8-388 N - HEPA IMAG INCL GB W [id number] 08:25:00 FAX: Artem Esposito MD [phone] [place]: St: [facility] FAX: Bin George MD [phone] Name: WANDA [facility]ILLASENOR [facility] : 1950 Age/S: 68/F [address] [facility] Unit #: [id number] Loc: [facility] [place] [address] Phys: Jaylan Greenberg MD Acct: [id number] Dis Date: Status: ADM IN PHONE #: [phone] Exam Date: 04/10/2019 1795 FAX #: [phone] Reason: abdominal pain EXAMS: CPT CODE: [id number] HEPA IMAG INCL GB W PHA [id number] HISTORY: abdominal pain EXAM: NUCLEAR MEDICINE HE PATOBILIARY SCAN. TECHNIQUE: After IV injection of 5.1 mCi Tc 99m Choletec, sequential planar images were obtained over the upper abdomen o ut to 60 minutes. FINDINGS: Homogeneous distribution of radiophar maceutical in the liver. Normal accumulation of radiopharmaceutical in the gallbladder by 30 minutes. Normal accumulation of radiopharmaceutical in small bowel following administration of cholecystokinin. The gallbladder ejection fraction was calculated at 8%. IMPRESSION: 1. No evidence of acute cholecystitis or biliary obstruction. 2. Markedly reduced gallbladder ejection fraction likely represents b iliary dyskinesia. Location: [facility] Electronically Si gned by Jeffrey Ramos MD on 04/12/2019 at 0825 Reported an d signed by: Jeffrey Ramos MD CC: Artem Esposito MD; Kori Stovall MD Technologist: Soumya Flores RT(N) Trnscrd Date/Time/By: 04/12/2019 (0889) : By: [email or web address] Orig Print D/T: S: 04/12/2019 (0829) PAGE 1 Signed Report [id number] 06:39:00* Test Item Value Reference Range Interpretation Comments GLUBED (test code = GLUBED) 182 mg/dL 74-106 H Performed by certified shovel log loader operator at [facility] CBC W/MANUAL [id number] 06:21:00* Test Item Value Reference Range Interpretation Comments WHITE BLOOD CELL (test code = WBC) 1.9 K/mm3 4.5-12.5 L RESULT VERIFIED BY REPEAT ANALYSISHas "Path Review" been performed on patient's currentadmission?NO If yes, please insert path review specimen here If not, please order "Path Review" for the followingcriteria:1/ WBC count over 40,000/mm3 or below 2,000/mm32/ Platelet counts over 1,000,000/mm3, or below 10,000/mm3, or with abnormal morphology.3/ Abnormal red cell morphology or inclusions which are severe (> 3+) , widespread, or difficult to classify.4/ Abnormal white blood cell morphology: Blasts present in peripheral blood of any patient as a new finding. Abnormal cells suspected of being blasts. Patients with large numbers of immature cells in peripheral blood. Unusual cells or cells not easily classified in peripheral blood.5/ Any smear in which the technologist is uncertain of the classification or the disease. RED BLOOD CELL (test code = RBC) 4.51 mill/mm3 3.7-5.2 N HEMOGLOBIN (test code = HGB) 12.8 gram/dL 11.5-15.5 N HEMATOCRIT (test code = HCT) 39.5 % 36.0-46.0 N MEAN CELL VOLUME (test code = MCV) 87.6 fL 80-98 N MEAN CELL HGB (test code = MCH) 28.4 picogram 27.0-33.0 N MEAN CELL HGB CONCETRATION (test code = MCHC) 32.4 gram/dL 33.0-36. 0 L RED CELL DISTRIBUTION WIDTH (test code = RDW) 14.6 % 11.6-16. 2 N RED CELL DISTRIBUTION WIDTH SD (test code = RDW-SD) 46.1 fL 37 .0-51.0 N PLATELET COUNT (test code = PLT) 26 K/mm3 150-450 LL Results called to [id number] by [email or web address] 04/12/19 [id number] results verified and read back by Nurse?YES MEAN PLATELET VOLUME (test code = MPV) 12.1 fL 6.7-11.0 H IMMATURE GRANULOCYTE % (test code = IG%) 1.0 % 0.0-5.0 N NUCLEATED RBC % (test code = NRBC%) 0.0 % 0-0 N NEUTROPHIL # (test code = NT#) 1.04 K/mm3 1.8-7.7 L IMMATURE GRANULOCYTE # (test code = IG#) 0.02 x10 3/uL 0-0.03 N LYMPHOCYTE # (test code = LY#) 0.67 K/mm3 1.0-5.0 L MONOCYTE # (test code = MO#) 0.17 K/mm3 0-0.8 N EOSINOPHIL # (test code = EO#) 0.04 K/mm3 0.0-0.5 N BASOPHIL # (test code = BA#) 0.00 K/mm3 0.0-0.2 N NUCLEATED RBC # (test code = NRBC#) 0.00 K/mm3 0.0-0.1 N MANUAL DIFF REQUIRED (test code = MDIFF) YES STAIN ACCEPTABILITY (test code = STN ACCEPTABLE) STAIN ACCEPTABLE TOTAL CELLS COUNTED (test code = TCC) 115 #CELLS SEGMENTED NEUTROPHILS (test code = SEG) 47.8 % 39-69 N BAND NEUTROPHIL (test code = BAND) 0.9 % 0-10 N LYMPHOCYTE (test code = LYMPH) 44.4 % 25-55 N REACTIVE LYMPH (test code = RELYMPH) 0 % MONOCYTE (test code = MON) 5.2 % 0-10 N EOSINOPHIL (test code = EOS) 0 % 0.0-5.0 N BASOPHIL (test code = BASO) 1.7 % 0-1.0 H METAMYELOCYTE (test code = META) 0 % 0-0 N MYELOCYTE (test code = MYELO) 0 % 0.0-0.0 N PROMYELOCYTE (test code = PROM) 0 % 0-0 N MORPHOLOGY COMMENT (test code = MOC) NORMAL PLATELET ESTIMATE (test code = PLTEST) DECREASED PLATELET MORPHOLOGY (test code = PLTMORPH) NORMAL IMMATURE FORMS (test code = IMMAT) 0 % 0-0 N PATHOLOGISTS [id number] 06:21:00* Test Item Value Reference Range Interpretation Comments PATHOLOGISTS FINDINGS (test code = PATH) PATH NOTES COMPREHENSIVE METABOLIC [id number] 06:17:00* Test Item Value Reference Range Interpretation Comments SODIUM (test code = NA) 143 mmol/L 136-145 N POTASSIUM (test code = K) 4.0 mmol/L 3.5-5.1 N CHLORIDE (test code = CL) 108.0 mmol/L 98-107 H CARBON DIOXIDE (test code = CO2) 32.0 mmol/L 21-32 N ANION GAP (test code = GAP) 7.0 10-20 L GLUCOSE (test code = GLU) 168 mg/dL 74-106 H BLOOD UREA NITROGEN (test code = BUN) 15 mg/dL 7-18 N GLOMERULAR FILTRATION RATE (test code = GFR) > 60 mL/min >=60 Estimated GFR by using Modified MDRD formula.Chronic kidney disease is defined as either kidney damageor GFR <60 mL/min/1.73 m2 for >3 months. CREATININE (test code = CREAT) 0.70 mg/dL 0.55-1.02 N Note change in reference range due to change in reagent. BUN/CREATININE RATIO (test code = BUN/CREA) 21.4 10-20 H TOTAL PROTEIN (test code = PROT) 6.3 gram/dL 6.4-8.2 L ALBUMIN (test code = ALB) 2.4 g/dL 3.4-5.0 L GLOBULIN (test code = GLOB) 3.9 gram/dL 2.7-4.2 N ALBUMIN/GLOBULIN RATIO (test code = A/G) 0.6 0.75-1.50 L CALCIUM (test code = CA) 8.7 mg/dL 8.5-10.1 N BILIRUBIN TOTAL (test code = BILT) 0.80 mg/dL 0.0-1.0 N SGOT/AST (test code = AST) 52 IUnit/L 15-37 H SGPT/ALT (test code = ALT) 70 IUnit/L 12-78 N ALKALINE PHOSPHATASE TOTAL (test code = ALKP) 126 IUnit/L 45-117 H Note change in reference range due to change in reagent. COMPREHENSIVE METABOLIC [id number] 06:05:00* Test Item Value Reference Range Interpretation Comments SODIUM (test code = NA) 143 mmol/L 136-145 N POTASSIUM (test code = K) 4.0 mmol/L 3.5-5.1 N CHLORIDE (test code = CL) 108.0 mmol/L 98-107 H CARBON DIOXIDE (test code = CO2) mmol/L 21-32 ANION GAP (test code = GAP) 10-20 GLUCOSE (test code = GLU) mg/dL 74-106 BLOOD UREA NITROGEN (test code = BUN) mg/dL 7-18 GLOMERULAR FILTRATION RATE (test code = GFR) mL/min >=60 CREATININE (test code = CREAT) mg/dL 0.55-1.02 BUN/CREATININE RATIO (test code = BUN/CREA) 10-20 TOTAL PROTEIN (test code = PROT) gram/dL 6.4-8.2 ALBUMIN (test code = ALB) g/dL 3.4-5.0 GLOBULIN (test code = GLOB) gram/dL 2.7-4.2 ALBUMIN/GLOBULIN RATIO (test code = A/G) 0.75-1.50 CALCIUM (test code = CA) mg/dL 8.5-10.1 BILIRUBIN TOTAL (test code = BILT) mg/dL 0.0-1.0 SGOT/AST (test code = AST) IUnit/L 15-37 SGPT/ALT (test code = ALT) IUnit/L 12-78 ALKALINE PHOSPHATASE TOTAL (test code = ALKP) IUnit/L 45-117 CBC W/MANUAL [id number] 05:55:00* Test Item Value Reference Range Interpretation Comments WHITE BLOOD CELL (test code = WBC) 1.9 K/mm3 4.5-12.5 L RESULT VERIFIED BY REPEAT ANALYSISHas "Path Review" been performed on patient's currentadmission?NO If yes, please insert path review specimen here If not, please order "Path Review" for the followingcriteria:1/ WBC count over 40,000/mm3 or below 2,000/mm32/ Platelet counts over 1,000,000/mm3, or below 10,000/mm3, or with abnormal morphology.3/ Abnormal red cell morphology or inclusions which are severe (> 3+) , widespread, or difficult to classify.4/ Abnormal white blood cell morphology: Blasts present in peripheral blood of any patient as a new finding. Abnormal cells suspected of being blasts. Patients with large numbers of immature cells in peripheral blood. Unusual cells or cells not easily classified in peripheral blood.5/ Any smear in which the technologist is uncertain of the classification or the disease. RED BLOOD CELL (test code = RBC) 4.51 mill/mm3 3.7-5.2 N HEMOGLOBIN (test code = HGB) 12.8 gram/dL 11.5-15.5 N HEMATOCRIT (test code = HCT) 39.5 % 36.0-46.0 N MEAN CELL VOLUME (test code = MCV) 87.6 fL 80-98 N MEAN CELL HGB (test code = MCH) 28.4 picogram 27.0-33.0 N MEAN CELL HGB CONCETRATION (test code = MCHC) 32.4 gram/dL 33.0-36. 0 L RED CELL DISTRIBUTION WIDTH (test code = RDW) 14.6 % 11.6-16. 2 N RED CELL DISTRIBUTION WIDTH SD (test code = RDW-SD) 46.1 fL 37 .0-51.0 N PLATELET COUNT (test code = PLT) 26 K/mm3 150-450 LL Results called to [id number] by [email or web address] 04/12/19 0548Critical results verified and read back by Nurse?YES MEAN PLATELET VOLUME (test code = MPV) 12.1 fL 6.7-11.0 H IMMATURE GRANULOCYTE % (test code = IG%) 1.0 % 0.0-5.0 N NUCLEATED RBC % (test code = NRBC%) 0.0 % 0-0 N NEUTROPHIL # (test code = NT#) 1.04 K/mm3 1.8-7.7 L IMMATURE GRANULOCYTE # (test code = IG#) 0.02 x10 3/uL 0-0.03 N LYMPHOCYTE # (test code = LY#) 0.67 K/mm3 1.0-5.0 L MONOCYTE # (test code = MO#) 0.17 K/mm3 0-0.8 N EOSINOPHIL # (test code = EO#) 0.04 K/mm3 0.0-0.5 N BASOPHIL # (test code = BA#) 0.00 K/mm3 0.0-0.2 N NUCLEATED RBC # (test code = NRBC#) 0.00 K/mm3 0.0-0.1 N MANUAL DIFF REQUIRED (test code = MDIFF) YES STAIN ACCEPTABILITY (test code = STN ACCEPTABLE) TOTAL CELLS COUNTED (test code = TCC) #CELLS SEGMENTED NEUTROPHILS (test code = SEG) % 39-69 LYMPHOCYTE (test code = LYMPH) % 25-55 MONOCYTE (test code = MON) % 0-10 MORPHOLOGY COMMENT (test code = MOC) PLATELET ESTIMATE (test code = PLTEST) PLATELET MORPHOLOGY (test code = PLTMORPH) PATHOLOGISTS [id number] 05:55:00* Test Item Value Reference Range Interpretation Comments PATHOLOGISTS FINDINGS (test code = PATH) PATH NOTES CBC W/MANUAL [id number] 05:51:00* Test Item Value Reference Range Interpretation Comments WHITE BLOOD CELL (test code = WBC) 1.9 K/mm3 4.5-12.5 L RESULT VERIFIED BY REPEAT ANALYSISHas "Path Review" been performed on patient's currentadmission?NO If yes, please insert path review specimen here If not, please order "Path Review" for the followingcriteria:1/ WBC count over 40,000/mm3 or below 2,000/mm32/ Platelet counts over 1,000,000/mm3, or below 10,000/mm3, or with abnormal morphology.3/ Abnormal red cell morphology or inclusions which are severe (> 3+) , widespread, or difficult to classify.4/ Abnormal white blood cell morphology: Blasts present in peripheral blood of any patient as a new finding. Abnormal cells suspected of being blasts. Patients with large numbers of immature cells in peripheral blood. Unusual cells or cells not easily classified in peripheral blood.5/ Any smear in which the technologist is uncertain of the classification or the disease. RED BLOOD CELL (test code = RBC) 4.51 mill/mm3 3.7-5.2 N HEMOGLOBIN (test code = HGB) 12.8 gram/dL 11.5-15.5 N HEMATOCRIT (test code = HCT) 39.5 % 36.0-46.0 N MEAN CELL VOLUME (test code = MCV) 87.6 fL 80-98 N MEAN CELL HGB (test code = MCH) 28.4 picogram 27.0-33.0 N MEAN CELL HGB CONCETRATION (test code = MCHC) 32.4 gram/dL 33.0-36. 0 L RED CELL DISTRIBUTION WIDTH (test code = RDW) 14.6 % 11.6-16. 2 N RED CELL DISTRIBUTION WIDTH SD (test code = RDW-SD) 46.1 fL 37 .0-51.0 N PLATELET COUNT (test code = PLT) 26 K/mm3 150-450 LL Results called to [id number] by JOSE1 04/12/19 0548Critical results verified and read back by Nurse?YES MEAN PLATELET VOLUME (test code = MPV) 12.1 fL 6.7-11.0 H IMMATURE GRANULOCYTE % (test code = IG%) 1.0 % 0.0-5.0 N NUCLEATED RBC % (test code = NRBC%) 0.0 % 0-0 N NEUTROPHIL # (test code = NT#) 1.04 K/mm3 1.8-7.7 L IMMATURE GRANULOCYTE # (test code = IG#) 0.02 x10 3/uL 0-0.03 N LYMPHOCYTE # (test code = LY#) 0.67 K/mm3 1.0-5.0 L MONOCYTE # (test code = MO#) 0.17 K/mm3 0-0.8 N EOSINOPHIL # (test code = EO#) 0.04 K/mm3 0.0-0.5 N BASOPHIL # (test code = BA#) 0.00 K/mm3 0.0-0.2 N NUCLEATED RBC # (test code = NRBC#) 0.00 K/mm3 0.0-0.1 N MANUAL DIFF REQUIRED (test code = MDIFF) YES STAIN ACCEPTABILITY (test code = STN ACCEPTABLE) TOTAL CELLS COUNTED (test code = TCC) #CELLS SEGMENTED NEUTROPHILS (test code = SEG) % 39-69 LYMPHOCYTE (test code = LYMPH) % 25-55 MONOCYTE (test code = MON) % 0-10 EOSINOPHIL (test code = EOS) % 0.0-5.0 CABOT RINGS (test code = CAB) MORPHOLOGY COMMENT (test code = MOC) PLATELET ESTIMATE (test code = PLTEST) PLATELET MORPHOLOGY (test code = PLTMORPH) CBC W/MANUAL [id number] 05:51:00* Test Item Value Reference Range Interpretation Comments WHITE BLOOD CELL (test code = WBC) 1.9 K/mm3 4.5-12.5 L RESULT VERIFIED BY REPEAT ANALYSISHas "Path Review" been performed on patient's currentadmission?NO If yes, please insert path review specimen here If not, please order "Path Review" for the followingcriteria:1/ WBC count over 40,000/mm3 or below 2,000/mm32/ Platelet counts over 1,000,000/mm3, or below 10,000/mm3, or with abnormal morphology.3/ Abnormal red cell morphology or inclusions which are severe (> 3+) , widespread, or difficult to classify.4/ Abnormal white blood cell morphology: Blasts present in peripheral blood of any patient as a new finding. Abnormal cells suspected of being blasts. Patients with large numbers of immature cells in peripheral blood. Unusual cells or cells not easily classified in peripheral blood.5/ Any smear in which the technologist is uncertain of the classification or the disease. RED BLOOD CELL (test code = RBC) 4.51 mill/mm3 3.7-5.2 N HEMOGLOBIN (test code = HGB) 12.8 gram/dL 11.5-15.5 N HEMATOCRIT (test code = HCT) 39.5 % 36.0-46.0 N MEAN CELL VOLUME (test code = MCV) 87.6 fL 80-98 N MEAN CELL HGB (test code = MCH) 28.4 picogram 27.0-33.0 N MEAN CELL HGB CONCETRATION (test code = MCHC) 32.4 gram/dL 33.0-36. 0 L RED CELL DISTRIBUTION WIDTH (test code = RDW) 14.6 % 11.6-16. 2 N RED CELL DISTRIBUTION WIDTH SD (test code = RDW-SD) 46.1 fL 37 .0-51.0 N PLATELET COUNT (test code = PLT) 26 K/mm3 150-450 LL Results called to [id number] by [email or web address] 04/12/19 0548Critical results verified and read back by Nurse?YES MEAN PLATELET VOLUME (test code = MPV) 12.1 fL 6.7-11.0 H IMMATURE GRANULOCYTE % (test code = IG%) 1.0 % 0.0-5.0 N NUCLEATED RBC % (test code = NRBC%) 0.0 % 0-0 N NEUTROPHIL # (test code = NT#) 1.04 K/mm3 1.8-7.7 L IMMATURE GRANULOCYTE # (test code = IG#) 0.02 x10 3/uL 0-0.03 N LYMPHOCYTE # (test code = LY#) 0.67 K/mm3 1.0-5.0 L MONOCYTE # (test code = MO#) 0.17 K/mm3 0-0.8 N EOSINOPHIL # (test code = EO#) 0.04 K/mm3 0.0-0.5 N BASOPHIL # (test code = BA#) 0.00 K/mm3 0.0-0.2 N NUCLEATED RBC # (test code = NRBC#) 0.00 K/mm3 0.0-0.1 N MANUAL DIFF REQUIRED (test code = MDIFF) YES STAIN ACCEPTABILITY (test code = STN ACCEPTABLE) TOTAL CELLS COUNTED (test code = TCC) #CELLS SEGMENTED NEUTROPHILS (test code = SEG) % 39-69 LYMPHOCYTE (test code = LYMPH) % 25-55 MONOCYTE (test code = MON) % 0-10 EOSINOPHIL (test code = EOS) % 0.0-5.0 CABOT RINGS (test code = CAB) MORPHOLOGY COMMENT (test code = MOC) PLATELET ESTIMATE (test code = PLTEST) PLATELET MORPHOLOGY (test code = PLTMORPH) CBC W/MANUAL [id number] 05:51:00* Test Item Value Reference Range Interpretation Comments WHITE BLOOD CELL (test code = WBC) 1.9 K/mm3 4.5-12.5 L RESULT VERIFIED BY REPEAT ANALYSISHas "Path Review" been performed on patient's currentadmission?NO If yes, please insert path review specimen here If not, please order "Path Review" for the followingcriteria:1/ WBC count over 40,000/mm3 or below 2,000/mm32/ Platelet counts over 1,000,000/mm3, or below 10,000/mm3, or with abnormal morphology.3/ Abnormal red cell morphology or inclusions which are severe (> 3+) , widespread, or difficult to classify.4/ Abnormal white blood cell morphology: Blasts present in peripheral blood of any patient as a new finding. Abnormal cells suspected of being blasts. Patients with large numbers of immature cells in peripheral blood. Unusual cells or cells not easily classified in peripheral blood.5/ Any smear in which the technologist is uncertain of the classification or the disease. RED BLOOD CELL (test code = RBC) 4.51 mill/mm3 3.7-5.2 N HEMOGLOBIN (test code = HGB) 12.8 gram/dL 11.5-15.5 N HEMATOCRIT (test code = HCT) 39.5 % 36.0-46.0 N MEAN CELL VOLUME (test code = MCV) 87.6 fL 80-98 N MEAN CELL HGB (test code = MCH) 28.4 picogram 27.0-33.0 N MEAN CELL HGB CONCETRATION (test code = MCHC) 32.4 gram/dL 33.0-36. 0 L RED CELL DISTRIBUTION WIDTH (test code = RDW) 14.6 % 11.6-16. 2 N RED CELL DISTRIBUTION WIDTH SD (test code = RDW-SD) 46.1 fL 37 .0-51.0 N PLATELET COUNT (test code = PLT) 26 K/mm3 150-450 LL Results called to [id number] by [email or web address] 04/12/19 0548Critical results verified and read back by Nurse?YES MEAN PLATELET VOLUME (test code = MPV) 12.1 fL 6.7-11.0 H IMMATURE GRANULOCYTE % (test code = IG%) 1.0 % 0.0-5.0 N NUCLEATED RBC % (test code = NRBC%) 0.0 % 0-0 N NEUTROPHIL # (test code = NT#) 1.04 K/mm3 1.8-7.7 L IMMATURE GRANULOCYTE # (test code = IG#) 0.02 x10 3/uL 0-0.03 N LYMPHOCYTE # (test code = LY#) 0.67 K/mm3 1.0-5.0 L MONOCYTE # (test code = MO#) 0.17 K/mm3 0-0.8 N EOSINOPHIL # (test code = EO#) 0.04 K/mm3 0.0-0.5 N BASOPHIL # (test code = BA#) 0.00 K/mm3 0.0-0.2 N NUCLEATED RBC # (test code = NRBC#) 0.00 K/mm3 0.0-0.1 N MANUAL DIFF REQUIRED (test code = MDIFF) YES STAIN ACCEPTABILITY (test code = STN ACCEPTABLE) TOTAL CELLS COUNTED (test code = TCC) #CELLS SEGMENTED NEUTROPHILS (test code = SEG) % 39-69 LYMPHOCYTE (test code = LYMPH) % 25-55 MONOCYTE (test code = MON) % 0-10 EOSINOPHIL (test code = EOS) % 0.0-5.0 MORPHOLOGY COMMENT (test code = MOC) PLATELET ESTIMATE (test code = PLTEST) PLATELET MORPHOLOGY (test code = PLTMORPH) CBC W/MANUAL [id number] 05:51:00* Test Item Value Reference Range Interpretation Comments WHITE BLOOD CELL (test code = WBC) 1.9 K/mm3 4.5-12.5 L RESULT VERIFIED BY REPEAT ANALYSISHas "Path Review" been performed on patient's currentadmission?NO If yes, please insert path review specimen here If not, please order "Path Review" for the followingcriteria:1/ WBC count over 40,000/mm3 or below 2,000/mm32/ Platelet counts over 1,000,000/mm3, or below 10,000/mm3, or with abnormal morphology.3/ Abnormal red cell morphology or inclusions which are severe (> 3+) , widespread, or difficult to classify.4/ Abnormal white blood cell morphology: Blasts present in peripheral blood of any patient as a new finding. Abnormal cells suspected of being blasts. Patients with large numbers of immature cells in peripheral blood. Unusual cells or cells not easily classified in peripheral blood.5/ Any smear in which the technologist is uncertain of the classification or the disease. RED BLOOD CELL (test code = RBC) 4.51 mill/mm3 3.7-5.2 N HEMOGLOBIN (test code = HGB) 12.8 gram/dL 11.5-15.5 N HEMATOCRIT (test code = HCT) 39.5 % 36.0-46.0 N MEAN CELL VOLUME (test code = MCV) 87.6 fL 80-98 N MEAN CELL HGB (test code = MCH) 28.4 picogram 27.0-33.0 N MEAN CELL HGB CONCETRATION (test code = MCHC) 32.4 gram/dL 33.0-36. 0 L RED CELL DISTRIBUTION WIDTH (test code = RDW) 14.6 % 11.6-16. 2 N RED CELL DISTRIBUTION WIDTH SD (test code = RDW-SD) 46.1 fL 37 .0-51.0 N PLATELET COUNT (test code = PLT) 26 K/mm3 150-450 LL Results called to [id number] by EDD 04/12/19 0548Critical results verified and read back by Nurse?YES MEAN PLATELET VOLUME (test code = MPV) 12.1 fL 6.7-11.0 H IMMATURE GRANULOCYTE % (test code = IG%) 1.0 % 0.0-5.0 N NUCLEATED RBC % (test code = NRBC%) 0.0 % 0-0 N NEUTROPHIL # (test code = NT#) 1.04 K/mm3 1.8-7.7 L IMMATURE GRANULOCYTE # (test code = IG#) 0.02 x10 3/uL 0-0.03 N LYMPHOCYTE # (test code = LY#) 0.67 K/mm3 1.0-5.0 L MONOCYTE # (test code = MO#) 0.17 K/mm3 0-0.8 N EOSINOPHIL # (test code = EO#) 0.04 K/mm3 0.0-0.5 N BASOPHIL # (test code = BA#) 0.00 K/mm3 0.0-0.2 N NUCLEATED RBC # (test code = NRBC#) 0.00 K/mm3 0.0-0.1 N MANUAL DIFF REQUIRED (test code = MDIFF) YES STAIN ACCEPTABILITY (test code = STN ACCEPTABLE) TOTAL CELLS COUNTED (test code = TCC) #CELLS SEGMENTED NEUTROPHILS (test code = SEG) % 39-69 LYMPHOCYTE (test code = LYMPH) % 25-55 MONOCYTE (test code = MON) % 0-10 MORPHOLOGY COMMENT (test code = MOC) PLATELET ESTIMATE (test code = PLTEST) PLATELET MORPHOLOGY (test code = PLTMORPH) CBC W/MANUAL [id number] 05:51:00* Test Item Value Reference Range Interpretation Comments WHITE BLOOD CELL (test code = WBC) 1.9 K/mm3 4.5-12.5 L RESULT VERIFIED BY REPEAT ANALYSISHas "Path Review" been performed on patient's currentadmission?NO If yes, please insert path review specimen here If not, please order "Path Review" for the followingcriteria:1/ WBC count over 40,000/mm3 or below 2,000/mm32/ Platelet counts over 1,000,000/mm3, or below 10,000/mm3, or with abnormal morphology.3/ Abnormal red cell morphology or inclusions which are severe (> 3+) , widespread, or difficult to classify.4/ Abnormal white blood cell morphology: Blasts present in peripheral blood of any patient as a new finding. Abnormal cells suspected of being blasts. Patients with large numbers of immature cells in peripheral blood. Unusual cells or cells not easily classified in peripheral blood.5/ Any smear in which the technologist is uncertain of the classification or the disease. RED BLOOD CELL (test code = RBC) 4.51 mill/mm3 3.7-5.2 N HEMOGLOBIN (test code = HGB) 12.8 gram/dL 11.5-15.5 N HEMATOCRIT (test code = HCT) 39.5 % 36.0-46.0 N MEAN CELL VOLUME (test code = MCV) 87.6 fL 80-98 N MEAN CELL HGB (test code = MCH) 28.4 picogram 27.0-33.0 N MEAN CELL HGB CONCETRATION (test code = MCHC) 32.4 gram/dL 33.0-36. 0 L RED CELL DISTRIBUTION WIDTH (test code = RDW) 14.6 % 11.6-16. 2 N RED CELL DISTRIBUTION WIDTH SD (test code = RDW-SD) 46.1 fL 37 .0-51.0 N PLATELET COUNT (test code = PLT) 26 K/mm3 150-450 LL Results called to [id number] by [email or web address] 04/12/19 0548Critical results verified and read back by Nurse?YES MEAN PLATELET VOLUME (test code = MPV) 12.1 fL 6.7-11.0 H IMMATURE GRANULOCYTE % (test code = IG%) 1.0 % 0.0-5.0 N NUCLEATED RBC % (test code = NRBC%) 0.0 % 0-0 N NEUTROPHIL # (test code = NT#) 1.04 K/mm3 1.8-7.7 L IMMATURE GRANULOCYTE # (test code = IG#) 0.02 x10 3/uL 0-0.03 N LYMPHOCYTE # (test code = LY#) 0.67 K/mm3 1.0-5.0 L MONOCYTE # (test code = MO#) 0.17 K/mm3 0-0.8 N EOSINOPHIL # (test code = EO#) 0.04 K/mm3 0.0-0.5 N BASOPHIL # (test code = BA#) 0.00 K/mm3 0.0-0.2 N NUCLEATED RBC # (test code = NRBC#) 0.00 K/mm3 0.0-0.1 N MANUAL DIFF REQUIRED (test code = MDIFF) YES STAIN ACCEPTABILITY (test code = STN ACCEPTABLE) TOTAL CELLS COUNTED (test code = TCC) #CELLS SEGMENTED NEUTROPHILS (test code = SEG) % 39-69 LYMPHOCYTE (test code = LYMPH) % 25-55 MONOCYTE (test code = MON) % 0-10 EOSINOPHIL (test code = EOS) % 0.0-5.0 CABOT RINGS (test code = CAB) MORPHOLOGY COMMENT (test code = MOC) PLATELET ESTIMATE (test code = PLTEST) PLATELET MORPHOLOGY (test code = PLTMORPH) [id number] 21:04:00* Test Item Value Reference Range Interpretation Comments GLUBED (test code = GLUBED) 332 mg/dL 74-106 H Performed by certified shovel log loader operator at [facility] [id number] 16:13:00* Test Item Value Reference Range Interpretation Comments GLUBED (test code = GLUBED) 164 mg/dL 74-106 H Performed by certified shovel log loader operator at [facility] [id number] 11:48:00* Test Item Value Reference Range Interpretation Comments GLUBED (test code = GLUBED) 206 mg/dL 74-106 H Performed by certified shovel log loader operator at [facility] CBC W/AUTO [id number] 10:05:00* Test Item Value Reference Range Interpretation Comments WHITE BLOOD CELL (test code = WBC) 2.7 K/mm3 4.5-12.5 L RED BLOOD CELL (test code = RBC) 4.94 mill/mm3 3.7-5.2 N HEMOGLOBIN (test code = HGB) 13.5 gram/dL 11.5-15.5 N HEMATOCRIT (test code = HCT) 42.8 % 36.0-46.0 N MEAN CELL VOLUME (test code = MCV) 86.6 fL 80-98 N MEAN CELL HGB (test code = MCH) 27.3 picogram 27.0-33.0 N MEAN CELL HGB CONCETRATION (test code = MCHC) 31.5 gram/dL 33.0-36. 0 L RED CELL DISTRIBUTION WIDTH (test code = RDW) 14.6 % 11.6-16. 2 N RED CELL DISTRIBUTION WIDTH SD (test code = RDW-SD) 45.7 fL 37 .0-51.0 N PLATELET COUNT (test code = PLT) 26 K/mm3 150-450 LL Results called to [id number] by [email or web address] 04/11/19 0931Critical results verified and read back by Nurse? Y MEAN PLATELET VOLUME (test code = MPV) 13.6 fL 6.7-11.0 H NEUTROPHIL % (test code = NT%) 68.3 % 39.0-69.0 N IMMATURE GRANULOCYTE % (test code = IG%) 0.4 % 0.0-5.0 N LYMPHOCYTE % (test code = LY%) 24.7 % 25.0-55.0 L MONOCYTE % (test code = MO%) 5.5 % 0.0-10.0 N EOSINOPHIL % (test code = EO%) 1.1 % 0.0-5.0 N BASOPHIL % (test code = BA%) 0.0 % 0.0-1.0 N NUCLEATED RBC % (test code = NRBC%) 0.0 % 0-0 N NEUTROPHIL # (test code = NT#) 1.85 K/mm3 1.8-7.7 N IMMATURE GRANULOCYTE # (test code = IG#) 0.01 x10 3/uL 0-0.03 N LYMPHOCYTE # (test code = LY#) 0.67 K/mm3 1.0-5.0 L MONOCYTE # (test code = MO#) 0.15 K/mm3 0-0.8 N EOSINOPHIL # (test code = EO#) 0.03 K/mm3 0.0-0.5 N BASOPHIL # (test code = BA#) 0.00 K/mm3 0.0-0.2 N NUCLEATED RBC # (test code = NRBC#) 0.00 K/mm3 0.0-0.1 N MANUAL DIFF REQUIRED (test code = MDIFF) NO, ONLY SCAN NEEDED DIFFERENTIAL [id number] 10:05:00* Test Item Value Reference Range Interpretation Comments STAIN ACCEPTABILITY (test code = STN ACCEPTABLE) STAIN ACCEPTABLE PLATELET ESTIMATE (test code = PLTEST) DECREASED PLATELET MORPHOLOGY (test code = PLTMORPH) NORMAL PROTHROMBIN [id number] 09:34:00* Test Item Value Reference Range Interpretation Comments PROTHROMBIN TIME PATIENT (test code = PTP) 12.6 seconds 9.0-14.0 N INTERNATIONAL NORMAL RATIO (test code = INR) 1.1 0.8-1.2 N The therapeutic range for oral anticoagulant therapy formost indications is an international normalized ratio (INR)of between 2.0 and 3.0. The recommended therapeutic INRrange for various clinical situations is listed below: Clinical Situation INR range Pulmonary e mbolism treatment (2.0-3.0)Venous thrombosis treatmentVenous thrombosis prophylaxis (high risk surgery)Prevention of systemic embolism from: Acute myocardial infarction Valvular heart disease Atrial fibrillation Mechanical prosthetic heart valves (2.5-3.5) IS PATIENT ON ANTICOAGULANTS? NCBC W/AUTO [id number] 09:32:00* Test Item Value Reference Range Interpretation Comments WHITE BLOOD CELL (test code = WBC) 2.7 K/mm3 4.5-12.5 L RED BLOOD CELL (test code = RBC) 4.94 mill/mm3 3.7-5.2 N HEMOGLOBIN (test code = HGB) 13.5 gram/dL 11.5-15.5 N HEMATOCRIT (test code = HCT) 42.8 % 36.0-46.0 N MEAN CELL VOLUME (test code = MCV) 86.6 fL 80-98 N MEAN CELL HGB (test code = MCH) 27.3 picogram 27.0-33.0 N MEAN CELL HGB CONCETRATION (test code = MCHC) 31.5 gram/dL 33.0-36. 0 L RED CELL DISTRIBUTION WIDTH (test code = RDW) 14.6 % 11.6-16. 2 N RED CELL DISTRIBUTION WIDTH SD (test code = RDW-SD) 45.7 fL 37 .0-51.0 N PLATELET COUNT (test code = PLT) 26 K/mm3 150-450 LL Results called to [id number] by [email or web address] 04/11/19 [id number] results verified and read back by Nurse? Y MEAN PLATELET VOLUME (test code = MPV) 13.6 fL 6.7-11.0 H NEUTROPHIL % (test code = NT%) 68.3 % 39.0-69.0 N IMMATURE GRANULOCYTE % (test code = IG%) 0.4 % 0.0-5.0 N LYMPHOCYTE % (test code = LY%) 24.7 % 25.0-55.0 L MONOCYTE % (test code = MO%) 5.5 % 0.0-10.0 N EOSINOPHIL % (test code = EO%) 1.1 % 0.0-5.0 N BASOPHIL % (test code = BA%) 0.0 % 0.0-1.0 N NUCLEATED RBC % (test code = NRBC%) 0.0 % 0-0 N NEUTROPHIL # (test code = NT#) 1.85 K/mm3 1.8-7.7 N IMMATURE GRANULOCYTE # (test code = IG#) 0.01 x10 3/uL 0-0.03 N LYMPHOCYTE # (test code = LY#) 0.67 K/mm3 1.0-5.0 L MONOCYTE # (test code = MO#) 0.15 K/mm3 0-0.8 N EOSINOPHIL # (test code = EO#) 0.03 K/mm3 0.0-0.5 N BASOPHIL # (test code = BA#) 0.00 K/mm3 0.0-0.2 N NUCLEATED RBC # (test code = NRBC#) 0.00 K/mm3 0.0-0.1 N MANUAL DIFF REQUIRED (test code = MDIFF) NO, ONLY SCAN NEEDED DIFFERENTIAL [id number] 09:32:00* Test Item Value Reference Range Interpretation Comments STAIN ACCEPTABILITY (test code = STN ACCEPTABLE) CABOT RINGS (test code = CAB) MORPHOLOGY COMMENT (test code = MOC) PLATELET ESTIMATE (test code = PLTEST) PLATELET MORPHOLOGY (test code = PLTMORPH) CBC W/AUTO [id number] 09:32:00* Test Item Value Reference Range Interpretation Comments WHITE BLOOD CELL (test code = WBC) 2.7 K/mm3 4.5-12.5 L RED BLOOD CELL (test code = RBC) 4.94 mill/mm3 3.7-5.2 N HEMOGLOBIN (test code = HGB) 13.5 gram/dL 11.5-15.5 N HEMATOCRIT (test code = HCT) 42.8 % 36.0-46.0 N MEAN CELL VOLUME (test code = MCV) 86.6 fL 80-98 N MEAN CELL HGB (test code = MCH) 27.3 picogram 27.0-33.0 N MEAN CELL HGB CONCETRATION (test code = MCHC) 31.5 gram/dL 33.0-36. 0 L RED CELL DISTRIBUTION WIDTH (test code = RDW) 14.6 % 11.6-16. 2 N RED CELL DISTRIBUTION WIDTH SD (test code = RDW-SD) 45.7 fL 37 .0-51.0 N PLATELET COUNT (test code = PLT) 26 K/mm3 150-450 LL Results called to [id number] by SalmaLAB.HD1 04/11/19 0931Critical results verified and read back by Nurse? Y MEAN PLATELET VOLUME (test code = MPV) 13.6 fL 6.7-11.0 H NEUTROPHIL % (test code = NT%) 68.3 % 39.0-69.0 N IMMATURE GRANULOCYTE % (test code = IG%) 0.4 % 0.0-5.0 N LYMPHOCYTE % (test code = LY%) 24.7 % 25.0-55.0 L MONOCYTE % (test code = MO%) 5.5 % 0.0-10.0 N EOSINOPHIL % (test code = EO%) 1.1 % 0.0-5.0 N BASOPHIL % (test code = BA%) 0.0 % 0.0-1.0 N NUCLEATED RBC % (test code = NRBC%) 0.0 % 0-0 N NEUTROPHIL # (test code = NT#) 1.85 K/mm3 1.8-7.7 N IMMATURE GRANULOCYTE # (test code = IG#) 0.01 x10 3/uL 0-0.03 N LYMPHOCYTE # (test code = LY#) 0.67 K/mm3 1.0-5.0 L MONOCYTE # (test code = MO#) 0.15 K/mm3 0-0.8 N EOSINOPHIL # (test code = EO#) 0.03 K/mm3 0.0-0.5 N BASOPHIL # (test code = BA#) 0.00 K/mm3 0.0-0.2 N NUCLEATED RBC # (test code = NRBC#) 0.00 K/mm3 0.0-0.1 N MANUAL DIFF REQUIRED (test code = MDIFF) NO, ONLY SCAN NEEDED DIFFERENTIAL [id number] 09:32:00* Test Item Value Reference Range Interpretation Comments STAIN ACCEPTABILITY (test code = STN ACCEPTABLE) MORPHOLOGY COMMENT (test code = MOC) PLATELET ESTIMATE (test code = PLTEST) PLATELET MORPHOLOGY (test code = PLTMORPH) CBC W/AUTO [id number] 09:31:00* Test Item Value Reference Range Interpretation Comments WHITE BLOOD CELL (test code = WBC) 2.7 K/mm3 4.5-12.5 L RED BLOOD CELL (test code = RBC) 4.94 mill/mm3 3.7-5.2 N HEMOGLOBIN (test code = HGB) 13.5 gram/dL 11.5-15.5 N HEMATOCRIT (test code = HCT) 42.8 % 36.0-46.0 N MEAN CELL VOLUME (test code = MCV) 86.6 fL 80-98 N MEAN CELL HGB (test code = MCH) 27.3 picogram 27.0-33.0 N MEAN CELL HGB CONCETRATION (test code = MCHC) 31.5 gram/dL 33.0-36. 0 L RED CELL DISTRIBUTION WIDTH (test code = RDW) 14.6 % 11.6-16. 2 N RED CELL DISTRIBUTION WIDTH SD (test code = RDW-SD) 45.7 fL 37 .0-51.0 N PLATELET COUNT (test code = PLT) 26 K/mm3 150-450 LL Results called to [id number] by V.LAB.HD1 04/11/19 0931Critical results verified and read back by Nurse? Y MEAN PLATELET VOLUME (test code = MPV) 13.6 fL 6.7-11.0 H NEUTROPHIL % (test code = NT%) 68.3 % 39.0-69.0 N IMMATURE GRANULOCYTE % (test code = IG%) 0.4 % 0.0-5.0 N LYMPHOCYTE % (test code = LY%) 24.7 % 25.0-55.0 L MONOCYTE % (test code = MO%) 5.5 % 0.0-10.0 N EOSINOPHIL % (test code = EO%) 1.1 % 0.0-5.0 N BASOPHIL % (test code = BA%) 0.0 % 0.0-1.0 N NUCLEATED RBC % (test code = NRBC%) 0.0 % 0-0 N NEUTROPHIL # (test code = NT#) 1.85 K/mm3 1.8-7.7 N IMMATURE GRANULOCYTE # (test code = IG#) 0.01 x10 3/uL 0-0.03 N LYMPHOCYTE # (test code = LY#) 0.67 K/mm3 1.0-5.0 L MONOCYTE # (test code = MO#) 0.15 K/mm3 0-0.8 N EOSINOPHIL # (test code = EO#) 0.03 K/mm3 0.0-0.5 N BASOPHIL # (test code = BA#) 0.00 K/mm3 0.0-0.2 N NUCLEATED RBC # (test code = NRBC#) 0.00 K/mm3 0.0-0.1 N MANUAL DIFF REQUIRED (test code = MDIFF) NO, ONLY SCAN NEEDED DIFFERENTIAL [id number] 09:31:00* Test Item Value Reference Range Interpretation Comments STAIN ACCEPTABILITY (test code = STN ACCEPTABLE) CABOT RINGS (test code = CAB) MORPHOLOGY COMMENT (test code = MOC) PLATELET ESTIMATE (test code = PLTEST) PLATELET MORPHOLOGY (test code = PLTMORPH) CBC W/AUTO [id number] 09:31:00* Test Item Value Reference Range Interpretation Comments WHITE BLOOD CELL (test code = WBC) 2.7 K/mm3 4.5-12.5 L RED BLOOD CELL (test code = RBC) 4.94 mill/mm3 3.7-5.2 N HEMOGLOBIN (test code = HGB) 13.5 gram/dL 11.5-15.5 N HEMATOCRIT (test code = HCT) 42.8 % 36.0-46.0 N MEAN CELL VOLUME (test code = MCV) 86.6 fL 80-98 N MEAN CELL HGB (test code = MCH) 27.3 picogram 27.0-33.0 N MEAN CELL HGB CONCETRATION (test code = MCHC) 31.5 gram/dL 33.0-36. 0 L RED CELL DISTRIBUTION WIDTH (test code = RDW) 14.6 % 11.6-16. 2 N RED CELL DISTRIBUTION WIDTH SD (test code = RDW-SD) 45.7 fL 37 .0-51.0 N PLATELET COUNT (test code = PLT) 26 K/mm3 150-450 LL Results called to [id number] by SalmaLAB.HD1 04/11/19 0931Critical results verified and read back by Nurse? Y MEAN PLATELET VOLUME (test code = MPV) 13.6 fL 6.7-11.0 H NEUTROPHIL % (test code = NT%) 68.3 % 39.0-69.0 N IMMATURE GRANULOCYTE % (test code = IG%) 0.4 % 0.0-5.0 N LYMPHOCYTE % (test code = LY%) 24.7 % 25.0-55.0 L MONOCYTE % (test code = MO%) 5.5 % 0.0-10.0 N EOSINOPHIL % (test code = EO%) 1.1 % 0.0-5.0 N BASOPHIL % (test code = BA%) 0.0 % 0.0-1.0 N NUCLEATED RBC % (test code = NRBC%) 0.0 % 0-0 N NEUTROPHIL # (test code = NT#) 1.85 K/mm3 1.8-7.7 N IMMATURE GRANULOCYTE # (test code = IG#) 0.01 x10 3/uL 0-0.03 N LYMPHOCYTE # (test code = LY#) 0.67 K/mm3 1.0-5.0 L MONOCYTE # (test code = MO#) 0.15 K/mm3 0-0.8 N EOSINOPHIL # (test code = EO#) 0.03 K/mm3 0.0-0.5 N BASOPHIL # (test code = BA#) 0.00 K/mm3 0.0-0.2 N NUCLEATED RBC # (test code = NRBC#) 0.00 K/mm3 0.0-0.1 N MANUAL DIFF REQUIRED (test code = MDIFF) NO, ONLY SCAN NEEDED DIFFERENTIAL [id number] 09:31:00* Test Item Value Reference Range Interpretation Comments STAIN ACCEPTABILITY (test code = STN ACCEPTABLE) CABOT RINGS (test code = CAB) MORPHOLOGY COMMENT (test code = MOC) PLATELET ESTIMATE (test code = PLTEST) PLATELET MORPHOLOGY (test code = PLTMORPH) [id number] 08:11:00* Test Item Value Reference Range Interpretation Comments GLUBED (test code = GLUBED) 215 mg/dL 74-106 H Performed by certified shovel log loader operator at [facility] [id number] 20:28:00* Test Item Value Reference Range Interpretation Comments GLUBED (test code = GLUBED) 308 mg/dL 74-106 H Performed by certified shovel log loader operator at [facility] T4 [id number] 17:36:00* Test Item Value Reference Range Interpretation Comments T4 FREE (test code = T4F) 1.38 ng/dL 0.76-1.46 N THYROID STIMULATING [id number] 17:36:00* Test Item Value Reference Range Interpretation Comments THYROID STIMULATING HORMONE (test code = TSH) 1.380 uIU/mL 0.36-3.7 4 N TSH REFERENCE RANGES: EUTHYROID: 0.35 - 4.3 mIU/mL HYPO : > 5.5 mIU/mL HYPER : < 0.35 mIU/mL [id number] 16:53:00* Test Item Value Reference Range Interpretation Comments GLUBED (test code = GLUBED) 171 mg/dL 74-106 H Performed by certified shovel log loader operator at [facility] T4 [id number] 16:35:00* Test Item Value Reference Range Interpretation Comments T4 FREE (test code = T4F) ng/dL 0.76-1.46 THYROID STIMULATING [id number] 16:35:00* Test Item Value Reference Range Interpretation Comments THYROID STIMULATING HORMONE (test code = TSH) 1.380 uIU/mL 0.36-3.7 4 N TSH REFERENCE RANGES: EUTHYROID: 0.35 - 4.3 mIU/mL HYPO : > 5.5 mIU/mL HYPER : < 0.35 mIU/mL LACTIC DEHYDROGENASE(LDH)2019-04-10 12:01:00* Test Item Value Reference Range Interpretation Comments LACTIC DEHYDROGENASE(LDH) (test code = LDH) 256 IUnit/L 84-246 H FE W/TOTAL IRON BINDING CAP.2019-04-10 12:01:00* Test Item Value Reference Range Interpretation Comments SERUM IRON (test code = IRON) 140 ug/dL 50-175 N TOTAL IRON BINDING CAPACITY (test code = TIBC) 381 mcg/dL 250-450 N IRON SATURATION (test code = FESAT) 36.75 % 13-45 N VITAMIN [id number] 12:01:00* Test Item Value Reference Range Interpretation Comments VITAMIN B12 (test code = VITB12) 628 pg/mL 193-986 N FOLIC [id number] 12:01:00* Test Item Value Reference Range Interpretation Comments FOLIC ACID (test code = FOL) 16.1 ng/mL 3.10-17.50 N KAPPA LAMBDA [id number] 12:01:00* Test Item Value Reference Range Interpretation Comments KAPPA CHAINS (FLOW) (test code = KAPPA) LAMBDA CHAINS (FLOW) (test code = LAMBDA) KAPPA/LAMBDA RATIO (test code = ARELI/GERMAN) RATIO [id number] 12:01:00* Test Item Value Reference Range Interpretation Comments FERRITIN (test code = REYNA) 162 ng/mL 8-388 N [id number] 11:29:00* Test Item Value Reference Range Interpretation Comments GLUBED (test code = GLUBED) 237 mg/dL 74-106 H Performed by certified shovel log loader operator at [facility] CBC W/AUTO [id number] 08:18:00* Test Item Value Reference Range Interpretation Comments WHITE BLOOD CELL (test code = WBC) 4.2 K/mm3 4.5-12.5 L RED BLOOD CELL (test code = RBC) 4.65 mill/mm3 3.7-5.2 N HEMOGLOBIN (test code = HGB) 14.5 gram/dL 11.5-15.5 N HEMATOCRIT (test code = HCT) 40.8 % 36.0-46.0 N MEAN CELL VOLUME (test code = MCV) 87.7 fL 80-98 N MEAN CELL HGB (test code = MCH) 31.2 picogram 27.0-33.0 N MEAN CELL HGB CONCETRATION (test code = MCHC) 35.5 gram/dL 33.0-36. 0 N RED CELL DISTRIBUTION WIDTH (test code = RDW) 15.5 % 11.6-16. 2 N RED CELL DISTRIBUTION WIDTH SD (test code = RDW-SD) 45.2 fL 37 .0-51.0 N PLATELET COUNT (test code = PLT) 37 K/mm3 150-450 LL Results called to [id number] by LANDENJP1 04/10/19 0628Critical results verified and read back by Nurse? Y MEAN PLATELET VOLUME (test code = MPV) 12.6 fL 6.7-11.0 H NEUTROPHIL % (test code = NT%) 69.7 % 39.0-69.0 H IMMATURE GRANULOCYTE % (test code = IG%) 0.5 % 0.0-5.0 N LYMPHOCYTE % (test code = LY%) 23.1 % 25.0-55.0 L MONOCYTE % (test code = MO%) 5.5 % 0.0-10.0 N EOSINOPHIL % (test code = EO%) 1.2 % 0.0-5.0 N BASOPHIL % (test code = BA%) 0.0 % 0.0-1.0 N NUCLEATED RBC % (test code = NRBC%) 0.0 % 0-0 N NEUTROPHIL # (test code = NT#) 2.89 K/mm3 1.8-7.7 N IMMATURE GRANULOCYTE # (test code = IG#) 0.02 x10 3/uL 0-0.03 N LYMPHOCYTE # (test code = LY#) 0.96 K/mm3 1.0-5.0 L MONOCYTE # (test code = MO#) 0.23 K/mm3 0-0.8 N EOSINOPHIL # (test code = EO#) 0.05 K/mm3 0.0-0.5 N BASOPHIL # (test code = BA#) 0.00 K/mm3 0.0-0.2 N NUCLEATED RBC # (test code = NRBC#) 0.00 K/mm3 0.0-0.1 N MANUAL DIFF REQUIRED (test code = MDIFF) NO, ONLY SCAN NEEDED DIFFERENTIAL [id number] 08:18:00* Test Item Value Reference Range Interpretation Comments STAIN ACCEPTABILITY (test code = STN ACCEPTABLE) STAIN ACCEPTABLE PLATELET ESTIMATE (test code = PLTEST) DECREASED PLATELET MORPHOLOGY (test code = PLTMORPH) NORMAL [id number] 07:31:00* Test Item Value Reference Range Interpretation Comments GLUBED (test code = GLUBED) 294 mg/dL 74-106 H Performed by certified shovel log loader operator at [facility] COMPREHENSIVE METABOLIC [id number] 07:31:00* Test Item Value Reference Range Interpretation Comments SODIUM (test code = NA) 141 mmol/L 136-145 N POTASSIUM (test code = K) 4.6 mmol/L 3.5-5.1 N CHLORIDE (test code = CL) 108.0 mmol/L 98-107 H CARBON DIOXIDE (test code = CO2) 26.0 mmol/L 21-32 N ANION GAP (test code = GAP) 11.6 10-20 N GLUCOSE (test code = GLU) 333 mg/dL 74-106 H BLOOD UREA NITROGEN (test code = BUN) 22 mg/dL 7-18 H RESULT VERIFIED BY REPEAT ANALYSIS GLOMERULAR FILTRATION RATE (test code = GFR) > 60 mL/min >=60 Estimated GFR by using Modified MDRD formula.Chronic kidney disease is defined as either kidney damageor GFR <60 mL/min/1.73 m2 for >3 months. CREATININE (test code = CREAT) 0.70 mg/dL 0.55-1.02 N Note change in reference range due to change in reagent. BUN/CREATININE RATIO (test code = BUN/CREA) 31.4 10-20 H TOTAL PROTEIN (test code = PROT) 6.2 gram/dL 6.4-8.2 L ALBUMIN (test code = ALB) 2.8 g/dL 3.4-5.0 L GLOBULIN (test code = GLOB) 3.4 gram/dL 2.7-4.2 N ALBUMIN/GLOBULIN RATIO (test code = A/G) 0.8 0.75-1.50 N CALCIUM (test code = CA) 8.6 mg/dL 8.5-10.1 N BILIRUBIN TOTAL (test code = BILT) 0.90 mg/dL 0.0-1.0 N SGOT/AST (test code = AST) 45 IUnit/L 15-37 H SGPT/ALT (test code = ALT) 76 IUnit/L 12-78 N ALKALINE PHOSPHATASE TOTAL (test code = ALKP) 144 IUnit/L 45-117 H Note change in reference range due to change in reagent. [id number] 07:31:00* Test Item Value Reference Range Interpretation Comments LIPASE (test code = LIP) 340 U/L 73.0-393.0 N COMPREHENSIVE METABOLIC [id number] 06:56:00* Test Item Value Reference Range Interpretation Comments SODIUM (test code = NA) 141 mmol/L 136-145 N POTASSIUM (test code = K) 4.6 mmol/L 3.5-5.1 N CHLORIDE (test code = CL) 108.0 mmol/L 98-107 H CARBON DIOXIDE (test code = CO2) mmol/L 21-32 ANION GAP (test code = GAP) 10-20 GLUCOSE (test code = GLU) mg/dL 74-106 BLOOD UREA NITROGEN (test code = BUN) mg/dL 7-18 GLOMERULAR FILTRATION RATE (test code = GFR) mL/min >=60 CREATININE (test code = CREAT) mg/dL 0.55-1.02 BUN/CREATININE RATIO (test code = BUN/CREA) 10-20 TOTAL PROTEIN (test code = PROT) gram/dL 6.4-8.2 ALBUMIN (test code = ALB) g/dL 3.4-5.0 GLOBULIN (test code = GLOB) gram/dL 2.7-4.2 ALBUMIN/GLOBULIN RATIO (test code = A/G) 0.75-1.50 CALCIUM (test code = CA) mg/dL 8.5-10.1 BILIRUBIN TOTAL (test code = BILT) mg/dL 0.0-1.0 SGOT/AST (test code = AST) IUnit/L 15-37 SGPT/ALT (test code = ALT) IUnit/L 12-78 ALKALINE PHOSPHATASE TOTAL (test code = ALKP) IUnit/L 45-117 [id number] 06:56:00* Test Item Value Reference Range Interpretation Comments LIPASE (test code = LIP) U/L 73.0-393.0 [id number] 06:45:00* Test Item Value Reference Range Interpretation Comments GLYCOSYLATED HEMOGLOBIN (HA1C) (test code = GLYHGB) 9.8 % HbA1 SUGGESTED DIAGNOSIS: HbA1C (%) Diabetic >6.4Prediabetes 5.7 - 6.4Normal <5.7 ESTIMATED AVERAGE GLUCOSE (test code = EAG) 235 MG/DL CBC W/AUTO [id number] 06:28:00* Test Item Value Reference Range Interpretation Comments WHITE BLOOD CELL (test code = WBC) 4.2 K/mm3 4.5-12.5 L RED BLOOD CELL (test code = RBC) 4.65 mill/mm3 3.7-5.2 N HEMOGLOBIN (test code = HGB) 14.5 gram/dL 11.5-15.5 N HEMATOCRIT (test code = HCT) 40.8 % 36.0-46.0 N MEAN CELL VOLUME (test code = MCV) 87.7 fL 80-98 N MEAN CELL HGB (test code = MCH) 31.2 picogram 27.0-33.0 N MEAN CELL HGB CONCETRATION (test code = MCHC) 35.5 gram/dL 33.0-36. 0 N RED CELL DISTRIBUTION WIDTH (test code = RDW) 15.5 % 11.6-16. 2 N RED CELL DISTRIBUTION WIDTH SD (test code = RDW-SD) 45.2 fL 37 .0-51.0 N PLATELET COUNT (test code = PLT) 37 K/mm3 150-450 LL Results called to [id number] by JOSE1 04/10/19 0628Critical results verified and read back by Nurse? Y MEAN PLATELET VOLUME (test code = MPV) 12.6 fL 6.7-11.0 H NEUTROPHIL % (test code = NT%) 69.7 % 39.0-69.0 H IMMATURE GRANULOCYTE % (test code = IG%) 0.5 % 0.0-5.0 N LYMPHOCYTE % (test code = LY%) 23.1 % 25.0-55.0 L MONOCYTE % (test code = MO%) 5.5 % 0.0-10.0 N EOSINOPHIL % (test code = EO%) 1.2 % 0.0-5.0 N BASOPHIL % (test code = BA%) 0.0 % 0.0-1.0 N NUCLEATED RBC % (test code = NRBC%) 0.0 % 0-0 N NEUTROPHIL # (test code = NT#) 2.89 K/mm3 1.8-7.7 N IMMATURE GRANULOCYTE # (test code = IG#) 0.02 x10 3/uL 0-0.03 N LYMPHOCYTE # (test code = LY#) 0.96 K/mm3 1.0-5.0 L MONOCYTE # (test code = MO#) 0.23 K/mm3 0-0.8 N EOSINOPHIL # (test code = EO#) 0.05 K/mm3 0.0-0.5 N BASOPHIL # (test code = BA#) 0.00 K/mm3 0.0-0.2 N NUCLEATED RBC # (test code = NRBC#) 0.00 K/mm3 0.0-0.1 N MANUAL DIFF REQUIRED (test code = MDIFF) NO, ONLY SCAN NEEDED DIFFERENTIAL [id number] 06:28:00* Test Item Value Reference Range Interpretation Comments STAIN ACCEPTABILITY (test code = STN ACCEPTABLE) CABOT RINGS (test code = CAB) MORPHOLOGY COMMENT (test code = MOC) PLATELET ESTIMATE (test code = PLTEST) PLATELET MORPHOLOGY (test code = PLTMORPH) CBC W/AUTO [id number] 06:28:00* Test Item Value Reference Range Interpretation Comments WHITE BLOOD CELL (test code = WBC) 4.2 K/mm3 4.5-12.5 L RED BLOOD CELL (test code = RBC) 4.65 mill/mm3 3.7-5.2 N HEMOGLOBIN (test code = HGB) 14.5 gram/dL 11.5-15.5 N HEMATOCRIT (test code = HCT) 40.8 % 36.0-46.0 N MEAN CELL VOLUME (test code = MCV) 87.7 fL 80-98 N MEAN CELL HGB (test code = MCH) 31.2 picogram 27.0-33.0 N MEAN CELL HGB CONCETRATION (test code = MCHC) 35.5 gram/dL 33.0-36. 0 N RED CELL DISTRIBUTION WIDTH (test code = RDW) 15.5 % 11.6-16. 2 N RED CELL DISTRIBUTION WIDTH SD (test code = RDW-SD) 45.2 fL 37 .0-51.0 N PLATELET COUNT (test code = PLT) 37 K/mm3 150-450 LL Results called to [id number] by GIFTY.SANJUANITA1 04/10/19 0628Critical results verified and read back by Nurse? Y MEAN PLATELET VOLUME (test code = MPV) 12.6 fL 6.7-11.0 H NEUTROPHIL % (test code = NT%) 69.7 % 39.0-69.0 H IMMATURE GRANULOCYTE % (test code = IG%) 0.5 % 0.0-5.0 N LYMPHOCYTE % (test code = LY%) 23.1 % 25.0-55.0 L MONOCYTE % (test code = MO%) 5.5 % 0.0-10.0 N EOSINOPHIL % (test code = EO%) 1.2 % 0.0-5.0 N BASOPHIL % (test code = BA%) 0.0 % 0.0-1.0 N NUCLEATED RBC % (test code = NRBC%) 0.0 % 0-0 N NEUTROPHIL # (test code = NT#) 2.89 K/mm3 1.8-7.7 N IMMATURE GRANULOCYTE # (test code = IG#) 0.02 x10 3/uL 0-0.03 N LYMPHOCYTE # (test code = LY#) 0.96 K/mm3 1.0-5.0 L MONOCYTE # (test code = MO#) 0.23 K/mm3 0-0.8 N EOSINOPHIL # (test code = EO#) 0.05 K/mm3 0.0-0.5 N BASOPHIL # (test code = BA#) 0.00 K/mm3 0.0-0.2 N NUCLEATED RBC # (test code = NRBC#) 0.00 K/mm3 0.0-0.1 N MANUAL DIFF REQUIRED (test code = MDIFF) NO, ONLY SCAN NEEDED DIFFERENTIAL [id number] 06:28:00* Test Item Value Reference Range Interpretation Comments STAIN ACCEPTABILITY (test code = STN ACCEPTABLE) CABOT RINGS (test code = CAB) MORPHOLOGY COMMENT (test code = MOC) PLATELET ESTIMATE (test code = PLTEST) PLATELET MORPHOLOGY (test code = PLTMORPH) CBC W/AUTO [id number] 06:28:00* Test Item Value Reference Range Interpretation Comments WHITE BLOOD CELL (test code = WBC) 4.2 K/mm3 4.5-12.5 L RED BLOOD CELL (test code = RBC) 4.65 mill/mm3 3.7-5.2 N HEMOGLOBIN (test code = HGB) 14.5 gram/dL 11.5-15.5 N HEMATOCRIT (test code = HCT) 40.8 % 36.0-46.0 N MEAN CELL VOLUME (test code = MCV) 87.7 fL 80-98 N MEAN CELL HGB (test code = MCH) 31.2 picogram 27.0-33.0 N MEAN CELL HGB CONCETRATION (test code = MCHC) 35.5 gram/dL 33.0-36. 0 N RED CELL DISTRIBUTION WIDTH (test code = RDW) 15.5 % 11.6-16. 2 N RED CELL DISTRIBUTION WIDTH SD (test code = RDW-SD) 45.2 fL 37 .0-51.0 N PLATELET COUNT (test code = PLT) 37 K/mm3 150-450 LL Results called to [id number] by LANDENJP1 04/10/19 0628Critical results verified and read back by Nurse? Y MEAN PLATELET VOLUME (test code = MPV) 12.6 fL 6.7-11.0 H NEUTROPHIL % (test code = NT%) 69.7 % 39.0-69.0 H IMMATURE GRANULOCYTE % (test code = IG%) 0.5 % 0.0-5.0 N LYMPHOCYTE % (test code = LY%) 23.1 % 25.0-55.0 L MONOCYTE % (test code = MO%) 5.5 % 0.0-10.0 N EOSINOPHIL % (test code = EO%) 1.2 % 0.0-5.0 N BASOPHIL % (test code = BA%) 0.0 % 0.0-1.0 N NUCLEATED RBC % (test code = NRBC%) 0.0 % 0-0 N NEUTROPHIL # (test code = NT#) 2.89 K/mm3 1.8-7.7 N IMMATURE GRANULOCYTE # (test code = IG#) 0.02 x10 3/uL 0-0.03 N LYMPHOCYTE # (test code = LY#) 0.96 K/mm3 1.0-5.0 L MONOCYTE # (test code = MO#) 0.23 K/mm3 0-0.8 N EOSINOPHIL # (test code = EO#) 0.05 K/mm3 0.0-0.5 N BASOPHIL # (test code = BA#) 0.00 K/mm3 0.0-0.2 N NUCLEATED RBC # (test code = NRBC#) 0.00 K/mm3 0.0-0.1 N MANUAL DIFF REQUIRED (test code = MDIFF) NO, ONLY SCAN NEEDED DIFFERENTIAL [id number] 06:28:00* Test Item Value Reference Range Interpretation Comments STAIN ACCEPTABILITY (test code = STN ACCEPTABLE) MORPHOLOGY COMMENT (test code = MOC) PLATELET ESTIMATE (test code = PLTEST) PLATELET MORPHOLOGY (test code = PLTMORPH) CBC W/AUTO [id number] 06:28:00* Test Item Value Reference Range Interpretation Comments WHITE BLOOD CELL (test code = WBC) 4.2 K/mm3 4.5-12.5 L RED BLOOD CELL (test code = RBC) 4.65 mill/mm3 3.7-5.2 N HEMOGLOBIN (test code = HGB) 14.5 gram/dL 11.5-15.5 N HEMATOCRIT (test code = HCT) 40.8 % 36.0-46.0 N MEAN CELL VOLUME (test code = MCV) 87.7 fL 80-98 N MEAN CELL HGB (test code = MCH) 31.2 picogram 27.0-33.0 N MEAN CELL HGB CONCETRATION (test code = MCHC) 35.5 gram/dL 33.0-36. 0 N RED CELL DISTRIBUTION WIDTH (test code = RDW) 15.5 % 11.6-16. 2 N RED CELL DISTRIBUTION WIDTH SD (test code = RDW-SD) 45.2 fL 37 .0-51.0 N PLATELET COUNT (test code = PLT) 37 K/mm3 150-450 LL Results called to [id number] by [email or web address] 04/10/19 0628Critical results verified and read back by Nurse? Y MEAN PLATELET VOLUME (test code = MPV) 12.6 fL 6.7-11.0 H NEUTROPHIL % (test code = NT%) 69.7 % 39.0-69.0 H IMMATURE GRANULOCYTE % (test code = IG%) 0.5 % 0.0-5.0 N LYMPHOCYTE % (test code = LY%) 23.1 % 25.0-55.0 L MONOCYTE % (test code = MO%) 5.5 % 0.0-10.0 N EOSINOPHIL % (test code = EO%) 1.2 % 0.0-5.0 N BASOPHIL % (test code = BA%) 0.0 % 0.0-1.0 N NUCLEATED RBC % (test code = NRBC%) 0.0 % 0-0 N NEUTROPHIL # (test code = NT#) 2.89 K/mm3 1.8-7.7 N IMMATURE GRANULOCYTE # (test code = IG#) 0.02 x10 3/uL 0-0.03 N LYMPHOCYTE # (test code = LY#) 0.96 K/mm3 1.0-5.0 L MONOCYTE # (test code = MO#) 0.23 K/mm3 0-0.8 N EOSINOPHIL # (test code = EO#) 0.05 K/mm3 0.0-0.5 N BASOPHIL # (test code = BA#) 0.00 K/mm3 0.0-0.2 N NUCLEATED RBC # (test code = NRBC#) 0.00 K/mm3 0.0-0.1 N MANUAL DIFF REQUIRED (test code = MDIFF) NO, ONLY SCAN NEEDED DIFFERENTIAL [id number] 06:28:00* Test Item Value Reference Range Interpretation Comments STAIN ACCEPTABILITY (test code = STN ACCEPTABLE) CABOT RINGS (test code = CAB) MORPHOLOGY COMMENT (test code = MOC) PLATELET ESTIMATE (test code = PLTEST) PLATELET MORPHOLOGY (test code = PLTMORPH) - US ABDOMEN [id number] 15:13:00 Name: WANDA [facility]ILLASENOR [facility] : 1950 Age[facility]S: 68 [facility] [address] [facility]: [id number] Loc: [place] [address] Phys: Caden Meza MD Acct: [id number] Dis Date: Status: REG ER PHONE #: [phone] Exam Date: 04/09/2019 6625 FAX #: [phone] Reason: UPPER ABD PAIN EXAMS: CPT CODE: [id number] US ABDOMEN LTD [id number] REASON FOR EXAM: UPPER ABD PAIN EXAM ORDER DATE: 04/09/2019 1:06 PM Ordering: Caden Meza MD Attending:Caden Meza MD Location:[facility] PROCEDURE: - US ABDOMEN LTD FINDINGS: The liver is unremarkable. There is no evidence of focal mass identified. The pancreas is within normal limits. The right kidney measures 9.3 x 5.8 cm. There is no evidence of hydronephrosis. There is no evidence of nephrolithiasis. There is no evidence of renal mass. The gallbladder is unremarkable without evidence of gall stone. Minimal gallbladder wall thickening The common bile duct measures 0.3 cm. There is no evidence of ascites. The aorta and IVC are within normal limits. The portal vein is patent with hepatopetal flow IMPRESSION: Minimal gallbladder wall thickening. No evidence of gallstone. The technologist reported positive Lord's sign. Cannot rule out acalculous cholecystitis. Recommend clinical correlation. at 1513 Reported and signed by: Juancarlos Mcpherson M.D. CC: Caden Meza MD; Bin Stovall MD Technologist: ERIS RODRIGUEZ RT(R),RDMS Trnscb Date/Time: 04/09/2019 (1512) [email or web address] Orig Print D/T: S: 04/09/2019 (1515) Probe: PAGE 1 Signed Report URINALYSIS [id number] 13:25:00* Test Item Value Reference Range Interpretation Comments UA COLOR (test code = COLU) YELLOW YELLOW UA APPEARANCE (test code = APPU) CLEAR CLEAR UA GLUCOSE DIPSTICK (test code = DGLUU) >1000 (4+) mg/dL NEGATIVE UA BILIRUBIN DIPSTICK (test code = BILU) NEGATIVE mg/dL NEGATIVE UA KETONE DIPSTICK (test code = KETU) NEGATIVE mg/dL NEGATIVE UA SPECIFIC GRAVITY (test code = SGU) 1.039 1.001-1.035 UA BLOOD DIPSTICK (test code = MARIE) Negative mg/dL NEGATIVE UA PH DIPSTICK (test code = LATESHA) 5.5 5.0-8.0 UA PROTEIN DIPSTICK (test code = PROU) NEGATIVE mg/dL NEGATIVE UA UROBILINIOGEN DIPSTICK (test code = URO) Normal mg/dL NEGATIVE UA NITRITE DIPSTICK (test code = JON) NEGATIVE NEGATIVE UA LEUKOCYTE ESTERASE W REFLEX (test code = LEUUR) NEGATIVE Cecile/uL NEGATIVE UA WBC (test code = WBCU) 0-5 per HPF 0-5 UA RBC (test code = RBCU) 0-2 #/HPF 0-5 UA EPITHELIAL CELLS (test code = EPIU) FEW per HPF FEW UA BACTERIA (test code = BACU) FEW #/HPF NONE A UA HYALINE CAST (test code = HYALU) 3-5 #/LPF 0-5 UA MUCUS (test code = MUCU) FEW #/LPF FEW Urine Source? Clean CatchCBC W/O [id number] 13:24:00* Test Item Value Reference Range Interpretation Comments WHITE BLOOD CELL (test code = WBC) 3.8 K/mm3 4.5-12.5 L RED BLOOD CELL (test code = RBC) 5.18 mill/mm3 3.7-5.2 N HEMOGLOBIN (test code = HGB) 14.2 gram/dL 11.5-15.5 N HEMATOCRIT (test code = HCT) 44.1 % 36.0-46.0 N MEAN CELL VOLUME (test code = MCV) 85.1 fL 80-98 N MEAN CELL HGB (test code = MCH) 27.4 picogram 27.0-33.0 N MEAN CELL HGB CONCETRATION (test code = MCHC) 32.2 gram/dL 33.0-36. 0 L RED CELL DISTRIBUTION WIDTH (test code = RDW) 14.4 % 11.6-16. 2 N PLATELET COUNT (test code = PLT) 36 K/mm3 150-450 LL Results called to by [facility] 04/09/19 1255Critical results verified and read back by Nurse? Results called to [id number] by [facility] 04/09/19 1258Critical results verified and read back by Nurse? Y MEAN PLATELET VOLUME (test code = MPV) 12.8 fL 6.7-11.0 H DIFFERENTIAL [id number] 13:24:00* Test Item Value Reference Range Interpretation Comments STAIN ACCEPTABILITY (test code = STN ACCEPTABLE) STAIN ACCEPTABLE MORPHOLOGY COMMENT (test code = MOC) NORMAL PLATELET ESTIMATE (test code = PLTEST) DECREASED PLATELET MORPHOLOGY (test code = PLTMORPH) NORMAL BASIC METABOLIC [id number] 13:07:00* Test Item Value Reference Range Interpretation Comments SODIUM (test code = NA) 140 mmol/L 136-145 N POTASSIUM (test code = K) 3.8 mmol/L 3.5-5.1 N CHLORIDE (test code = CL) 104.0 mmol/L 98-107 N CARBON DIOXIDE (test code = CO2) 31.0 mmol/L 21-32 N ANION GAP (test code = GAP) 8.8 10-20 L GLUCOSE (test code = GLU) 320 mg/dL 74-106 H BLOOD UREA NITROGEN (test code = BUN) 17 mg/dL 7-18 N GLOMERULAR FILTRATION RATE (test code = GFR) > 60 mL/min >=60 Estimated GFR by using Modified MDRD formula.Chronic kidney disease is defined as either kidney damageor GFR <60 mL/min/1.73 m2 for >3 months. CREATININE (test code = CREAT) 0.80 mg/dL 0.55-1.02 N Note change in reference range due to change in reagent. BUN/CREATININE RATIO (test code = BUN/CREA) 21.3 10-20 H CALCIUM (test code = CA) 9.2 mg/dL 8.5-10.1 N HEPATIC FUNCTION [id number] 13:07:00* Test Item Value Reference Range Interpretation Comments TOTAL PROTEIN (test code = PROT) 6.7 gram/dL 6.4-8.2 N ALBUMIN (test code = ALB) 2.9 g/dL 3.4-5.0 L GLOBULIN (test code = GLOB) 3.8 gram/dL 2.7-4.2 N ALBUMIN/GLOBULIN RATIO (test code = A/G) 0.8 0.75-1.50 N BILIRUBIN TOTAL (test code = BILT) 0.70 mg/dL 0.0-1.0 N BILIRUBIN DIRECT (test code = BILD) 0.27 mg/dL 0.0-0.20 H SGOT/AST (test code = AST) 43 IUnit/L 15-37 H SGPT/ALT (test code = ALT) 81 IUnit/L 12-78 H ALKALINE PHOSPHATASE TOTAL (test code = ALKP) 151 IUnit/L 45-117 H Note change in reference range due to change in reagent. [id number] 13:07:00* Test Item Value Reference Range Interpretation Comments LIPASE (test code = LIP) 237 U/L 73.0-393.0 N BASIC METABOLIC [id number] 13:05:00* Test Item Value Reference Range Interpretation Comments SODIUM (test code = NA) 140 mmol/L 136-145 N POTASSIUM (test code = K) 3.8 mmol/L 3.5-5.1 N CHLORIDE (test code = CL) 104.0 mmol/L 98-107 N CARBON DIOXIDE (test code = CO2) mmol/L 21-32 ANION GAP (test code = GAP) 10-20 GLUCOSE (test code = GLU) mg/dL 74-106 BLOOD UREA NITROGEN (test code = BUN) mg/dL 7-18 GLOMERULAR FILTRATION RATE (test code = GFR) mL/min >=60 CREATININE (test code = CREAT) mg/dL 0.55-1.02 BUN/CREATININE RATIO (test code = BUN/CREA) 10-20 CALCIUM (test code = CA) mg/dL 8.5-10.1 HEPATIC FUNCTION [id number] 13:05:00* Test Item Value Reference Range Interpretation Comments TOTAL PROTEIN (test code = PROT) gram/dL 6.4-8.2 ALBUMIN (test code = ALB) g/dL 3.4-5.0 GLOBULIN (test code = GLOB) gram/dL 2.7-4.2 ALBUMIN/GLOBULIN RATIO (test code = A/G) 0.75-1.50 BILIRUBIN TOTAL (test code = BILT) mg/dL 0.0-1.0 BILIRUBIN DIRECT (test code = BILD) mg/dL 0.0-0.20 SGOT/AST (test code = AST) IUnit/L 15-37 SGPT/ALT (test code = ALT) IUnit/L 12-78 ALKALINE PHOSPHATASE TOTAL (test code = ALKP) IUnit/L 45-117 [id number] 13:05:00* Test Item Value Reference Range Interpretation Comments LIPASE (test code = LIP) U/L 73.0-393.0 CBC W/O [id number] 13:01:00* Test Item Value Reference Range Interpretation Comments WHITE BLOOD CELL (test code = WBC) 3.8 K/mm3 4.5-12.5 L RED BLOOD CELL (test code = RBC) 5.18 mill/mm3 3.7-5.2 N HEMOGLOBIN (test code = HGB) 14.2 gram/dL 11.5-15.5 N HEMATOCRIT (test code = HCT) 44.1 % 36.0-46.0 N MEAN CELL VOLUME (test code = MCV) 85.1 fL 80-98 N MEAN CELL HGB (test code = MCH) 27.4 picogram 27.0-33.0 N MEAN CELL HGB CONCETRATION (test code = MCHC) 32.2 gram/dL 33.0-36. 0 L RED CELL DISTRIBUTION WIDTH (test code = RDW) 14.4 % 11.6-16. 2 N PLATELET COUNT (test code = PLT) 36 K/mm3 150-450 LL Results called to by [employer]ILK[facility] 04/09/19 1255Critical results verified and read back by Nurse? Results called to [id number] by [employer] 04/09/19 1258Critical results verified and read back by Nurse? Y MEAN PLATELET VOLUME (test code = MPV) 12.8 fL 6.7-11.0 H DIFFERENTIAL [id number] 13:01:00* Test Item Value Reference Range Interpretation Comments STAIN ACCEPTABILITY (test code = STN ACCEPTABLE) CABOT RINGS (test code = CAB) MORPHOLOGY COMMENT (test code = MOC) PLATELET ESTIMATE (test code = PLTEST) PLATELET MORPHOLOGY (test code = PLTMORPH) CBC W/O [id number] 13:01:00* Test Item Value Reference Range Interpretation Comments WHITE BLOOD CELL (test code = WBC) 3.8 K/mm3 4.5-12.5 L RED BLOOD CELL (test code = RBC) 5.18 mill/mm3 3.7-5.2 N HEMOGLOBIN (test code = HGB) 14.2 gram/dL 11.5-15.5 N HEMATOCRIT (test code = HCT) 44.1 % 36.0-46.0 N MEAN CELL VOLUME (test code = MCV) 85.1 fL 80-98 N MEAN CELL HGB (test code = MCH) 27.4 picogram 27.0-33.0 N MEAN CELL HGB CONCETRATION (test code = MCHC) 32.2 gram/dL 33.0-36. 0 L RED CELL DISTRIBUTION WIDTH (test code = RDW) 14.4 % 11.6-16. 2 N PLATELET COUNT (test code = PLT) 36 K/mm3 150-450 LL Results called to by [employer]WILKINS 04/09/19 1255Critical results verified and read back by Nurse? Results called to [id number] by [employer] 04/09/19 1258Critical results verified and read back by Nurse? Y MEAN PLATELET VOLUME (test code = MPV) 12.8 fL 6.7-11.0 H DIFFERENTIAL [id number] 13:01:00* Test Item Value Reference Range Interpretation Comments STAIN ACCEPTABILITY (test code = STN ACCEPTABLE) MORPHOLOGY COMMENT (test code = MOC) PLATELET ESTIMATE (test code = PLTEST) PLATELET MORPHOLOGY (test code = PLTMORPH) CBC W/O [id number] 13:00:00* Test Item Value Reference Range Interpretation Comments WHITE BLOOD CELL (test code = WBC) 3.8 K/mm3 4.5-12.5 L RED BLOOD CELL (test code = RBC) 5.18 mill/mm3 3.7-5.2 N HEMOGLOBIN (test code = HGB) 14.2 gram/dL 11.5-15.5 N HEMATOCRIT (test code = HCT) 44.1 % 36.0-46.0 N MEAN CELL VOLUME (test code = MCV) 85.1 fL 80-98 N MEAN CELL HGB (test code = MCH) 27.4 picogram 27.0-33.0 N MEAN CELL HGB CONCETRATION (test code = MCHC) 32.2 gram/dL 33.0-36. 0 L RED CELL DISTRIBUTION WIDTH (test code = RDW) 14.4 % 11.6-16. 2 N PLATELET COUNT (test code = PLT) 36 K/mm3 150-450 LL Results called to by [facility] 04/09/19 1255Critical results verified and read back by Nurse? Results called to [id number] by [facility] 04/09/19 1258Critical results verified and read back by Nurse? Y MEAN PLATELET VOLUME (test code = MPV) 12.8 fL 6.7-11.0 H DIFFERENTIAL [id number] 13:00:00* Test Item Value Reference Range Interpretation Comments STAIN ACCEPTABILITY (test code = STN ACCEPTABLE) CABOT RINGS (test code = CAB) MORPHOLOGY COMMENT (test code = MOC) PLATELET ESTIMATE (test code = PLTEST) PLATELET MORPHOLOGY (test code = PLTMORPH) CBC W/O [id number] 12:58:00* Test Item Value Reference Range Interpretation Comments WHITE BLOOD CELL (test code = WBC) 3.8 K/mm3 4.5-12.5 L RED BLOOD CELL (test code = RBC) 5.18 mill/mm3 3.7-5.2 N HEMOGLOBIN (test code = HGB) 14.2 gram/dL 11.5-15.5 N HEMATOCRIT (test code = HCT) 44.1 % 36.0-46.0 N MEAN CELL VOLUME (test code = MCV) 85.1 fL 80-98 N MEAN CELL HGB (test code = MCH) 27.4 picogram 27.0-33.0 N MEAN CELL HGB CONCETRATION (test code = MCHC) 32.2 gram/dL 33.0-36. 0 L RED CELL DISTRIBUTION WIDTH (test code = RDW) 14.4 % 11.6-16. 2 N PLATELET COUNT (test code = PLT) 36 K/mm3 150-450 LL Results called to by [facility]KINS 04/09/19 1255Critical results verified and read back by Nurse? Results called to [id number] by [facility] 04/09/19 1258Critical results verified and read back by Nurse? Y MEAN PLATELET VOLUME (test code = MPV) 12.8 fL 6.7-11.0 H [id number] 11:33:00* Test Item Value Reference Range Interpretation Comments GLUBED (test code = GLUBED) 108 mg/dL 74-106 H Performed by certified shovel log loader operator at [facility] [id number] 07:35:00* Test Item Value Reference Range Interpretation Comments GLUBED (test code = GLUBED) 115 mg/dL 74-106 H Performed by certified shovel log loader operator at [facility] CBC W/AUTO [id number] 06:49:00* Test Item Value Reference Range Interpretation Comments WHITE BLOOD CELL (test code = WBC) 2.5 K/mm3 4.5-12.5 L RED BLOOD CELL (test code = RBC) 3.36 mill/mm3 3.7-5.2 L HEMOGLOBIN (test code = HGB) 11.8 gram/dL 11.5-15.5 N HEMATOCRIT (test code = HCT) 30.0 % 36.0-46.0 L MEAN CELL VOLUME (test code = MCV) 89.3 fL 80-98 N MEAN CELL HGB (test code = MCH) 35.1 picogram 27.0-33.0 H MEAN CELL HGB CONCETRATION (test code = MCHC) 39.3 gram/dL 33.0-36. 0 H RED CELL DISTRIBUTION WIDTH (test code = RDW) 14.9 % 11.6-16. 2 N RED CELL DISTRIBUTION WIDTH SD (test code = RDW-SD) 46.9 fL 37 .0-51.0 N PLATELET COUNT (test code = PLT) 57 K/mm3 150-450 L MEAN PLATELET VOLUME (test code = MPV) 11.6 fL 6.7-11.0 H NEUTROPHIL % (test code = NT%) 55.7 % 39.0-69.0 N IMMATURE GRANULOCYTE % (test code = IG%) 0.4 % 0.0-5.0 N LYMPHOCYTE % (test code = LY%) 33.5 % 25.0-55.0 N MONOCYTE % (test code = MO%) 8.0 % 0.0-10.0 N EOSINOPHIL % (test code = EO%) 2.4 % 0.0-5.0 N BASOPHIL % (test code = BA%) 0.0 % 0.0-1.0 N NUCLEATED RBC % (test code = NRBC%) 0.0 % 0-0 N NEUTROPHIL # (test code = NT#) 1.40 K/mm3 1.8-7.7 L IMMATURE GRANULOCYTE # (test code = IG#) 0.01 x10 3/uL 0-0.03 N LYMPHOCYTE # (test code = LY#) 0.84 K/mm3 1.0-5.0 L MONOCYTE # (test code = MO#) 0.20 K/mm3 0-0.8 N EOSINOPHIL # (test code = EO#) 0.06 K/mm3 0.0-0.5 N BASOPHIL # (test code = BA#) 0.00 K/mm3 0.0-0.2 N NUCLEATED RBC # (test code = NRBC#) 0.00 K/mm3 0.0-0.1 N MANUAL DIFF REQUIRED (test code = MDIFF) NO, ONLY SCAN NEEDED DIFFERENTIAL [id number] 06:49:00* Test Item Value Reference Range Interpretation Comments STAIN ACCEPTABILITY (test code = STN ACCEPTABLE) STAIN ACCEPTABLE MORPHOLOGY COMMENT (test code = MOC) NORMAL PLATELET ESTIMATE (test code = PLTEST) DECREASED PLATELET MORPHOLOGY (test code = PLTMORPH) NORMAL COMPREHENSIVE METABOLIC [id number] 05:36:00* Test Item Value Reference Range Interpretation Comments SODIUM (test code = NA) 143 mmol/L 136-145 N POTASSIUM (test code = K) 4.1 mmol/L 3.5-5.1 N CHLORIDE (test code = CL) 108.0 mmol/L 98-107 H CARBON DIOXIDE (test code = CO2) 31.0 mmol/L 21-32 N ANION GAP (test code = GAP) 8.1 10-20 L GLUCOSE (test code = GLU) 124 mg/dL 74-106 H BLOOD UREA NITROGEN (test code = BUN) 14 mg/dL 7-18 N GLOMERULAR FILTRATION RATE (test code = GFR) > 60 mL/min >=60 Estimated GFR by using Modified MDRD formula.Chronic kidney disease is defined as either kidney damageor GFR <60 mL/min/1.73 m2 for >3 months. CREATININE (test code = CREAT) 0.60 mg/dL 0.55-1.02 N Note change in reference range due to change in reagent. BUN/CREATININE RATIO (test code = BUN/CREA) 21.6 10-20 H TOTAL PROTEIN (test code = PROT) 6.9 gram/dL 6.4-8.2 N ALBUMIN (test code = ALB) 3.1 g/dL 3.4-5.0 L GLOBULIN (test code = GLOB) 3.8 gram/dL 2.7-4.2 N ALBUMIN/GLOBULIN RATIO (test code = A/G) 0.8 0.75-1.50 N CALCIUM (test code = CA) 8.9 mg/dL 8.5-10.1 N BILIRUBIN TOTAL (test code = BILT) 0.50 mg/dL 0.0-1.0 N SGOT/AST (test code = AST) 41 IUnit/L 15-37 H SGPT/ALT (test code = ALT) 28 IUnit/L 12-78 N ALKALINE PHOSPHATASE TOTAL (test code = ALKP) 165 IUnit/L 45-117 H Note change in reference range due to change in reagent. COMPREHENSIVE METABOLIC [id number] 05:16:00* Test Item Value Reference Range Interpretation Comments SODIUM (test code = NA) 143 mmol/L 136-145 N POTASSIUM (test code = K) 4.1 mmol/L 3.5-5.1 N CHLORIDE (test code = CL) 108.0 mmol/L 98-107 H CARBON DIOXIDE (test code = CO2) mmol/L 21-32 ANION GAP (test code = GAP) 10-20 GLUCOSE (test code = GLU) mg/dL 74-106 BLOOD UREA NITROGEN (test code = BUN) mg/dL 7-18 GLOMERULAR FILTRATION RATE (test code = GFR) mL/min >=60 CREATININE (test code = CREAT) mg/dL 0.55-1.02 BUN/CREATININE RATIO (test code = BUN/CREA) 10-20 TOTAL PROTEIN (test code = PROT) gram/dL 6.4-8.2 ALBUMIN (test code = ALB) g/dL 3.4-5.0 GLOBULIN (test code = GLOB) gram/dL 2.7-4.2 ALBUMIN/GLOBULIN RATIO (test code = A/G) 0.75-1.50 CALCIUM (test code = CA) mg/dL 8.5-10.1 BILIRUBIN TOTAL (test code = BILT) mg/dL 0.0-1.0 SGOT/AST (test code = AST) IUnit/L 15-37 SGPT/ALT (test code = ALT) IUnit/L 12-78 ALKALINE PHOSPHATASE TOTAL (test code = ALKP) IUnit/L 45-117 CBC W/AUTO [id number] 05:10:00* Test Item Value Reference Range Interpretation Comments WHITE BLOOD CELL (test code = WBC) 2.5 K/mm3 4.5-12.5 L RED BLOOD CELL (test code = RBC) 3.36 mill/mm3 3.7-5.2 L HEMOGLOBIN (test code = HGB) 11.8 gram/dL 11.5-15.5 N HEMATOCRIT (test code = HCT) 30.0 % 36.0-46.0 L MEAN CELL VOLUME (test code = MCV) 89.3 fL 80-98 N MEAN CELL HGB (test code = MCH) 35.1 picogram 27.0-33.0 H MEAN CELL HGB CONCETRATION (test code = MCHC) 39.3 gram/dL 33.0-36. 0 H RED CELL DISTRIBUTION WIDTH (test code = RDW) 14.9 % 11.6-16. 2 N RED CELL DISTRIBUTION WIDTH SD (test code = RDW-SD) 46.9 fL 37 .0-51.0 N PLATELET COUNT (test code = PLT) 57 K/mm3 150-450 L MEAN PLATELET VOLUME (test code = MPV) 11.6 fL 6.7-11.0 H NEUTROPHIL % (test code = NT%) 55.7 % 39.0-69.0 N IMMATURE GRANULOCYTE % (test code = IG%) 0.4 % 0.0-5.0 N LYMPHOCYTE % (test code = LY%) 33.5 % 25.0-55.0 N MONOCYTE % (test code = MO%) 8.0 % 0.0-10.0 N EOSINOPHIL % (test code = EO%) 2.4 % 0.0-5.0 N BASOPHIL % (test code = BA%) 0.0 % 0.0-1.0 N NUCLEATED RBC % (test code = NRBC%) 0.0 % 0-0 N NEUTROPHIL # (test code = NT#) 1.40 K/mm3 1.8-7.7 L IMMATURE GRANULOCYTE # (test code = IG#) 0.01 x10 3/uL 0-0.03 N LYMPHOCYTE # (test code = LY#) 0.84 K/mm3 1.0-5.0 L MONOCYTE # (test code = MO#) 0.20 K/mm3 0-0.8 N EOSINOPHIL # (test code = EO#) 0.06 K/mm3 0.0-0.5 N BASOPHIL # (test code = BA#) 0.00 K/mm3 0.0-0.2 N NUCLEATED RBC # (test code = NRBC#) 0.00 K/mm3 0.0-0.1 N MANUAL DIFF REQUIRED (test code = MDIFF) NO, ONLY SCAN NEEDED DIFFERENTIAL [id number] 05:10:00* Test Item Value Reference Range Interpretation Comments STAIN ACCEPTABILITY (test code = STN ACCEPTABLE) CABOT RINGS (test code = CAB) MORPHOLOGY COMMENT (test code = MOC) PLATELET ESTIMATE (test code = PLTEST) PLATELET MORPHOLOGY (test code = PLTMORPH) CBC W/AUTO [id number] 05:10:00* Test Item Value Reference Range Interpretation Comments WHITE BLOOD CELL (test code = WBC) 2.5 K/mm3 4.5-12.5 L RED BLOOD CELL (test code = RBC) 3.36 mill/mm3 3.7-5.2 L HEMOGLOBIN (test code = HGB) 11.8 gram/dL 11.5-15.5 N HEMATOCRIT (test code = HCT) 30.0 % 36.0-46.0 L MEAN CELL VOLUME (test code = MCV) 89.3 fL 80-98 N MEAN CELL HGB (test code = MCH) 35.1 picogram 27.0-33.0 H MEAN CELL HGB CONCETRATION (test code = MCHC) 39.3 gram/dL 33.0-36. 0 H RED CELL DISTRIBUTION WIDTH (test code = RDW) 14.9 % 11.6-16. 2 N RED CELL DISTRIBUTION WIDTH SD (test code = RDW-SD) 46.9 fL 37 .0-51.0 N PLATELET COUNT (test code = PLT) 57 K/mm3 150-450 L MEAN PLATELET VOLUME (test code = MPV) 11.6 fL 6.7-11.0 H NEUTROPHIL % (test code = NT%) 55.7 % 39.0-69.0 N IMMATURE GRANULOCYTE % (test code = IG%) 0.4 % 0.0-5.0 N LYMPHOCYTE % (test code = LY%) 33.5 % 25.0-55.0 N MONOCYTE % (test code = MO%) 8.0 % 0.0-10.0 N EOSINOPHIL % (test code = EO%) 2.4 % 0.0-5.0 N BASOPHIL % (test code = BA%) 0.0 % 0.0-1.0 N NUCLEATED RBC % (test code = NRBC%) 0.0 % 0-0 N NEUTROPHIL # (test code = NT#) 1.40 K/mm3 1.8-7.7 L IMMATURE GRANULOCYTE # (test code = IG#) 0.01 x10 3/uL 0-0.03 N LYMPHOCYTE # (test code = LY#) 0.84 K/mm3 1.0-5.0 L MONOCYTE # (test code = MO#) 0.20 K/mm3 0-0.8 N EOSINOPHIL # (test code = EO#) 0.06 K/mm3 0.0-0.5 N BASOPHIL # (test code = BA#) 0.00 K/mm3 0.0-0.2 N NUCLEATED RBC # (test code = NRBC#) 0.00 K/mm3 0.0-0.1 N MANUAL DIFF REQUIRED (test code = MDIFF) NO, ONLY SCAN NEEDED DIFFERENTIAL [id number] 05:10:00* Test Item Value Reference Range Interpretation Comments STAIN ACCEPTABILITY (test code = STN ACCEPTABLE) MORPHOLOGY COMMENT (test code = MOC) PLATELET ESTIMATE (test code = PLTEST) PLATELET MORPHOLOGY (test code = PLTMORPH) CBC W/AUTO [id number] 05:09:00* Test Item Value Reference Range Interpretation Comments WHITE BLOOD CELL (test code = WBC) 2.5 K/mm3 4.5-12.5 L RED BLOOD CELL (test code = RBC) 3.36 mill/mm3 3.7-5.2 L HEMOGLOBIN (test code = HGB) 11.8 gram/dL 11.5-15.5 N HEMATOCRIT (test code = HCT) 30.0 % 36.0-46.0 L MEAN CELL VOLUME (test code = MCV) 89.3 fL 80-98 N MEAN CELL HGB (test code = MCH) 35.1 picogram 27.0-33.0 H MEAN CELL HGB CONCETRATION (test code = MCHC) 39.3 gram/dL 33.0-36. 0 H RED CELL DISTRIBUTION WIDTH (test code = RDW) 14.9 % 11.6-16. 2 N RED CELL DISTRIBUTION WIDTH SD (test code = RDW-SD) 46.9 fL 37 .0-51.0 N PLATELET COUNT (test code = PLT) 57 K/mm3 150-450 L MEAN PLATELET VOLUME (test code = MPV) 11.6 fL 6.7-11.0 H NEUTROPHIL % (test code = NT%) 55.7 % 39.0-69.0 N IMMATURE GRANULOCYTE % (test code = IG%) 0.4 % 0.0-5.0 N LYMPHOCYTE % (test code = LY%) 33.5 % 25.0-55.0 N MONOCYTE % (test code = MO%) 8.0 % 0.0-10.0 N EOSINOPHIL % (test code = EO%) 2.4 % 0.0-5.0 N BASOPHIL % (test code = BA%) 0.0 % 0.0-1.0 N NUCLEATED RBC % (test code = NRBC%) 0.0 % 0-0 N NEUTROPHIL # (test code = NT#) 1.40 K/mm3 1.8-7.7 L IMMATURE GRANULOCYTE # (test code = IG#) 0.01 x10 3/uL 0-0.03 N LYMPHOCYTE # (test code = LY#) 0.84 K/mm3 1.0-5.0 L MONOCYTE # (test code = MO#) 0.20 K/mm3 0-0.8 N EOSINOPHIL # (test code = EO#) 0.06 K/mm3 0.0-0.5 N BASOPHIL # (test code = BA#) 0.00 K/mm3 0.0-0.2 N NUCLEATED RBC # (test code = NRBC#) 0.00 K/mm3 0.0-0.1 N MANUAL DIFF REQUIRED (test code = MDIFF) NO, ONLY SCAN NEEDED DIFFERENTIAL [id number] 05:09:00* Test Item Value Reference Range Interpretation Comments STAIN ACCEPTABILITY (test code = STN ACCEPTABLE) CABOT RINGS (test code = CAB) MORPHOLOGY COMMENT (test code = MOC) PLATELET ESTIMATE (test code = PLTEST) PLATELET MORPHOLOGY (test code = PLTMORPH) CBC W/AUTO [id number] 05:09:00* Test Item Value Reference Range Interpretation Comments WHITE BLOOD CELL (test code = WBC) 2.5 K/mm3 4.5-12.5 L RED BLOOD CELL (test code = RBC) 3.36 mill/mm3 3.7-5.2 L HEMOGLOBIN (test code = HGB) 11.8 gram/dL 11.5-15.5 N HEMATOCRIT (test code = HCT) 30.0 % 36.0-46.0 L MEAN CELL VOLUME (test code = MCV) 89.3 fL 80-98 N MEAN CELL HGB (test code = MCH) 35.1 picogram 27.0-33.0 H MEAN CELL HGB CONCETRATION (test code = MCHC) 39.3 gram/dL 33.0-36. 0 H RED CELL DISTRIBUTION WIDTH (test code = RDW) 14.9 % 11.6-16. 2 N RED CELL DISTRIBUTION WIDTH SD (test code = RDW-SD) 46.9 fL 37 .0-51.0 N PLATELET COUNT (test code = PLT) 57 K/mm3 150-450 L MEAN PLATELET VOLUME (test code = MPV) 11.6 fL 6.7-11.0 H NEUTROPHIL % (test code = NT%) 55.7 % 39.0-69.0 N IMMATURE GRANULOCYTE % (test code = IG%) 0.4 % 0.0-5.0 N LYMPHOCYTE % (test code = LY%) 33.5 % 25.0-55.0 N MONOCYTE % (test code = MO%) 8.0 % 0.0-10.0 N EOSINOPHIL % (test code = EO%) 2.4 % 0.0-5.0 N BASOPHIL % (test code = BA%) 0.0 % 0.0-1.0 N NUCLEATED RBC % (test code = NRBC%) 0.0 % 0-0 N NEUTROPHIL # (test code = NT#) 1.40 K/mm3 1.8-7.7 L IMMATURE GRANULOCYTE # (test code = IG#) 0.01 x10 3/uL 0-0.03 N LYMPHOCYTE # (test code = LY#) 0.84 K/mm3 1.0-5.0 L MONOCYTE # (test code = MO#) 0.20 K/mm3 0-0.8 N EOSINOPHIL # (test code = EO#) 0.06 K/mm3 0.0-0.5 N BASOPHIL # (test code = BA#) 0.00 K/mm3 0.0-0.2 N NUCLEATED RBC # (test code = NRBC#) 0.00 K/mm3 0.0-0.1 N MANUAL DIFF REQUIRED (test code = MDIFF) NO, ONLY SCAN NEEDED DIFFERENTIAL [id number] 05:09:00* Test Item Value Reference Range Interpretation Comments STAIN ACCEPTABILITY (test code = STN ACCEPTABLE) CABOT RINGS (test code = CAB) MORPHOLOGY COMMENT (test code = MOC) PLATELET ESTIMATE (test code = PLTEST) PLATELET MORPHOLOGY (test code = PLTMORPH) CBC W/AUTO [id number] 05:02:00* Test Item Value Reference Range Interpretation Comments WHITE BLOOD CELL (test code = WBC) K/mm3 4.5-12.5 RED BLOOD CELL (test code = RBC) mill/mm3 3.7-5.2 HEMOGLOBIN (test code = HGB) 11.8 gram/dL 11.5-15.5 N HEMATOCRIT (test code = HCT) % 36.0-46.0 MEAN CELL VOLUME (test code = MCV) fL 80-98 MEAN CELL HGB (test code = MCH) picogram 27.0-33.0 MEAN CELL HGB CONCETRATION (test code = MCHC) gram/dL 33.0-36. 0 RED CELL DISTRIBUTION WIDTH (test code = RDW) % 11.6-16. 2 RED CELL DISTRIBUTION WIDTH SD (test code = RDW-SD) fL 37 .0-51.0 PLATELET COUNT (test code = PLT) K/mm3 150-450 MEAN PLATELET VOLUME (test code = MPV) fL 6.7-11.0 NEUTROPHIL % (test code = NT%) % 39.0-69.0 IMMATURE GRANULOCYTE % (test code = IG%) % 0.0-5.0 LYMPHOCYTE % (test code = LY%) % 25.0-55.0 MONOCYTE % (test code = MO%) % 0.0-10.0 EOSINOPHIL % (test code = EO%) % 0.0-5.0 BASOPHIL % (test code = BA%) % 0.0-1.0 NEUTROPHIL # (test code = NT#) K/mm3 1.8-7.7 LYMPHOCYTE # (test code = LY#) K/mm3 1.0-5.0 MONOCYTE # (test code = MO#) K/mm3 0-0.8 EOSINOPHIL # (test code = EO#) K/mm3 0.0-0.5 BASOPHIL # (test code = BA#) K/mm3 0.0-0.2 [id number] 21:10:00* Test Item Value Reference Range Interpretation Comments GLUBED (test code = GLUBED) 151 mg/dL 74-106 H Performed by certified shovel log loader operator at [facility] - MRI BRAIN W/O [id number] 19:43:00 FAX: Artem Esposito MD [phone] [place]: B St: [facility] FAX: Bin George MD [phone] Name: WANDA VILLASENOR [facility] : 1950 Age/S: 68/F [address] Unit #: [id number] Loc: [address] [place] [address] Phys: Artem Esposito MD Acct: [id number] Dis Date: Status: ADM IN PHONE #: [phone] Exam Date: 10/14/2018 1914 FAX #: [phone] Reason: dizziness EXAMS: CPT CODE: [id number] MRI BRAIN W/O CONTRAST [id number] REASON FOR EXAM: dizziness Exam Order Date: 2018 11:47 AM Attending MBarrington: Artem Esposito MD Proc edure: - MRI BRAIN W/O CONTRAST Comparison: FINDING S: Axial, sagittal, and coronal images of the head were obtained using T1, T2 weighted, inversion recovery, and gradient echo sequences. The diffus ion images are within normal limits without abnormal signal intensity to s uggest acute infarct. No IV gadolinium was given. The sagitt al images show normal cerebellum, and brain stem. No evidence of suprasell ar mass. The pituitary was not seen suggestive of pituitary atrophy. The axial T2, inversion recovery, and gradient echo images show no evidence of intra or extra axial mass. The ventricles, cisterns, and enamorado lci are unremarkable. No evidence of hemorrhage. Small punctate bright si gnal hyperintensities in the periventricular regions consistent with nonsp ecific deep white matter disease The cerebellar pontine angle area is within normal limits. There is no evidence of mass noted. The axial T1 images show no evidence of mass. No evidence of old infarct. The coronal images show normal optic chiasm. IMPRESSION: Unremarkable brain. at 1944 Reported and signed by: Juancarlos Mcpherson M.D. PAGE 1 Signed Report (CONTINUED) FAX: Artem Esposito MD [phone] [place]: B St: [facility] FAX: Bin George MD [phone] Name: VILLASENORWANDA V [facility] : 1950 Age/S : 68/F [address] Unit #: [id number] Loc: [address] [place] [address] Phys: Artem Esposito MD Acct: [id number] Dis Date: Status: ADM IN PHONE #: [phone] Exam Date: 10/14/20181913 FAX #: [phone] Reason: dizziness EXAMS: CPT CODE: [id number] MRI BRAIN W/O CONTRAST [id number] <Continued> CC: Artem Esposito MD; Bin Stovall MD Technologist: WALE [facility] - MRI Trnscrd Date/Time/By: 10/14/2018 (1942) : By: MayelinVTL Orig Print D/T: S: 10/14/2018 (1945) PAGE 2 Signed Report [id number] 15:30:00* Test Item Value Reference Range Interpretation Comments GLUBED (test code = GLUBED) 161 mg/dL 74-106 H Performed by certified shovel log loader operator at [facility] [id number] 11:42:00* Test Item Value Reference Range Interpretation Comments GLUBED (test code = GLUBED) 158 mg/dL 74-106 H Performed by certified shovel log loader operator at [facility] [id number] 11:23:00* Test Item Value Reference Range Interpretation Comments GLYCOSYLATED HEMOGLOBIN (HA1C) (test code = GLYHGB) 6.5 % HbA1 4. 8-6.0 H ESTIMATED AVERAGE GLUCOSE (test code = EAG) 140 MG/DL CBC W/AUTO [id number] 10:46:00* Test Item Value Reference Range Interpretation Comments WHITE BLOOD CELL (test code = WBC) 2.7 K/mm3 4.5-12.5 L RED BLOOD CELL (test code = RBC) 4.18 mill/mm3 3.7-5.2 N HEMOGLOBIN (test code = HGB) 11.6 gram/dL 11.5-15.5 N HEMATOCRIT (test code = HCT) 37.1 % 36.0-46.0 N MEAN CELL VOLUME (test code = MCV) 88.3 fL 80-98 N MEAN CELL HGB (test code = MCH) 27.5 picogram 27.0-33.0 N MEAN CELL HGB CONCETRATION (test code = MCHC) 31.2 gram/dL 33.0-36. 0 L RED CELL DISTRIBUTION WIDTH (test code = RDW) 15.1 % 11.6-16. 2 N RED CELL DISTRIBUTION WIDTH SD (test code = RDW-SD) 48.5 fL 37 .0-51.0 N PLATELET COUNT (test code = PLT) 58 K/mm3 150-450 L MEAN PLATELET VOLUME (test code = MPV) 12.3 fL 6.7-11.0 H NEUTROPHIL % (test code = NT%) 49.9 % 39.0-69.0 N IMMATURE GRANULOCYTE % (test code = IG%) 0.4 % 0.0-5.0 N LYMPHOCYTE % (test code = LY%) 36.9 % 25.0-55.0 N MONOCYTE % (test code = MO%) 8.8 % 0.0-10.0 N EOSINOPHIL % (test code = EO%) 4.0 % 0.0-5.0 N BASOPHIL % (test code = BA%) 0.0 % 0.0-1.0 N NUCLEATED RBC % (test code = NRBC%) 0.0 % 0-0 N NEUTROPHIL # (test code = NT#) 1.37 K/mm3 1.8-7.7 L IMMATURE GRANULOCYTE # (test code = IG#) 0.01 x10 3/uL 0-0.03 N LYMPHOCYTE # (test code = LY#) 1.01 K/mm3 1.0-5.0 N MONOCYTE # (test code = MO#) 0.24 K/mm3 0-0.8 N EOSINOPHIL # (test code = EO#) 0.11 K/mm3 0.0-0.5 N BASOPHIL # (test code = BA#) 0.00 K/mm3 0.0-0.2 N NUCLEATED RBC # (test code = NRBC#) 0.00 K/mm3 0.0-0.1 N MANUAL DIFF REQUIRED (test code = MDIFF) NO, ONLY SCAN NEEDED DIFFERENTIAL [id number] 10:46:00* Test Item Value Reference Range Interpretation Comments STAIN ACCEPTABILITY (test code = STN ACCEPTABLE) CABOT RINGS (test code = CAB) MORPHOLOGY COMMENT (test code = MOC) PLATELET ESTIMATE (test code = PLTEST) PLATELET MORPHOLOGY (test code = PLTMORPH) CBC W/AUTO [id number] 10:46:00* Test Item Value Reference Range Interpretation Comments WHITE BLOOD CELL (test code = WBC) 2.7 K/mm3 4.5-12.5 L RED BLOOD CELL (test code = RBC) 4.18 mill/mm3 3.7-5.2 N HEMOGLOBIN (test code = HGB) 11.6 gram/dL 11.5-15.5 N HEMATOCRIT (test code = HCT) 37.1 % 36.0-46.0 N MEAN CELL VOLUME (test code = MCV) 88.3 fL 80-98 N MEAN CELL HGB (test code = MCH) 27.5 picogram 27.0-33.0 N MEAN CELL HGB CONCETRATION (test code = MCHC) 31.2 gram/dL 33.0-36. 0 L RED CELL DISTRIBUTION WIDTH (test code = RDW) 15.1 % 11.6-16. 2 N RED CELL DISTRIBUTION WIDTH SD (test code = RDW-SD) 48.5 fL 37 .0-51.0 N PLATELET COUNT (test code = PLT) 58 K/mm3 150-450 L MEAN PLATELET VOLUME (test code = MPV) 12.3 fL 6.7-11.0 H NEUTROPHIL % (test code = NT%) 49.9 % 39.0-69.0 N IMMATURE GRANULOCYTE % (test code = IG%) 0.4 % 0.0-5.0 N LYMPHOCYTE % (test code = LY%) 36.9 % 25.0-55.0 N MONOCYTE % (test code = MO%) 8.8 % 0.0-10.0 N EOSINOPHIL % (test code = EO%) 4.0 % 0.0-5.0 N BASOPHIL % (test code = BA%) 0.0 % 0.0-1.0 N NUCLEATED RBC % (test code = NRBC%) 0.0 % 0-0 N NEUTROPHIL # (test code = NT#) 1.37 K/mm3 1.8-7.7 L IMMATURE GRANULOCYTE # (test code = IG#) 0.01 x10 3/uL 0-0.03 N LYMPHOCYTE # (test code = LY#) 1.01 K/mm3 1.0-5.0 N MONOCYTE # (test code = MO#) 0.24 K/mm3 0-0.8 N EOSINOPHIL # (test code = EO#) 0.11 K/mm3 0.0-0.5 N BASOPHIL # (test code = BA#) 0.00 K/mm3 0.0-0.2 N NUCLEATED RBC # (test code = NRBC#) 0.00 K/mm3 0.0-0.1 N MANUAL DIFF REQUIRED (test code = MDIFF) NO, ONLY SCAN NEEDED DIFFERENTIAL [id number] 10:46:00* Test Item Value Reference Range Interpretation Comments STAIN ACCEPTABILITY (test code = STN ACCEPTABLE) CABOT RINGS (test code = CAB) MORPHOLOGY COMMENT (test code = MOC) PLATELET ESTIMATE (test code = PLTEST) PLATELET MORPHOLOGY (test code = PLTMORPH) CBC W/AUTO [id number] 10:46:00* Test Item Value Reference Range Interpretation Comments WHITE BLOOD CELL (test code = WBC) 2.7 K/mm3 4.5-12.5 L RED BLOOD CELL (test code = RBC) 4.18 mill/mm3 3.7-5.2 N HEMOGLOBIN (test code = HGB) 11.6 gram/dL 11.5-15.5 N HEMATOCRIT (test code = HCT) 37.1 % 36.0-46.0 N MEAN CELL VOLUME (test code = MCV) 88.3 fL 80-98 N MEAN CELL HGB (test code = MCH) 27.5 picogram 27.0-33.0 N MEAN CELL HGB CONCETRATION (test code = MCHC) 31.2 gram/dL 33.0-36. 0 L RED CELL DISTRIBUTION WIDTH (test code = RDW) 15.1 % 11.6-16. 2 N RED CELL DISTRIBUTION WIDTH SD (test code = RDW-SD) 48.5 fL 37 .0-51.0 N PLATELET COUNT (test code = PLT) 58 K/mm3 150-450 L MEAN PLATELET VOLUME (test code = MPV) 12.3 fL 6.7-11.0 H NEUTROPHIL % (test code = NT%) 49.9 % 39.0-69.0 N IMMATURE GRANULOCYTE % (test code = IG%) 0.4 % 0.0-5.0 N LYMPHOCYTE % (test code = LY%) 36.9 % 25.0-55.0 N MONOCYTE % (test code = MO%) 8.8 % 0.0-10.0 N EOSINOPHIL % (test code = EO%) 4.0 % 0.0-5.0 N BASOPHIL % (test code = BA%) 0.0 % 0.0-1.0 N NUCLEATED RBC % (test code = NRBC%) 0.0 % 0-0 N NEUTROPHIL # (test code = NT#) 1.37 K/mm3 1.8-7.7 L IMMATURE GRANULOCYTE # (test code = IG#) 0.01 x10 3/uL 0-0.03 N LYMPHOCYTE # (test code = LY#) 1.01 K/mm3 1.0-5.0 N MONOCYTE # (test code = MO#) 0.24 K/mm3 0-0.8 N EOSINOPHIL # (test code = EO#) 0.11 K/mm3 0.0-0.5 N BASOPHIL # (test code = BA#) 0.00 K/mm3 0.0-0.2 N NUCLEATED RBC # (test code = NRBC#) 0.00 K/mm3 0.0-0.1 N MANUAL DIFF REQUIRED (test code = MDIFF) NO, ONLY SCAN NEEDED DIFFERENTIAL [id number] 10:46:00* Test Item Value Reference Range Interpretation Comments STAIN ACCEPTABILITY (test code = STN ACCEPTABLE) MORPHOLOGY COMMENT (test code = MOC) PLATELET ESTIMATE (test code = PLTEST) PLATELET MORPHOLOGY (test code = PLTMORPH) CBC W/AUTO [id number] 10:46:00* Test Item Value Reference Range Interpretation Comments WHITE BLOOD CELL (test code = WBC) 2.7 K/mm3 4.5-12.5 L RED BLOOD CELL (test code = RBC) 4.18 mill/mm3 3.7-5.2 N HEMOGLOBIN (test code = HGB) 11.6 gram/dL 11.5-15.5 N HEMATOCRIT (test code = HCT) 37.1 % 36.0-46.0 N MEAN CELL VOLUME (test code = MCV) 88.3 fL 80-98 N MEAN CELL HGB (test code = MCH) 27.5 picogram 27.0-33.0 N MEAN CELL HGB CONCETRATION (test code = MCHC) 31.2 gram/dL 33.0-36. 0 L RED CELL DISTRIBUTION WIDTH (test code = RDW) 15.1 % 11.6-16. 2 N RED CELL DISTRIBUTION WIDTH SD (test code = RDW-SD) 48.5 fL 37 .0-51.0 N PLATELET COUNT (test code = PLT) 58 K/mm3 150-450 L MEAN PLATELET VOLUME (test code = MPV) 12.3 fL 6.7-11.0 H NEUTROPHIL % (test code = NT%) 49.9 % 39.0-69.0 N IMMATURE GRANULOCYTE % (test code = IG%) 0.4 % 0.0-5.0 N LYMPHOCYTE % (test code = LY%) 36.9 % 25.0-55.0 N MONOCYTE % (test code = MO%) 8.8 % 0.0-10.0 N EOSINOPHIL % (test code = EO%) 4.0 % 0.0-5.0 N BASOPHIL % (test code = BA%) 0.0 % 0.0-1.0 N NUCLEATED RBC % (test code = NRBC%) 0.0 % 0-0 N NEUTROPHIL # (test code = NT#) 1.37 K/mm3 1.8-7.7 L IMMATURE GRANULOCYTE # (test code = IG#) 0.01 x10 3/uL 0-0.03 N LYMPHOCYTE # (test code = LY#) 1.01 K/mm3 1.0-5.0 N MONOCYTE # (test code = MO#) 0.24 K/mm3 0-0.8 N EOSINOPHIL # (test code = EO#) 0.11 K/mm3 0.0-0.5 N BASOPHIL # (test code = BA#) 0.00 K/mm3 0.0-0.2 N NUCLEATED RBC # (test code = NRBC#) 0.00 K/mm3 0.0-0.1 N MANUAL DIFF REQUIRED (test code = MDIFF) NO, ONLY SCAN NEEDED DIFFERENTIAL [id number] 10:46:00* Test Item Value Reference Range Interpretation Comments STAIN ACCEPTABILITY (test code = STN ACCEPTABLE) CABOT RINGS (test code = CAB) MORPHOLOGY COMMENT (test code = MOC) PLATELET ESTIMATE (test code = PLTEST) PLATELET MORPHOLOGY (test code = PLTMORPH) CBC W/AUTO [id number] 10:42:00* Test Item Value Reference Range Interpretation Comments WHITE BLOOD CELL (test code = WBC) K/mm3 4.5-12.5 RED BLOOD CELL (test code = RBC) mill/mm3 3.7-5.2 HEMOGLOBIN (test code = HGB) 11.6 gram/dL 11.5-15.5 N HEMATOCRIT (test code = HCT) 37.1 % 36.0-46.0 N MEAN CELL VOLUME (test code = MCV) fL 80-98 MEAN CELL HGB (test code = MCH) picogram 27.0-33.0 MEAN CELL HGB CONCETRATION (test code = MCHC) gram/dL 33.0-36. 0 RED CELL DISTRIBUTION WIDTH (test code = RDW) % 11.6-16. 2 RED CELL DISTRIBUTION WIDTH SD (test code = RDW-SD) fL 37 .0-51.0 PLATELET COUNT (test code = PLT) K/mm3 150-450 MEAN PLATELET VOLUME (test code = MPV) fL 6.7-11.0 NEUTROPHIL % (test code = NT%) % 39.0-69.0 IMMATURE GRANULOCYTE % (test code = IG%) % 0.0-5.0 LYMPHOCYTE % (test code = LY%) % 25.0-55.0 MONOCYTE % (test code = MO%) % 0.0-10.0 EOSINOPHIL % (test code = EO%) % 0.0-5.0 BASOPHIL % (test code = BA%) % 0.0-1.0 NEUTROPHIL # (test code = NT#) K/mm3 1.8-7.7 LYMPHOCYTE # (test code = LY#) K/mm3 1.0-5.0 MONOCYTE # (test code = MO#) K/mm3 0-0.8 EOSINOPHIL # (test code = EO#) K/mm3 0.0-0.5 BASOPHIL # (test code = BA#) K/mm3 0.0-0.2 COMPREHENSIVE METABOLIC [id number] 10:24:00* Test Item Value Reference Range Interpretation Comments SODIUM (test code = NA) 142 mmol/L 136-145 N POTASSIUM (test code = K) 4.0 mmol/L 3.5-5.1 N CHLORIDE (test code = CL) 111.0 mmol/L 98-107 H CARBON DIOXIDE (test code = CO2) 25.0 mmol/L 21-32 N ANION GAP (test code = GAP) 10.0 10-20 N GLUCOSE (test code = GLU) 120 mg/dL 74-106 H BLOOD UREA NITROGEN (test code = BUN) 13 mg/dL 7-18 N GLOMERULAR FILTRATION RATE (test code = GFR) > 60 mL/min >=60 Estimated GFR by using Modified MDRD formula.Chronic kidney disease is defined as either kidney damageor GFR <60 mL/min/1.73 m2 for >3 months. CREATININE (test code = CREAT) 0.60 mg/dL 0.55-1.02 N Note change in reference range due to change in reagent. BUN/CREATININE RATIO (test code = BUN/CREA) 21.8 10-20 H TOTAL PROTEIN (test code = PROT) 6.6 gram/dL 6.4-8.2 N ALBUMIN (test code = ALB) 3.0 g/dL 3.4-5.0 L GLOBULIN (test code = GLOB) 3.6 gram/dL 2.7-4.2 N ALBUMIN/GLOBULIN RATIO (test code = A/G) 0.8 0.75-1.50 N CALCIUM (test code = CA) 9.0 mg/dL 8.5-10.1 N BILIRUBIN TOTAL (test code = BILT) 0.60 mg/dL 0.0-1.0 N SGOT/AST (test code = AST) 35 IUnit/L 15-37 N SGPT/ALT (test code = ALT) 27 IUnit/L 12-78 N ALKALINE PHOSPHATASE TOTAL (test code = ALKP) 157 IUnit/L 45-117 H Note change in reference range due to change in reagent. LIPID PROFILE (CORONARY RISK)[id number] 10:24:00* Test Item Value Reference Range Interpretation Comments TRIGLYCERIDES (test code = TRIG) 148 mg/dL 20-150 N CHOLESTEROL (test code = CHOL) 140 mg/dL 0-200 N CHOLESTEROL/HDL RATIO (test code = CHOLHDL) 3.0 RATIO 0-4.9 N RISK ASSOCIATED WITH CHOL/HDL RATIOS: Risk Male Female1/2 AVERAGE 3.43 3.27AVERAGE 4.97 4.442X AVERAGE 9.55 7.053X AVERAGE 23.39 11.04 REFERENCE VALUE IS RELATED TO RISK LEVELS ASRECOMMENDED BY THE G[facility]. HEART, LUNG, AND BLOOD INST. HDL CHOLESTEROL (test code = HDL) 40 mg/dL 40-60 N LIPOPROTEIN LDL (test code = LDL) 91 mg/dL 100-129 L Reference Interval: mg/dL mmol/L Optimal <100 <2.6Near/above optimal 100-129 2.6- 3.3Borderline High 130-159 3.4-4.1High 160-189 4.1-4.9Very High >=190 >=4.9========= This LDL result is a direct measurement.========= COMPREHENSIVE METABOLIC [id number] 10:14:00* Test Item Value Reference Range Interpretation Comments SODIUM (test code = NA) 142 mmol/L 136-145 N POTASSIUM (test code = K) 4.0 mmol/L 3.5-5.1 N CHLORIDE (test code = CL) 111.0 mmol/L 98-107 H CARBON DIOXIDE (test code = CO2) mmol/L 21-32 ANION GAP (test code = GAP) 10-20 GLUCOSE (test code = GLU) mg/dL 74-106 BLOOD UREA NITROGEN (test code = BUN) mg/dL 7-18 GLOMERULAR FILTRATION RATE (test code = GFR) mL/min >=60 CREATININE (test code = CREAT) mg/dL 0.55-1.02 BUN/CREATININE RATIO (test code = BUN/CREA) 10-20 TOTAL PROTEIN (test code = PROT) gram/dL 6.4-8.2 ALBUMIN (test code = ALB) g/dL 3.4-5.0 GLOBULIN (test code = GLOB) gram/dL 2.7-4.2 ALBUMIN/GLOBULIN RATIO (test code = A/G) 0.75-1.50 CALCIUM (test code = CA) mg/dL 8.5-10.1 BILIRUBIN TOTAL (test code = BILT) mg/dL 0.0-1.0 SGOT/AST (test code = AST) IUnit/L 15-37 SGPT/ALT (test code = ALT) IUnit/L 12-78 ALKALINE PHOSPHATASE TOTAL (test code = ALKP) IUnit/L 45-117 CBC W/AUTO [id number] 10:00:00* Test Item Value Reference Range Interpretation Comments WHITE BLOOD CELL (test code = WBC) K/mm3 4.5-12.5 RED BLOOD CELL (test code = RBC) mill/mm3 3.7-5.2 HEMOGLOBIN (test code = HGB) 11.6 gram/dL 11.5-15.5 N HEMATOCRIT (test code = HCT) % 36.0-46.0 MEAN CELL VOLUME (test code = MCV) fL 80-98 MEAN CELL HGB (test code = MCH) picogram 27.0-33.0 MEAN CELL HGB CONCETRATION (test code = MCHC) gram/dL 33.0-36. 0 RED CELL DISTRIBUTION WIDTH (test code = RDW) % 11.6-16. 2 RED CELL DISTRIBUTION WIDTH SD (test code = RDW-SD) fL 37 .0-51.0 PLATELET COUNT (test code = PLT) K/mm3 150-450 MEAN PLATELET VOLUME (test code = MPV) fL 6.7-11.0 NEUTROPHIL % (test code = NT%) % 39.0-69.0 IMMATURE GRANULOCYTE % (test code = IG%) % 0.0-5.0 LYMPHOCYTE % (test code = LY%) % 25.0-55.0 MONOCYTE % (test code = MO%) % 0.0-10.0 EOSINOPHIL % (test code = EO%) % 0.0-5.0 BASOPHIL % (test code = BA%) % 0.0-1.0 NEUTROPHIL # (test code = NT#) K/mm3 1.8-7.7 LYMPHOCYTE # (test code = LY#) K/mm3 1.0-5.0 MONOCYTE # (test code = MO#) K/mm3 0-0.8 EOSINOPHIL # (test code = EO#) K/mm3 0.0-0.5 BASOPHIL # (test code = BA#) K/mm3 0.0-0.2 [id number] 08:25:00* Test Item Value Reference Range Interpretation Comments GLUBED (test code = GLUBED) 126 mg/dL 74-106 H Performed by certified shovel log loader operator at [facility] [id number] 08:19:00* Test Item Value Reference Range Interpretation Comments TROPONIN-I (test code = TROPI) <0.015 ng/mL 0-0.045 N COMMENTS TO ALGEBRA TEACHER: COLLECT 3 HOURS AFTER PREVIOUS [id number] 02:24:00* Test Item Value Reference Range Interpretation Comments TROPONIN-I (test code = TROPI) <0.015 ng/mL 0-0.045 N COMMENTS TO ALGEBRA TEACHER: COLLECT 3 HOURS AFTER PREVIOUS SAMPLEBASIC METABOLIC [id number] 20:16:00* Test Item Value Reference Range Interpretation Comments SODIUM (test code = NA) 140 mmol/L 136-145 N POTASSIUM (test code = K) 4.3 mmol/L 3.5-5.1 N CHLORIDE (test code = CL) 107.0 mmol/L 98-107 N CARBON DIOXIDE (test code = CO2) 27.0 mmol/L 21-32 N ANION GAP (test code = GAP) 10.3 10-20 N GLUCOSE (test code = GLU) 191 mg/dL 74-106 H BLOOD UREA NITROGEN (test code = BUN) 13 mg/dL 7-18 N GLOMERULAR FILTRATION RATE (test code = GFR) > 60 mL/min >=60 Estimated GFR by using Modified MDRD formula.Chronic kidney disease is defined as either kidney damageor GFR <60 mL/min/1.73 m2 for >3 months. CREATININE (test code = CREAT) 0.70 mg/dL 0.55-1.02 N Note change in reference range due to change in reagent. BUN/CREATININE RATIO (test code = BUN/CREA) 19.6 10-20 N CALCIUM (test code = CA) 9.5 mg/dL 8.5-10.1 N [id number] 20:16:00* Test Item Value Reference Range Interpretation Comments TROPONIN-I (test code = TROPI) <0.015 ng/mL 0-0.045 N TROPONIN I [id number] 20:12:00* Test Item Value Reference Range Interpretation Comments TROPONIN I RAPID (test code = TROPIRAP) 0.00 ng/mL <0.08 Please Note New Reference Range 0.00-0.079 ng/mL - Negative>or= 0.08 ng/mL - Positive The use of serial sampling and testing protocol is arecommended practice.An elevated troponin level alone is often not sufficient fordiagnosis of myocardial infarction. Troponin results obtained by different assays may vary.Evaluation of the extent of myocardial damage based onincrease of troponin would be valid only if similarmethodology is used. BASIC METABOLIC [id number] 20:07:00* Test Item Value Reference Range Interpretation Comments SODIUM (test code = NA) 140 mmol/L 136-145 N POTASSIUM (test code = K) 4.3 mmol/L 3.5-5.1 N CHLORIDE (test code = CL) 107.0 mmol/L 98-107 N CARBON DIOXIDE (test code = CO2) mmol/L 21-32 ANION GAP (test code = GAP) 10-20 GLUCOSE (test code = GLU) mg/dL 74-106 BLOOD UREA NITROGEN (test code = BUN) mg/dL 7-18 GLOMERULAR FILTRATION RATE (test code = GFR) mL/min >=60 CREATININE (test code = CREAT) mg/dL 0.55-1.02 BUN/CREATININE RATIO (test code = BUN/CREA) 10-20 CALCIUM (test code = CA) mg/dL 8.5-10.1 [id number] 20:07:00* Test Item Value Reference Range Interpretation Comments TROPONIN-I (test code = TROPI) ng/mL 0-0.045 CBC W/O [id number] 20:01:00* Test Item Value Reference Range Interpretation Comments WHITE BLOOD CELL (test code = WBC) 4.0 K/mm3 4.5-12.5 L RED BLOOD CELL (test code = RBC) 4.69 mill/mm3 3.7-5.2 N HEMOGLOBIN (test code = HGB) 12.8 gram/dL 11.5-15.5 N HEMATOCRIT (test code = HCT) 40.5 % 36.0-46.0 N MEAN CELL VOLUME (test code = MCV) 86.4 fL 80-98 N MEAN CELL HGB (test code = MCH) 27.3 picogram 27.0-33.0 N MEAN CELL HGB CONCETRATION (test code = MCHC) 31.6 gram/dL 33.0-36. 0 L RED CELL DISTRIBUTION WIDTH (test code = RDW) 14.8 % 11.6-16. 2 N PLATELET COUNT (test code = PLT) 74 K/mm3 150-450 L RESULT VERIFIED BY REPEAT ANALYSIS MEAN PLATELET VOLUME (test code = MPV) 11.8 fL 6.7-11.0 H CBC W/O [id number] 19:56:00* Test Item Value Reference Range Interpretation Comments WHITE BLOOD CELL (test code = WBC) K/mm3 4.5-12.5 RED BLOOD CELL (test code = RBC) mill/mm3 3.7-5.2 HEMOGLOBIN (test code = HGB) 12.8 gram/dL 11.5-15.5 N HEMATOCRIT (test code = HCT) 40.5 % 36.0-46.0 N MEAN CELL VOLUME (test code = MCV) fL 80-98 MEAN CELL HGB (test code = MCH) picogram 27.0-33.0 MEAN CELL HGB CONCETRATION (test code = MCHC) gram/dL 33.0-36. 0 RED CELL DISTRIBUTION WIDTH (test code = RDW) % 11.6-16. 2 PLATELET COUNT (test code = PLT) K/mm3 150-450 MEAN PLATELET VOLUME (test code = MPV) fL 6.7-11.0 - XR CHEST 2 [id number] 19:22:00 FAX: Ike Dan Owen: B St: PRE Name: WANDA YARBROUGH [facility] : [birth year] Age/S: 68/F [address] [facility] Unit #: [id number] Loc: [place] [address] Phys: Ike Dan Acct: [id number] Dis Date: Status: PRE ER PHONE #: [phone] Exam Date: 10/13/2018 192 FAX #: [phone] Reason: CHEST PAIN EXAMS: CPT CODE: [id number] XR CHEST 2 V [id number] REASON FOR EXAM: CHEST SURENDRA N Exam Order Date: 10/13/2018 7:06 PM Ordering Manuela: Ike Dan MD PROCEDURE: - XR CHEST 2 V COM PARISON: FINDINGS: PA and lateral views of the chest show clear l ungs without evidence of consolidation. No evidence of effusion. The heart size is within normal limits. Pulmonary vasculatures are unremarkable. Th e osseous structures are grossly intact. IMPRESSION: No ac tive disease. at 192 Reported and signed by: Juancarlos Mcpherson M.D. CC: Ike Dan MD Technologi st: Geovanny Ramírez RT(R Trnscrd Date/Time/By: 10/13/2018 (1921) : By: PieterL Orig Print D/T: S: 10/13/2018 (1924 ) PAGE 1 Signed Report
--- OUTSIDE RECORDS SUMMARY | 2019-10-14 21:24 | XMS REPORT | Continuity of Care Document ---
Author Author [facility] t Organization [facility] Address [address] [place] [address] Phone Unavailable Care Team Providers Care Kindergarten Paraprofessional Name Role Phone BIN STOVALL PCP ALICE REED Attphys Unavailable ALICE REED Admphys Unavailable Payers Payer Name Policy Type Policy Number Effective Date Expiration Date S ource Problems Condition Name Condition Details Condition Category Status Onset Date Resolution Date Last Treatment Date Treating Clinician Comments Source Chest pain Problem Active [facility] Allergies, Adverse Reactions, Alerts Allergy Name Allergy Type Status Severity Reaction(s) Onset Date Inacti ve Date Treating Clinician Comments Source No Known Allergies DA Active U 2018-10-13 00:00:00 [facility] No Known Allergies DA Active U 2017-03-20 00:00:00 [facility] Social History Social Habit Start Date Stop Date Quantity Comments Source Sex Assigned At 1950 00:00:00 1950 00:00:00 Female [facility] Medications Ordered Medication Name Filled Medication Name Start Date Stop Da te Current Medication? Ordering Clinician Indication Dosage Frequency Signature (SIG) Comments Components Source Aspirin (Aspirin Ec) 81 Mg TABLET. Aspirin (Aspirin Ec) 81 Mg TABLET. 2019-09-04 12:15:00 Yes 81 Daily [facility] Famotidine Famotidine 2019-09-04 12:15:00 Yes 20 Enedina ry 12 Hours [facility] Pravastatin Sodium (Pravachol) 20 Mg TABLET Pravastati n Sodium (Pravachol) 20 Mg TABLET 2019-09-04 12:15:00 Yes 20 Bedtime [facility] Lisinopril Lisinopril Yes 1 Daily CH I [facility] Metformin Hcl Metformin Hcl Yes 1 Twice A Day [facility] Vital Signs Vital Name Observation Time Observation Value Comments Source Body Temperature 2019-09-05 11:13:00 98.8 [degF] [facility] BMI (Body Mass Index) 2019-09-04 00:41:00 43.0 kg/m2 [facility] Weight 2019-09-03 10:15:00 243 [lb_av] [facility] Procedures Procedure Date / Time Performed Performing Clinician Sourc e US abdomen complete 2019-09-05 00:00:00 [facility] Plan of Care Planned Activity Planned Date Details Comments Source Instructions Chest Pain - Chest Wall [facility] Instructions Heart Healthy Diet [facility] Instructions Infection Control [facility] Results Test Description Test Time Test Comments Results Result Comments Source US ABDOMEN COMPLETE 2019-09-05 11:51:00 [facility] [address] [address] Patient Name: WANDA VILLASENOR MR #: [id number] : 1950 Age/Sex: 69/F Req #: [id number] Adm Physician: ALICE REED MD Ordered by: ALICE REED MD Report #: [id number] Location: MED/SURG3 Room/Bed: [facility] Procedure: [id number] US/US ABDOMEN COMPLETE Exam Date: 09/05/19 Exam [...] Test Item Bedside Glucose (test code = 90466-7) 126 70-120 Meter ID: [id number] [facility] 2019-09-04 22:05:[address] [address] Patient Name: WANDA VILLASENOR MR #: [id number] : 1950 Age/Sex: 69/F Req #: [id number] Adm Physician: ALICE REED MD Ordered by: ALICE REED MD Report #: [id number] Location: MED/SURG3 Room/Bed: [facility] Procedure: [id number] DX/ABDOMEN-1V IEW (KUB) Exam Date: 09/04/19 Exam [...] Level (test code = 2571-8) 81 0-149 [facility] (mass/volume)2019-09-04 05:40:00* Test Item Value Reference Range Interpretation Comments Cholesterol Level (test code = 2093-3) 140 0-199 Less than 200 mg/dL Low Gack924 - 239 mg/dL Borderline Erjt490 m g/dl and greater High Risk [facility] cholesterol in LDL measurement (mass/volume) 2019-09-04 05:40:00* Test Item Value Reference Range Interpretation Comments LDL Cholesterol (test code = 2089-1) 81 60-130 [facility] cholesterol in HDL measurement (mass/volume)2019-09-04 05:40:00* Test Item Value Reference Range Interpretation Comments HDL Cholesterol (test code = 2085-9) 43 40-60 [facility] total cholesterol/cholesterol in HDL mass rnrlm8895-48-31 05:40:00* Test Item Value Reference Range Interpretation Comments Cholesterol/HDL Ratio (test code = 9830-1) 3.3 3.0-3.6 [facility] creatine kinase measurement (enzymatic activity/volume)2019-09-04 05:40:00* Test Item Value Reference Range Interpretation Comments Creatine Kinase (test code = 2157-6) 45 29-168 [facility] creatine kinase MB measurement (mass/volume)2019-09-04 05:40:00* Test Item Value Reference Range Interpretation Comments Creatine Kinase MB (test code = 85744-2) 0.40 0-5.0 [facility] CampusTroponin I measurement by highly sensitive enzyme ldaqxpfumwl5294-72-68 05:40:00* Test Item Value Reference Range Interpretation Comments Troponin I (test code = 22680-6) 0.066 0-0.300 [facility] CampusCHEST SINGLE (PORTABLE)2019-09-03 11:28:00 [facility] [address] [place] [address] Patient Name: WANDA VILLASENOR MR #: [id number] : 1950 Age/Sex: 69/F Req #: [id number] Adm Physician: ALICE REED MD Ordered by: ALEN CARRILLO DO Report #: [id number] Location: MED/SURG3 Room/Bed: [facility] Procedure: [id number] DX/CHEST SINGLE (PORTABLE) Exam Date: 09/03/19 Exam [...] on 09/03/2019 11:29 AM Dic tated By: LUIS DANIEL CORDOBA MD 112 9 Transcribed By: NATHAN on 09/03/19 1129 COPY TO: ALEN CARRILLO, Blood leukocytes automated count (number/volume)2019-09-03 10:22:00* Test Item Value Reference Range Interpretation Comments White Blood Count (test code = 6690-2) 2.78 4.8-10.8 [facility] erythrocytes automated count (number/volume)2019-09-03 10:22:00* Test Item Value Reference Range Interpretation Comments Red Blood Count (test code = 789-8) 4.79 3.6-5.1 [facility] hemoglobin measurement (moles/volume)2019-09-03 10:22:00* Test Item Value Reference Range Interpretation Comments Hemoglobin (test code = 32818-6) 13.0 12.0-16.0 [facility] CampusAutomated blood hematocrit (volume fraction)2019-09-03 10:22:00* Test Item Value Reference Range Interpretation Comments Hematocrit (test code = 4544-3) 41.6 34.2-44.1 [facility] CampusAutomated erythrocyte mean corpuscular wvgrua1883-42-66 10:22:00* Test Item Value Reference Range Interpretation Comments Mean Corpuscular Volume (test code = 787-2) 86.8 81-99 [facility] CampusAutomated erythrocyte mean corpuscular hemoglobin (mass per erythrocyte)2019-09-03 10:22:00* Test Item Value Reference Range Interpretation Comments Mean Corpuscular Hemoglobin (test code = 785-6) 27.1 28-32 [facility] CampusAutomated erythrocyte mean corpuscular hemoglobin concentration measurement (mass/volume)2019-09-03 10:22:00* Test Item Value Reference Range Interpretation Comments Mean Corpuscular Hemoglobin Concent (test code = 786-4) 31.3 31-35 [facility] CampusRDW DnvEs-Cpb8369-03-19 10:22:00* Test Item Value Reference Range Interpretation Comments Red Cell Distribution Width (test code = 73482-6) 14.8 11.7 -14.4 [facility] CampusAutomated blood platelet count (count/volume)2019-09-03 10:22:00* Test Item Value Reference Range Interpretation Comments Platelet Count (test code = 777-3) 51 140-360 [facility] CampusAutformerly [facility] careed blood segmented neutrophil count as percentage of total croyhrlgyk2395-77-68 10:22:00* Test Item Value Reference Range Interpretation Comments Neutrophils (%) (Auto) (test code = 20884-7) 64.0 38.7-80.0 [facility] CampusAutomated blood lymphocyte count as percentage ot total ezqlbwycap5779-20-10 10:22:00* Test Item Value Reference Range Interpretation Comments Lymphocytes (%) (Auto) (test code = 736-9) 23.0 18.0-39.1 [facility] CampusAutomated blood monocyte count as percentage of total xecrwevuxt4733-42-67 10:22:00* Test Item Value Reference Range Interpretation Comments Monocytes (%) (Auto) (test code = 5905-5) 9.0 4.4-11.3 [facility] CampusAutomated blood eosinophil count as percentage of total atclastyfz5989-96-34 10:22:00* Test Item Value Reference Range Interpretation Comments Eosinophils (%) (Auto) (test code = 713-8) 3.2 0.0-6.0 [facility] CampusAutomated blood basophil count as percentage of total mwehefbxva6359-77-24 10:22:00* Test Item Value Reference Range Interpretation Comments Basophils (%) (Auto) (test code = 706-2) 0.4 0.0-1.0 [facility] CampusFluoroscopic procedure less than one hour fjrmgzlw8401-46-12 10:22:00* Test Item Value Reference Range Interpretation Comments IM GRANULOCYTES % (test code = IM GRANULOCYTES %) 0.4 0.0- 1.0 [facility] CampusAutomated blood neutrophil count 2019-09-03 10:22:00* Test Item Value Reference Range Interpretation Comments Neutrophils # (Auto) (test code = 751-8) 1.8 2.1-6.9 [facility] CampusBlood lymphocytes count (number/volume) 2019-09-03 10:22:00* Test Item Value Reference Range Interpretation Comments Lymphocytes # (Auto) (test code = 37080-2) 0.6 1.0-3.2 [facility] CampusBlood monocytes automated count (number/volume)2019-09-03 10:22:00* Test Item Value Reference Range Interpretation Comments Monocytes # (Auto) (test code = 742-7) 0.3 0.2-0.8 [facility] CampusAutomated blood eosinophil count 2019-09-03 10:22:00* Test Item Value Reference Range Interpretation Comments Eosinophils # (Auto) (test code = 711-2) 0.1 0.0-0.4 [facility] CampusAutomated blood basophil count (count/volume)2019-09-03 10:22:00* Test Item Value Reference Range Interpretation Comments Basophils # (Auto) (test code = 704-7) 0.0 0.0-0.1 [facility] CampusFluoroscopic procedure less than one hour vexwndhw7204-42-88 10:22:00* Test Item Value Reference Range Interpretation Comments Absolute Immature Granulocyte (auto (tian t code = Absolute Immature Granulocyte (auto) 0.01 0-0.1 [facility] or [facility] sodium measurement (moles/volume)2019-09-03 10:22:00* Test Item Value Reference Range Interpretation Comments Sodium Level (test code = 2951-2) 140 136-145 [facility] or plasma potassium measurement (moles/volume)2019-09-03 10:22:00* Test Item Value Reference Range Interpretation Comments Potassium Level (test code = 2823-3) 4.0 3.5-5.1 [facility] or plasma chloride measurement (moles/volume)2019-09-03 10:22:00* Test Item Value Reference Range Interpretation Comments Chloride Level (test code = 2075-0) 106 98-107 [facility] or plasma carbon dioxide, total measurement (moles/volume)2019-09-03 10:22:00* Test Item Value Reference Range Interpretation Comments Carbon Dioxide Level (test code = 2028-9) 27 22-29 [facility] or plasma anion ald8977-80-19 10:22:00* Test Item Value Reference Range Interpretation Comments Anion Gap (test code = 49965-5) 11.0 8-16 [facility] or plasma urea nitrogen measurement (mass/volume)2019-09-03 10:22:00* Test Item Value Reference Range Interpretation Comments Blood Urea Nitrogen (test code = 3094-0) 8 7-26 [facility] or plasma creatinine measurement (mass/volume)2019-09-03 10:22:00* Test Item Value Reference Range Interpretation Comments Creatinine (test code = 2160-0) 0.69 0.57-1.11 [facility] or plasma urea nitrogen/creatinine mass uhwqe6515-93-39 10:22:00* Test Item Value Reference Range Interpretation Comments BUN/Creatinine Ratio (test code = 3097-3) 12 6-25 [facility] CampusEstimated glomerular filtration rate (GFR) jijgcwduktjej4795-42-32 10:22:00* Test Item Value Reference Range Interpretation Comments Estimat Glomerular Filtration Rate (test code = 840348334) > 60 >60 Ranges were taken from the National Kidney Disease Education Program and the [facility] Foundation literature.Reference ranges:60 or greater: Hwngma20-17 ( for 3 consecutive months): Chronic kidney disease 15 or less: Kidney failureThe Hospitals of Providence Horizon City CampusGlucose mdeqcsuskgv9124-62-47 10:22:00* Test Item Value Reference Range Interpretation Comments Glucose Level (test code = ZON6750) 116 74-118 [facility] or plasma calcium measurement (mass/volume)2019-09-03 10:22:00* Test Item Value Reference Range Interpretation Comments Calcium Level (test code = 13994-1) 8.8 8.4-10.2 [facility] CampusFluoroscopic procedure less than one hour ridwdebu6539-24-85 10:22:00* Test Item Value Reference Range Interpretation Comments Hemoglobin A1c Percent (test code = Hemoglobin A1c Percent) 5.6 4.0-7.0 [facility] or plasma total bilirubin measurement (mass/volume)2019-09-03 10:22:00* Test Item Value Reference Range Interpretation Comments Total Bilirubin (test code = 1975-2) 1.1 0.2-1.2 [facility] CampusFluoroscopic procedure less than one hour erglfxwe6165-46-85 10:22:00* Test Item Value Reference Range Interpretation Comments Aspartate Amino Transf (AST/SGOT) (test code = Aspartate Amino Transf (AST/SGOT)) 50 5-34 [facility] or plasma alanine aminotransferase measurement (enzymatic activity/volume)2019-09-03 10:22:00* Test Item Value Reference Range Interpretation Comments Alanine Aminotransferase (ALT/SGPT) (test code = 1742-6) 27 0-55 [facility] or plasma protein measurement (mass/volume)2019-09-03 10:22:00* Test Item Value Reference Range Interpretation Comments Total Protein (test code = 2885-2) 6.7 6.5-8.1 [facility] or plasma albumin measurement (mass/volume)2019-09-03 10:22:00* Test Item Value Reference Range Interpretation Comments Albumin (test code = 1751-7) 3.3 3.5-5.0 [facility] CampusPlasma globulin measurement (mass/volume) 2019-09-03 10:22:00* Test Item Value Reference Range Interpretation Comments Globulin (test code = 62241-6) 3.4 2.3-3.5 [facility] or plasma albumin/globulin mass kzfiw4979-70-72 10:22:00* Test Item Value Reference Range Interpretation Comments Albumin/Globulin Ratio (test code = 1759-0) 1.0 0.8-2.0 [facility] or plasma alkaline phosphatase measurement (enzymatic activity/volume)2019-09-03 10:22:00* Test Item Value Reference Range Interpretation Comments Alkaline Phosphatase (test code = 6768-6) 149 40-150 [facility] CampusBNP Hmq-dMgb4485-13-19 10:22:00* Test Item Value Reference Range Interpretation Comments B-Type Natriuretic Peptide (test code = 67350-2) 53.5 0-100 [facility] CampusGLUBED2020-02-21 08:11:00* Test Item Value Reference Range Interpretation Comments GLUBED (test code = GLUBED) 101 mg/dL 74-106 N Performed by certified hardening machine operator helper at [facility] AAPKUU1231-98-18 20:32:00* Test Item Value Reference Range Interpretation Comments GLUBED (test code = GLUBED) 136 mg/dL 74-106 H Performed by certified hardening machine operator helper at [facility] ABYJTM2076-85-79 16:13:00* Test Item Value Reference Range Interpretation Comments GLUBED (test code = GLUBED) 128 mg/dL 74-106 H Performed by certified hardening machine operator helper at [facility] UKCFON6639-04-01 11:39:00* Test Item Value Reference Range Interpretation Comments GLUBED (test code = GLUBED) 160 mg/dL 74-106 H Performed by certified hardening machine operator helper at [facility] FOQIKL4373-18-06 08:55:00* Test Item Value Reference Range Interpretation Comments GLUBED (test code = GLUBED) 121 mg/dL 74-106 H Performed by certified hardening machine operator helper at [facility] DKXNHY4646-17-18 20:45:00* Test Item Value Reference Range Interpretation Comments GLUBED (test code = GLUBED) 180 mg/dL 74-106 H Performed by certified hardening machine operator helper at [facility] NRMBGD1541-82-44 16:32:00* Test Item Value Reference Range Interpretation Comments GLUBED (test code = GLUBED) 116 mg/dL 74-106 H Performed by certified hardening machine operator helper at [facility] YSSBYN6769-18-75 11:46:00* Test Item Value Reference Range Interpretation Comments GLUBED (test code = GLUBED) 107 mg/dL 74-106 H Performed by certified hardening machine operator helper at [facility] CBC W/AUTO LGUU4537-63-21 11:26:00* Test Item Value Reference Range Interpretation [...] code = NRBC#) 0.00 K/mm3 0.0-0.1 N ZXRVJB2090-15-54 08:01:00* Test Item Value Reference Range Interpretation Comments GLUBED (test code = GLUBED) 133 mg/dL 74-106 H Performed by certified hardening machine operator helper at [facility] KAFVJB1871-52-26 19:47:00* Test Item Value Reference Range Interpretation Comments GLUBED (test code = GLUBED) 199 mg/dL 74-106 H Performed by certified hardening machine operator helper at [facility] LIPID PROFILE (CORONARY RISK)2019-05-04 17:40:00* Test Item [...] This LDL result is a direct measurement.========= [id number] 17:40:00* Test Item Value Reference Range Interpretation Comments GLYCOSYLATED HEMOGLOBIN (HA1C) (test code = GLYHGB) 8.2 % HbA1 SUGGESTED DIAGNOSIS: HbA1C (%) Diabetic >6.4Prediabetes 5.7 - 6.4Normal <5.7 ESTIMATED AVERAGE GLUCOSE (test code = EAG) 189 MG/DL CFRHED0344-49-10 16:29:00* Test Item Value Reference Range Interpretation Comments GLUBED (test code = GLUBED) 149 mg/dL 74-106 H Performed by certified hardening machine operator helper at [facility] UQXUYC4691-17-19 13:50:00* Test Item Value Reference Range Interpretation Comments GLUBED (test code = GLUBED) 183 mg/dL 74-106 H Performed by certified hardening machine operator helper at [facility] SDYZYP3056-67-03 08:45:00* Test Item Value Reference Range Interpretation Comments GLUBED (test code = GLUBED) 111 mg/dL 74-106 H Performed by certified hardening machine operator helper at [facility] - CT ABD PELVIS W/ZFYV9364-50-13 23:37:00 Name: WANDA VILLASENOR [place] [facility] : 1950 Age/S: 68 / F [address] Unit #: [id number] Loc: [place] [address] Phys: Devorah Mcfarland MD Acct: [id number] Dis Date: Status: REG ER PHONE #: [phone] Exam Date: 05/03/20190 FAX #: [phone] Reason: epigastric pain, gallbladder surgery x1 week EXAMS: CPT CODE: [id number] CT ABD PELVIS W/CONT 98568 AFTER HOURS SERVICE ON: 05/03/2019 11:16 PM [...] absent. Bladder is unremarkable. There is no helean wel obstruction or free air. 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 at 7 Reported and signed by: Rachid Kelly M.D. CC: Bin Stovall MD; Devorah Mcfarland MD Technologist:GRADY RICHARDSON, RT CTDI: DLP: Trnscb Date/Time: 05/03/2019 (7512) t.SDR.MA50 Orig Print D/T: S: 05/03/2019 (8491) PAGE 2 Signed Report BASIC METABOLIC PANEL [...] CA) 8.2 mg/dL 8.5-10.1 L HEPATIC FUNCTION [id number] 21:15:00* Test Item Value Reference Range Interpretation [...] reference range due to change in reagent. [id number] 21:15:00* Test Item Value Reference Range Interpretation Comments LIPASE (test code = LIP) 82 U/L 73.0-393.0 N [id number] 21:15:00* Test Item Value Reference Range Interpretation Comments TROPONIN-I (test code = TROPI) <0.015 ng/mL 0-0.045 N URINALYSIS [id number] 21:00:00* Test Item Value Reference Range Interpretation [...] FEW A Urine Source? Clean CatchBASIC METABOLIC [id number] 20:58:00* Test Item Value Reference Range Interpretation [...] code = CA) mg/dL 8.5-10.1 HEPATIC FUNCTION [id number] 20:58:00* Test Item Value Reference Range Interpretation [...] TOTAL (test code = ALKP) IUnit/L 45-117 CSGWAA1455-08-31 20:58:00* Test Item Value Reference Range Interpretation Comments LIPASE (test code = LIP) U/L 73.0-393.0 [id number]-[id number] 20:58:00* Test Item Value Reference Range Interpretation Comments TROPONIN-I (test code = TROPI) ng/mL 0-0.045 CBC W/O [id number] 20:58:00* Test Item Value Reference Range Interpretation [...] = MPV) 12.2 fL 6.7-11.0 H URINALYSIS [id number] 20:54:00* Test Item Value Reference Range Interpretation [...] HPF NONE Urine Source? Clean CatchCBC W/O [id number] 20:52:00* Test Item Value Reference Range Interpretation [...] code = MPV) fL 6.7-11.0 [facility] [id number] 15:04:00* Test Item Value Reference Range Interpretation [...] = COM) TEST NOT PERFORMED [facility] [id number] 09:10:00* Test Item Value Reference Range Interpretation [...] CD45/SSC gating COMMENT(S) (test code = COM) WHJGVPFCBZT9560-65-09 16:01:00 RUN DATE: 04/16/19 [place] [facility] PAGE 1 RUN TIME: 1601 Specimen Inqui ry RUN USER: INTERFACE PATIENT: WANDA VILLASENOR V ACCT #: [id number] LOC: [facility] U #: [id number] AGE/SX: 68/F ROOM: Janice5 RE04/11/19REG DR: Artem Esposito MD : [birth year] BED: B DIS: STATUS: ADM IN TLOC: SPEC #: [id number] RECD: 04/15/19 STATUS: TRUE JOSE #: [id number] ISRAEL: 04/15/19- SUBM DR: Jaylan Greenberg MD ENTERED: 04/15/19-1431 SP TYPE: GALLBLADD OTHR DR: Keren Fitzpatrick MD, Amir A MD Romero, Alberto J MDORDERED: GROSS COPIES TO: Jaylan Greenberg MD [address] [place], [place] [id number] Junaid Fitzpatrick MD [address] [facility] [address] [place] [address] [place] [address] [facility] [address] [place] [address] Bin Stovall MD [address] [facility] [place], [place] [id number] MARKERS: ABNORMAL TISSUE, GALLBLADDER PROCEDURES: GROSS (04/16/19-150) TISSUES: GALLBLADDER, NO S CLINICAL HISTORY COLLECTION DATE: 04/15/19 CHOLECYSTITIS FINAL DIAGNOSIS Gallbladder, cholecystectomy: CHRONIC ACALCULOUS CH OLECYSTITIS NEGATIVE FOR MALIGNANCY CONTINUED ON NEXT PAGE RUN DATE: 04/16/19 [place] - Lab PAGE 2 RUN TIME: 1601 Specimen Inquiry RUN USER: INTERFACE SPEC #: [id number] PATIENT: WANDA VILLASENOR V #[id number] (Continued)--------- --- FINAL DIAGNOSIS (Continued) RRB/scott A 17112 MACROSCOPIC The specimen is received in formalin, [...] within the tissue or the specimen container. Telephone Sex Worker tissue is submitted in a single cassette. GROSS PERFORMED A T [facility] [address] [place] [address] (p)[phone] MICROSCOPIC All o f the stains, including any controls performed, stain appropriately. MICRO SCOPIC PERFORMED AT [facility] [address] [place] [address] (p)[phone] PERFORMING SITE Diagnosis performed at: [facility], LILI [address] [facility], [place] [address] 04 Signed SIGNATURE ON FILE Dairon Webster MD 04/16/19 1601 END OF REPORT [id number] 11:39:00* Test Item Value Reference Range Interpretation Comments GLUBED (test code = GLUBED) 271 mg/dL 74-106 H Performed by certified hardening machine operator helper at [facility] [id number] 07:09:00* Test Item Value Reference Range Interpretation Comments GLUBED (test code = GLUBED) 246 mg/dL 74-106 H Performed by certified hardening machine operator helper at [facility] CBC W/MANUAL [id number] 06:56:00* Test Item Value Reference Range Interpretation [...] 45 K/mm3 150-450 LL Results called to [id number] by V.LAB.KN2 04/16/19 0611Critical results verified and [...] IMMAT) 0 % 0-0 N COMPREHENSIVE METABOLIC [id number] 06:32:00* Test Item Value Reference Range Interpretation [...] due to change in reagent. COMPREHENSIVE METABOLIC [id number] 06:21:00* Test Item Value Reference Range Interpretation [...] code = ALKP) IUnit/L 45-117 CBC W/MANUAL [id number] 06:11:00* Test Item Value Reference Range Interpretation [...] 45 K/mm3 150-450 LL Results called to [id number] by V.LAB.KN2 04/16/19 0611Critical results verified and [...] MORPHOLOGY (test code = PLTMORPH) CBC W/MANUAL [id number] 06:11:00* Test Item Value Reference Range Interpretation [...] 45 K/mm3 150-450 LL Results called to [id number] by RASHEEDA 04/16/19 0611Critical results verified and [...] MORPHOLOGY (test code = PLTMORPH) CBC W/MANUAL [id number] 06:11:00* Test Item Value Reference Range Interpretation [...] 45 K/mm3 150-450 LL Results called to [id number] by RASHEEDA 04/16/19 0611Critical results verified and [...] MORPHOLOGY (test code = PLTMORPH) CBC W/MANUAL [id number] 06:11:00* Test Item Value Reference Range Interpretation [...] 45 K/mm3 150-450 LL Results called to [id number] by GIFTY.SETH2 04/16/19 0611Critical results verified and [...] MORPHOLOGY (test code = PLTMORPH) CBC W/MANUAL [id number] 06:11:00* Test Item Value Reference Range Interpretation [...] 45 K/mm3 150-450 LL Results called to [id number] by V.EVERETT.KN2 04/16/19 0611Critical results verified and [...] PLTEST) PLATELET MORPHOLOGY (test code = PLTMORPH) [id number] 21:39:00* Test Item Value Reference Range Interpretation Comments GLUBED (test code = GLUBED) 266 mg/dL 74-106 H Performed by certified hardening machine operator helper at [facility] [id number] 16:42:00* Test Item Value Reference Range Interpretation Comments GLUBED (test code = GLUBED) 209 mg/dL 74-106 H Performed by certified hardening machine operator helper at [facility] [id number] 13:21:00* Test Item Value Reference Range Interpretation Comments GLUBED (test code = GLUBED) 119 mg/dL 74-106 H Performed by certified hardening machine operator helper at [facility] CBC W/MANUAL [id number] 07:46:00* Test Item Value Reference Range Interpretation [...] 35 K/mm3 150-450 LL Results called to [id number] by Ajith.EVERETT.FARIDEH 04/15/19 0700Critical results verified and [...] IMMAT) 0 % 0-0 N COMPREHENSIVE METABOLIC [id number] 07:16:00* Test Item Value Reference Range Interpretation [...] reference range due to change in reagent. [id number] 07:10:00* Test Item Value Reference Range Interpretation Comments GLUBED (test code = GLUBED) 131 mg/dL 74-106 H Performed by certified hardening machine operator helper at [facility] CBC W/MANUAL [id number] 07:00:00* Test Item Value Reference Range Interpretation [...] 35 K/mm3 150-450 LL Results called to [id number] by V.LAB.FARIDEH 04/15/19 0700Critical results verified and [...] MORPHOLOGY (test code = PLTMORPH) CBC W/MANUAL [id number] 07:00:00* Test Item Value Reference Range Interpretation [...] 35 K/mm3 150-450 LL Results called to [id number] by V.LAB.JDonald 04/15/19 0700Critical results verified and [...] MORPHOLOGY (test code = PLTMORPH) CBC W/MANUAL [id number] 07:00:00* Test Item Value Reference Range Interpretation [...] 35 K/mm3 150-450 LL Results called to [id number] by CHARLEE 04/15/19 0700Critical results verified and [...] MORPHOLOGY (test code = PLTMORPH) CBC W/MANUAL [id number] 07:00:00* Test Item Value Reference Range Interpretation [...] 35 K/mm3 150-450 LL Results called to [id number] by CHARLEE 04/15/19 0700Critical results verified and [...] MORPHOLOGY (test code = PLTMORPH) CBC W/MANUAL [id number] 07:00:00* Test Item Value Reference Range Interpretation [...] 35 K/mm3 150-450 LL Results called to [id number] by V.LAB.FARIDEH 04/15/19 0700Critical results verified and [...] PLTEST) PLATELET MORPHOLOGY (test code = PLTMORPH) [id number] 20:35:00* Test Item Value Reference Range Interpretation Comments GLUBED (test code = GLUBED) 204 mg/dL 74-106 H Performed by certified hardening machine operator helper at [facility] BONE [id number] 17:28:00 RUN DATE: 04/14/19 [facility] Lab PAGE 1 RUN TIME: 1729 Specimen Inqui ry RUN USER: INTERFACE PATIENT: WANDA VILLASENOR V ACCT #: [id number] LOC: SalmaHECTOR U #: [id number] AGE/SX: 68/F ROOM: [facility] RE04/11/19REG DR: Artem Esposito MD : 48 BED: B DIS: STATUS: ADM IN TLOC: SPEC #: [id number] RECD: 04/13/19-141 STATUS: SOUT REQ #: [id number] ISRAEL: 04/13/19- SUBM DR: Artem Esposito MD ENTERED: 04/13/19 SP TYPE: BON MARROW OTHR DR: Jaylan Greenberg MD, Kuldip Kumar MD Rasheed, Amir A MD Romero, Alberto J MDORDERED: GROSS COPIES TO: Artem Esposito MD [address] [place] [address] Jaylan Greenberg MD [address] [place] [address] Junaid Fitzpatrick MD [address] [place] [address] [place] [address] [facility] [address] [place] [address] Bin Stovall MD [address] [address] PROCEDURES: GROSS (04/14) TISSUES: BONE MARROW, NOS - BX, CLOT, SMEAR CLINICAL HISTORY COLLECTION DATE: 04/13/19 THROMBOCYTOPENIA, ANEMIA CONTINUED ON NEXT PAGE RUN DATE: 04/14/19 [place] - Lab PAGE 2 RUN TI ME: 1729 Specimen Inquiry RUN USER : INTERFACE --SPEC #: [id number] PATIENT: AGUSTÍN VILLASENORMYLES Canseco #[id number] (Continued) COMMENT The iron stains performed [...] SLIGHT PREDOMINANCE OF LYMPHOCYTES NO BLASTS IDENTIFIED [facility]/ D [address], [address], [address] FLOW CYTOMETRY Flow Cytometry Analysis Accession/Case No: [id number] Diagnosis:No diagnostic im munophenotypic abnormalities detected, however [...] CONTINUED ON NEXT PAGE RUN DATE: 04/14/19 [place] - Lab PAGE 3 RUN TIME: 1729 Specimen Inquiry RUN USER: INTERFAC E SPEC #: [id number] PATIENT: WANDA VILLASENOR V #[id number] (Contin ued) FLOW CYTOMETRY (Continued) Monocytes: 2.7%Mo [...] CD33, CD34,CD38, CD45, CD56, CD64, CD117, HLA-DR, Venturia, Lambda (24 Markers) CPT Codes:33803k3, 99202i52, 91980w5 MACROSCOPIC The spec imen consists of bone [...] in a single cassette. GROSS PERFORMED AT [facility] [address] [facility] [address] (P)[phone] CONTINUED ON NE XT PAGE RUN DATE: 04/14/19 [place] [facility] PAGE 4 RUN TIME: 1729 [facility] RUN USER: INTERFACE SPEC #: [id number] PATIENT: WANDA BOONE Ajith #[id number] (Continued) M ICROSCOPIC All of the stains, including any controls performed, stain appropr iately. MICROSCOPIC PERFORMED AT [facility] [address] [facility], [place] [id number] (p)[phone] PERFORMING SITE Diagnosis performed at: [facility] [address] [facility], [place] [address] Signed SIGNATURE ON FILE Darion Webster MD 04/14/19 1728 END OF REPORT GLUBED 2019-04-14 16:09:00* Test Item Value Reference Range Interpretation Comments GLUBED (test code = GLUBED) 252 mg/dL 74-106 H Performed by certified hardening machine operator helper at [facility] [id number] 12:17:00* Test Item Value Reference Range Interpretation Comments GLUBED (test code = GLUBED) 158 mg/dL 74-106 H Performed by certified hardening machine operator helper at [facility] CBC W/MANUAL [id number] 08:28:00* Test Item Value Reference Range Interpretation [...] 32 K/mm3 150-450 LL Results called to [id number] by [facility] 04/14/19 0653Critical results verified and read [...] code = IMMAT) 0 % 0-0 N [id number] 08:13:00* Test Item Value Reference Range Interpretation Comments GLUBED (test code = GLUBED) 281 mg/dL 74-106 H Performed by certified hardening machine operator helper at [facility] COMPREHENSIVE METABOLIC [id number] 07:15:00* Test Item Value Reference Range Interpretation [...] due to change in reagent. COMPREHENSIVE METABOLIC [id number] 07:04:00* Test Item Value Reference Range Interpretation [...] code = ALKP) IUnit/L 45-117 CBC W/MANUAL [id number] 06:54:00* Test Item Value Reference Range Interpretation [...] 32 K/mm3 150-450 LL Results called to [id number] by [facility] 04/14/19 0653Critical results verified and read [...] MORPHOLOGY (test code = PLTMORPH) CBC W/MANUAL [id number] 06:54:00* Test Item Value Reference Range Interpretation [...] 32 K/mm3 150-450 LL Results called to [id number] by [facility] 04/14/19 0653Critical results verified and read [...] MORPHOLOGY (test code = PLTMORPH) CBC W/MANUAL [id number] 06:54:00* Test Item Value Reference Range Interpretation [...] 32 K/mm3 150-450 LL Results called to [id number] by [facility] 04/14/19 0653Critical results verified and read [...] MORPHOLOGY (test code = PLTMORPH) CBC W/MANUAL [id number] 06:53:00* Test Item Value Reference Range Interpretation [...] 32 K/mm3 150-450 LL Results called to [id number] by [facility] 04/14/19 0653Critical results verified and read [...] MORPHOLOGY (test code = PLTMORPH) CBC W/MANUAL [id number] 06:53:00* Test Item Value Reference Range Interpretation [...] 32 K/mm3 150-450 LL Results called to [id number] by [facility] 04/14/19 0653Critical results verified and read [...] PLTEST) PLATELET MORPHOLOGY (test code = PLTMORPH) [id number] 20:38:00* Test Item Value Reference Range Interpretation Comments GLUBED (test code = GLUBED) 412 mg/dL 74-106 H Performed by certified hardening machine operator helper at [facility] [id number] 16:40:00* Test Item Value Reference Range Interpretation Comments GLUBED (test code = GLUBED) 107 mg/dL 74-106 H Performed by certified hardening machine operator helper at [facility] - XR FLUORO [id number] 15:23:00 Name: WANDA VILLASENOR V [facility] : 1950 Age/S: 68 / F [address] Unit #: [id number] Loc: [place] [address] Phys: Artem Esposito MD Acct: [id number] Dis Date: Status: ADM IN PHONE #: [phone] Exam Date: 04/13/2019 1330 FAX #: [phone] Reason: EXAMS: CPT CODE: [id number] XR FLUORO NDL 28636 Fluoro Time: 490 DAP (Gy m2): 6.530 Air Kerma (mGy): 94 REASON FOR EXAM: Thrombocytopenia EXAM ORDER DATE: 04/13/2019 12:48 PM Attending MMineDMine:Artem Esposito MD Location:[facility] PROCEDURE: Fluoroscopic guided bone marrow biopsy with [...] (1526) PAGE 1 Signed Report [facility] BONE [id number] 13:30:00* Test Item Value Reference Range Interpretation [...] green hep tubes for flow & chrom [id number] 11:48:00* Test Item Value Reference Range Interpretation Comments GLUBED (test code = GLUBED) 116 mg/dL 74-106 H Performed by certified hardening machine operator helper at [facility] [id number] 08:03:00* Test Item Value Reference Range Interpretation Comments GLUBED (test code = GLUBED) 121 mg/dL 74-106 H Performed by certified hardening machine operator helper at [facility] CBC W/MANUAL [id number] 03:56:00* Test Item Value Reference Range Interpretation [...] 40 K/mm3 150-450 LL Results called to [id number] by GIFTY.VIJAYA 04/13/19 0322Critical results verified and [...] IMMAT) 0 % 0-0 N COMPREHENSIVE METABOLIC [id number] 03:34:00* Test Item Value Reference Range Interpretation [...] range due to change in reagent. PROTHROMBIN [id number] 03:29:00* Test Item Value Reference Range Interpretation [...] PHLEBO TOMIST: NEED FOR SURGERY 04/13/19ROMBOPLASTIN TIME [id number] 03:29:00 * Test Item Value Reference Range Interpretation Comments THROMBOPLASTIN TIME PARTIAL (test code = PTT) 30.2 seconds 25.0-36. 5 N IS PATIENT ON ANTICOAGULANTS? YLIST ANTICOAGULANTS ASPIRINCOMMENTS TO PHLEBO TOMIST: NEED FOR SURGERY 04/13/19CBC W/MANUAL [id number] 03:25:00* Test Item Value Reference Range Interpretation [...] 40 K/mm3 150-450 LL Results called to [place] [address] by EDD 04/13/19 0322Critical results verified and [...] MORPHOLOGY (test code = PLTMORPH) CBC W/MANUAL [id number] 03:25:00* Test Item Value Reference Range Interpretation [...] 40 K/mm3 150-450 LL Results called to [place] [address] by [email or web address].JP1 04/13/19 0322Critical results verified and [...] MORPHOLOGY (test code = PLTMORPH) CBC W/MANUAL [id number] 03:25:00* Test Item Value Reference Range Interpretation [...] 40 K/mm3 150-450 LL Results called to [place] [address] by Bradford NetworksLAB.JP1 04/13/19 0322Critical results verified and read back [...] MORPHOLOGY (test code = PLTMORPH) CBC W/MANUAL [id number] 03:24:00* Test Item Value Reference Range Interpretation [...] 40 K/mm3 150-450 LL Results called to [id number] by LANDENJP1 04/13/19 0322Critical results verified and [...] MORPHOLOGY (test code = PLTMORPH) CBC W/MANUAL [id number] 03:24:00* Test Item Value Reference Range Interpretation [...] 40 K/mm3 150-450 LL Results called to [place] [address] by Bizo.EVERETT.JP1 04/13/19 0322Critical results verified and read back [...] MORPHOLOGY (test code = PLTMORPH) COMPREHENSIVE METABOLIC [id number] 03:21:00* Test Item Value Reference Range Interpretation [...] code = ALKP) IUnit/L 45-117 CBC W/MANUAL [id number] 01:07:00* Test Item Value Reference Range Interpretation [...] 26 K/mm3 150-450 LL Results called to [id number] by EDD 04/12/19 0548Critical results verified and [...] = IMMAT) 0 % 0-0 N PATHOLOGISTS [id number] 01:07:00* Test Item Value Reference Range Interpretation Comments PATHOLOGISTS FINDINGS (test code = PATH) COMMENTS PATH NOTES LEUKOPENIA, THROMBOCYTOPENIA Reviewed by Dr Lilly Prabhakar REVIEWED BY PATHOLOGIST [id number] 20:57:00* Test Item Value Reference Range Interpretation Comments GLUBED (test code = GLUBED) 149 mg/dL 74-106 H Performed by certified hardening machine operator helper at [facility] [id number] 16:49:00* Test Item Value Reference Range Interpretation Comments GLUBED (test code = GLUBED) 256 mg/dL 74-106 H Performed by certified hardening machine operator helper at [facility] [id number] 12:03:00* Test Item Value Reference Range Interpretation Comments GLUBED (test code = GLUBED) 101 mg/dL 74-106 N Performed by certified hardening machine operator helper at [facility] LACTIC DEHYDROGENASE(LDH)2019-04-12 10:09:00* Test Item Value Reference [...] = FESAT) 36.75 % 13-45 N VITAMIN [id number] 10:09:00* Test Item Value Reference Range Interpretation Comments VITAMIN B12 (test code = VITB12) 628 pg/mL 193-986 N FOLIC [id number] 10:09:00* Test Item Value Reference Range Interpretation Comments FOLIC ACID (test code = FOL) 16.1 ng/mL 3.10-17.50 N KAPPA LAMBDA [id number] 10:09:00* Test Item Value Reference Range Interpretation Comments KAPPA CHAINS (FLOW) (test code = KAPPA) 18.5 mg/L 3.3-19.4 LAMBDA CHAINS (FLOW) (test code = LAMBDA) 18.7 mg/L 5.7-26.3 KAPPA/LAMBDA RATIO (test code = ARELI/GERMAN) 0.99 0.26-1.65 Performed At: [facility] [address] [place], [place] [address]Unulcoj CN MD Ph:[phone] [id number] 10:09:00* Test Item Value Reference Range Interpretation Comments FERRITIN (test code = REYNA) 162 ng/mL 8-388 N - HEPA IMAG INCL GB W [id number] 08:25:00 FAX: Artem Esposito MD [phone] [place]: St: [facility] FAX: Bin George MD [phone] Name: WANDA VILLASENOR V [facility] : 1950 Age/S: 68/F [address] [facility] Unit #: [id number] Loc: [facility] [place] [address] Phys: Jaylan Greenberg MD Acct: [id number] Dis Date: Status: ADM IN PHONE #: [phone] Exam Date: 04/10/2019 5015 FAX #: [phone] Reason: abdominal pain EXAMS: CPT CODE: [id number] HEPA IMAG INCL GB W PHA 61537 HISTORY: abdominal pain EXAM: NUCLEAR MEDICINE HE [...] fraction likely represents b iliary dyskinesia. Location: [facility] Electronically Si gned by Jeffrey Ramos MD on 04/12/2019 at 0825 Reported an d signed by: Jeffrey Ramos MD CC: Artem Esposito MD; Kori Stovall MD Technologist: Soumya Flores RT(N) Trnscrd Date/Time/By: 04/12/2019 (0808) : By: [email or web address] Orig Print D/T: S: 04/12/2019 (0870) PAGE 1 Signed Report [id number] 06:39:00* Test Item Value Reference Range Interpretation Comments GLUBED (test code = GLUBED) 182 mg/dL 74-106 H Performed by certified hardening machine operator helper at [facility] CBC W/MANUAL [id number] 06:21:00* Test Item Value Reference Range Interpretation [...] 26 K/mm3 150-450 LL Results called to [id number] by LANDENJP1 04/12/19 0548Critical results verified and [...] = IMMAT) 0 % 0-0 N PATHOLOGISTS [id number] 06:21:00* Test Item Value Reference Range Interpretation Comments PATHOLOGISTS FINDINGS (test code = PATH) PATH NOTES COMPREHENSIVE METABOLIC [id number] 06:17:00* Test Item Value Reference Range Interpretation [...] due to change in reagent. COMPREHENSIVE METABOLIC [id number] 06:05:00* Test Item Value Reference Range Interpretation [...] code = ALKP) IUnit/L 45-117 CBC W/MANUAL [id number] 05:55:00* Test Item Value Reference Range Interpretation [...] 26 K/mm3 150-450 LL Results called to [id number] by GIFTY.JP1 04/12/19 0548Critical results verified and [...] PLATELET MORPHOLOGY (test code = PLTMORPH) PATHOLOGISTS [id number] 05:55:00* Test Item Value Reference Range Interpretation Comments PATHOLOGISTS FINDINGS (test code = PATH) PATH NOTES CBC W/MANUAL [id number] 05:51:00* Test Item Value Reference Range Interpretation [...] 26 K/mm3 150-450 LL Results called to [id number] by JOSE1 04/12/19 0548Critical results verified and [...] MORPHOLOGY (test code = PLTMORPH) CBC W/MANUAL [id number] 05:51:00* Test Item Value Reference Range Interpretation [...] 26 K/mm3 150-450 LL Results called to [id number] by Bizo.LAB.JP1 04/12/19 0548Critical results verified and read back [...] MORPHOLOGY (test code = PLTMORPH) CBC W/MANUAL [id number] 05:51:00* Test Item Value Reference Range Interpretation [...] 26 K/mm3 150-450 LL Results called to [id number] by GIFTY.JP1 04/12/19 0548Critical results verified and [...] MORPHOLOGY (test code = PLTMORPH) CBC W/MANUAL [id number] 05:51:00* Test Item Value Reference Range Interpretation [...] 26 K/mm3 150-450 LL Results called to [id number] by EDD 04/12/19 0548Critical results verified and [...] MORPHOLOGY (test code = PLTMORPH) CBC W/MANUAL [id number] 05:51:00* Test Item Value Reference Range Interpretation [...] 26 K/mm3 150-450 LL Results called to [id number] by Bradford NetworksLAB.JP1 04/12/19 0548Critical results verified and read back [...] PLTEST) PLATELET MORPHOLOGY (test code = PLTMORPH) [id number] 21:04:00* Test Item Value Reference Range Interpretation Comments GLUBED (test code = GLUBED) 332 mg/dL 74-106 H Performed by certified hardening machine operator helper at [facility] [id number] 16:13:00* Test Item Value Reference Range Interpretation Comments GLUBED (test code = GLUBED) 164 mg/dL 74-106 H Performed by certified hardening machine operator helper at [facility] [id number] 11:48:00* Test Item Value Reference Range Interpretation Comments GLUBED (test code = GLUBED) 206 mg/dL 74-106 H Performed by certified hardening machine operator helper at [facility] CBC W/AUTO [id number] 10:05:00* Test Item Value Reference Range Interpretation [...] 26 K/mm3 150-450 LL Results called to [id number] by V.LAB.HD1 04/11/19 0931Critical results verified and [...] = MDIFF) NO, ONLY SCAN NEEDED DIFFERENTIAL [id number] 10:05:00* Test Item Value Reference Range Interpretation Comments STAIN ACCEPTABILITY (test code = STN ACCEPTABLE) STAIN ACCEPTABLE PLATELET ESTIMATE (test code = PLTEST) DECREASED PLATELET MORPHOLOGY (test code = PLTMORPH) NORMAL PROTHROMBIN [id number] 09:34:00* Test Item Value Reference Range Interpretation [...] (2.5-3.5) IS PATIENT ON ANTICOAGULANTS? NCBC W/AUTO [id number] 09:32:00* Test Item Value Reference Range Interpretation [...] 26 K/mm3 150-450 LL Results called to [id number] by LANDENHD1 04/11/19 0931Critical results verified and [...] = MDIFF) NO, ONLY SCAN NEEDED DIFFERENTIAL [id number] 09:32:00* Test Item Value Reference Range Interpretation Comments STAIN ACCEPTABILITY (test code = STN ACCEPTABLE) CABOT RINGS (test code = CAB) MORPHOLOGY COMMENT (test code = MOC) PLATELET ESTIMATE (test code = PLTEST) PLATELET MORPHOLOGY (test code = PLTMORPH) CBC W/AUTO [id number] 09:32:00* Test Item Value Reference Range Interpretation [...] 26 K/mm3 150-450 LL Results called to [id number] by SalmaLAB.HD1 04/11/19 0931Critical results verified and [...] = MDIFF) NO, ONLY SCAN NEEDED DIFFERENTIAL [id number] 09:32:00* Test Item Value Reference Range Interpretation Comments STAIN ACCEPTABILITY (test code = STN ACCEPTABLE) MORPHOLOGY COMMENT (test code = MOC) PLATELET ESTIMATE (test code = PLTEST) PLATELET MORPHOLOGY (test code = PLTMORPH) CBC W/AUTO [id number] 09:31:00* Test Item Value Reference Range Interpretation [...] 26 K/mm3 150-450 LL Results called to [id number] by V.LAB.HD1 04/11/19 0931Critical results verified and [...] = MDIFF) NO, ONLY SCAN NEEDED DIFFERENTIAL [id number] 09:31:00* Test Item Value Reference Range Interpretation Comments STAIN ACCEPTABILITY (test code = STN ACCEPTABLE) CABOT RINGS (test code = CAB) MORPHOLOGY COMMENT (test code = MOC) PLATELET ESTIMATE (test code = PLTEST) PLATELET MORPHOLOGY (test code = PLTMORPH) CBC W/AUTO [id number] 09:31:00* Test Item Value Reference Range Interpretation [...] 26 K/mm3 150-450 LL Results called to [id number] by SalmaLAB.HD1 04/11/19 0931Critical results verified and [...] = MDIFF) NO, ONLY SCAN NEEDED DIFFERENTIAL [id number] 09:31:00* Test Item Value Reference Range Interpretation Comments STAIN ACCEPTABILITY (test code = STN ACCEPTABLE) CABOT RINGS (test code = CAB) MORPHOLOGY COMMENT (test code = MOC) PLATELET ESTIMATE (test code = PLTEST) PLATELET MORPHOLOGY (test code = PLTMORPH) [id number] 08:11:00* Test Item Value Reference Range Interpretation Comments GLUBED (test code = GLUBED) 215 mg/dL 74-106 H Performed by certified hardening machine operator helper at [facility] [id number] 20:28:00* Test Item Value Reference Range Interpretation Comments GLUBED (test code = GLUBED) 308 mg/dL 74-106 H Performed by certified hardening machine operator helper at [facility] T4 [id number] 17:36:00* Test Item Value Reference Range Interpretation Comments T4 FREE (test code = T4F) 1.38 ng/dL 0.76-1.46 N THYROID STIMULATING [id number] 17:36:00* Test Item Value Reference Range Interpretation Comments THYROID STIMULATING HORMONE (test code = TSH) 1.380 uIU/mL 0.36-3.7 4 N TSH REFERENCE RANGES: EUTHYROID: 0.35 - 4.3 mIU/mL HYPO : > 5.5 mIU/mL HYPER : < 0.35 mIU/mL [id number] 16:53:00* Test Item Value Reference Range Interpretation Comments GLUBED (test code = GLUBED) 171 mg/dL 74-106 H Performed by certified hardening machine operator helper at [facility] T4 [id number] 16:35:00* Test Item Value Reference Range Interpretation Comments T4 FREE (test code = T4F) ng/dL 0.76-1.46 THYROID STIMULATING [id number] 16:35:00* Test Item Value Reference Range Interpretation [...] = FESAT) 36.75 % 13-45 N VITAMIN [id number] 12:01:00* Test Item Value Reference Range Interpretation Comments VITAMIN B12 (test code = VITB12) 628 pg/mL 193-986 N FOLIC [id number] 12:01:00* Test Item Value Reference Range Interpretation Comments FOLIC ACID (test code = FOL) 16.1 ng/mL 3.10-17.50 N KAPPA LAMBDA [id number] 12:01:00* Test Item Value Reference Range Interpretation Comments KAPPA CHAINS (FLOW) (test code = KAPPA) LAMBDA CHAINS (FLOW) (test code = LAMBDA) KAPPA/LAMBDA RATIO (test code = ARELI/GERMAN) RATIO [id number] 12:01:00* Test Item Value Reference Range Interpretation Comments FERRITIN (test code = REYNA) 162 ng/mL 8-388 N [id number] 11:29:00* Test Item Value Reference Range Interpretation Comments GLUBED (test code = GLUBED) 237 mg/dL 74-106 H Performed by certified hardening machine operator helper at [facility] CBC W/AUTO [id number] 08:18:00* Test Item Value Reference Range Interpretation [...] 37 K/mm3 150-450 LL Results called to [id number] by LANDENJP1 04/10/19 0628Critical results verified and [...] = MDIFF) NO, ONLY SCAN NEEDED DIFFERENTIAL [id number] 08:18:00* Test Item Value Reference Range Interpretation Comments STAIN ACCEPTABILITY (test code = STN ACCEPTABLE) STAIN ACCEPTABLE PLATELET ESTIMATE (test code = PLTEST) DECREASED PLATELET MORPHOLOGY (test code = PLTMORPH) NORMAL [id number] 07:31:00* Test Item Value Reference Range Interpretation Comments GLUBED (test code = GLUBED) 294 mg/dL 74-106 H Performed by certified hardening machine operator helper at [facility] COMPREHENSIVE METABOLIC [id number] 07:31:00* Test Item Value Reference Range Interpretation [...] reference range due to change in reagent. [id number] 07:31:00* Test Item Value Reference Range Interpretation Comments LIPASE (test code = LIP) 340 U/L 73.0-393.0 N COMPREHENSIVE METABOLIC [id number] 06:56:00* Test Item Value Reference Range Interpretation [...] TOTAL (test code = ALKP) IUnit/L 45-117 [id number] 06:56:00* Test Item Value Reference Range Interpretation Comments LIPASE (test code = LIP) U/L 73.0-393.0 [id number] 06:45:00* Test Item Value Reference Range Interpretation Comments GLYCOSYLATED HEMOGLOBIN (HA1C) (test code = GLYHGB) 9.8 % HbA1 SUGGESTED DIAGNOSIS: HbA1C (%) Diabetic >6.4Prediabetes 5.7 - 6.4Normal <5.7 ESTIMATED AVERAGE GLUCOSE (test code = EAG) 235 MG/DL CBC W/AUTO [id number] 06:28:00* Test Item Value Reference Range Interpretation [...] 37 K/mm3 150-450 LL Results called to [id number] by JOSE1 04/10/19 0628Critical results verified and [...] = MDIFF) NO, ONLY SCAN NEEDED DIFFERENTIAL [id number] 06:28:00* Test Item Value Reference Range Interpretation Comments STAIN ACCEPTABILITY (test code = STN ACCEPTABLE) CABOT RINGS (test code = CAB) MORPHOLOGY COMMENT (test code = MOC) PLATELET ESTIMATE (test code = PLTEST) PLATELET MORPHOLOGY (test code = PLTMORPH) CBC W/AUTO [id number] 06:28:00* Test Item Value Reference Range Interpretation [...] 37 K/mm3 150-450 LL Results called to [id number] by [email or web address] 04/10/19 0628Critical results verified and [...] = MDIFF) NO, ONLY SCAN NEEDED DIFFERENTIAL [id number] 06:28:00* Test Item Value Reference Range Interpretation Comments STAIN ACCEPTABILITY (test code = STN ACCEPTABLE) CABOT RINGS (test code = CAB) MORPHOLOGY COMMENT (test code = MOC) PLATELET ESTIMATE (test code = PLTEST) PLATELET MORPHOLOGY (test code = PLTMORPH) CBC W/AUTO [id number] 06:28:00* Test Item Value Reference Range Interpretation [...] 37 K/mm3 150-450 LL Results called to [id number] by LANDENJP1 04/10/19 0628Critical results verified and [...] = MDIFF) NO, ONLY SCAN NEEDED DIFFERENTIAL [id number] 06:28:00* Test Item Value Reference Range Interpretation Comments STAIN ACCEPTABILITY (test code = STN ACCEPTABLE) MORPHOLOGY COMMENT (test code = MOC) PLATELET ESTIMATE (test code = PLTEST) PLATELET MORPHOLOGY (test code = PLTMORPH) CBC W/AUTO [id number] 06:28:00* Test Item Value Reference Range Interpretation [...] 37 K/mm3 150-450 LL Results called to [id number] by JOSE1 04/10/19 0628Critical results verified and [...] = MDIFF) NO, ONLY SCAN NEEDED DIFFERENTIAL [id number] 06:28:00* Test Item Value Reference Range Interpretation Comments STAIN ACCEPTABILITY (test code = STN ACCEPTABLE) CABOT RINGS (test code = CAB) MORPHOLOGY COMMENT (test code = MOC) PLATELET ESTIMATE (test code = PLTEST) PLATELET MORPHOLOGY (test code = PLTMORPH) - US ABDOMEN [id number] 15:13:00 Name: WANDA VILLASENOR V [place] Home : 1950 Age[facility]S: 68 [facility] [address] [facility]: [id number] Loc: [place] [address] Phys: Caden Meza MD Acct: [id number] Dis Date: Status: REG ER PHONE #: [phone] Exam Date: 04/09/2019 9934 FAX #: [phone] Reason: UPPER ABD PAIN EXAMS: CPT CODE: [id number] US ABDOMEN LTD [id number] REASON FOR EXAM: UPPER ABD PAIN EXAM ORDER DATE: 04/09/2019 1:06 PM Ordering: Caden Meza MD Attending:Caden Meza MD Location:[facility] PROCEDURE: - US ABDOMEN LTD FINDINGS: The [...] (1515) Probe: PAGE 1 Signed Report URINALYSIS [id number] 13:25:00* Test Item Value Reference Range Interpretation [...] #/LPF FEW Urine Source? Clean CatchCBC W/O [id number] 13:24:00* Test Item Value Reference Range Interpretation [...] read back by Nurse? Results called to [id number] by V.LAB.WILKINS 04/09/19 1258Critical results verified and read back by Nurse? Y MEAN PLATELET VOLUME (test code = MPV) 12.8 fL 6.7-11.0 H DIFFERENTIAL [id number] 13:24:00* Test Item Value Reference Range Interpretation Comments STAIN ACCEPTABILITY (test code = STN ACCEPTABLE) STAIN ACCEPTABLE MORPHOLOGY COMMENT (test code = MOC) NORMAL PLATELET ESTIMATE (test code = PLTEST) DECREASED PLATELET MORPHOLOGY (test code = PLTMORPH) NORMAL BASIC METABOLIC [id number] 13:07:00* Test Item Value Reference Range Interpretation [...] CA) 9.2 mg/dL 8.5-10.1 N HEPATIC FUNCTION [id number] 13:07:00* Test Item Value Reference Range Interpretation [...] reference range due to change in reagent. [id number] 13:07:00* Test Item Value Reference Range Interpretation Comments LIPASE (test code = LIP) 237 U/L 73.0-393.0 N BASIC METABOLIC [id number] 13:05:00* Test Item Value Reference Range Interpretation [...] code = CA) mg/dL 8.5-10.1 HEPATIC FUNCTION [id number] 13:05:00* Test Item Value Reference Range Interpretation [...] TOTAL (test code = ALKP) IUnit/L 45-117 [id number] 13:05:00* Test Item Value Reference Range Interpretation Comments LIPASE (test code = LIP) U/L 73.0-393.0 CBC W/O [id number] 13:01:00* Test Item Value Reference Range Interpretation [...] K/mm3 150-450 LL Results called to by Bizo.LAB.WILIKNS 04/09/19 1255Critical results verified and read back by Nurse? Results called to [id number] by Bizo.LAB.WILKINS 04/09/19 1258Critical results verified and read back by Nurse? Y MEAN PLATELET VOLUME (test code = MPV) 12.8 fL 6.7-11.0 H DIFFERENTIAL [id number] 13:01:00* Test Item Value Reference Range Interpretation Comments STAIN ACCEPTABILITY (test code = STN ACCEPTABLE) CABOT RINGS (test code = CAB) MORPHOLOGY COMMENT (test code = MOC) PLATELET ESTIMATE (test code = PLTEST) PLATELET MORPHOLOGY (test code = PLTMORPH) CBC W/O [id number] 13:01:00* Test Item Value Reference Range Interpretation [...] K/mm3 150-450 LL Results called to by [facility].WILKINS 04/09/19 1255Critical results verified and read back by Nurse? Results called to [id number] by Bizo.LAB.WILKINS 04/09/19 1258Critical results verified and read back by Nurse? Y MEAN PLATELET VOLUME (test code = MPV) 12.8 fL 6.7-11.0 H DIFFERENTIAL [id number] 13:01:00* Test Item Value Reference Range Interpretation Comments STAIN ACCEPTABILITY (test code = STN ACCEPTABLE) MORPHOLOGY COMMENT (test code = MOC) PLATELET ESTIMATE (test code = PLTEST) PLATELET MORPHOLOGY (test code = PLTMORPH) CBC W/O [id number] 13:00:00* Test Item Value Reference Range Interpretation [...] read back by Nurse? Results called to [id number] by V.LAB.WILKINS 04/09/19 1258Critical results verified and read back by Nurse? Y MEAN PLATELET VOLUME (test code = MPV) 12.8 fL 6.7-11.0 H DIFFERENTIAL [id number] 13:00:00* Test Item Value Reference Range Interpretation Comments STAIN ACCEPTABILITY (test code = STN ACCEPTABLE) CABOT RINGS (test code = CAB) MORPHOLOGY COMMENT (test code = MOC) PLATELET ESTIMATE (test code = PLTEST) PLATELET MORPHOLOGY (test code = PLTMORPH) CBC W/O [id number] 12:58:00* Test Item Value Reference Range Interpretation [...] read back by Nurse? Results called to [id number] by V.LAB.WILKINS 04/09/19 1258Critical results verified and read back by Nurse? Y MEAN PLATELET VOLUME (test code = MPV) 12.8 fL 6.7-11.0 H [id number] 11:33:00* Test Item Value Reference Range Interpretation Comments GLUBED (test code = GLUBED) 108 mg/dL 74-106 H Performed by certified hardening machine operator helper at [facility] [id number] 07:35:00* Test Item Value Reference Range Interpretation Comments GLUBED (test code = GLUBED) 115 mg/dL 74-106 H Performed by certified hardening machine operator helper at [facility] CBC W/AUTO [id number] 06:49:00* Test Item Value Reference Range Interpretation [...] = MDIFF) NO, ONLY SCAN NEEDED DIFFERENTIAL [id number] 06:49:00* Test Item Value Reference Range Interpretation Comments STAIN ACCEPTABILITY (test code = STN ACCEPTABLE) STAIN ACCEPTABLE MORPHOLOGY COMMENT (test code = MOC) NORMAL PLATELET ESTIMATE (test code = PLTEST) DECREASED PLATELET MORPHOLOGY (test code = PLTMORPH) NORMAL COMPREHENSIVE METABOLIC [id number] 05:36:00* Test Item Value Reference Range Interpretation [...] due to change in reagent. COMPREHENSIVE METABOLIC [id number] 05:16:00* Test Item Value Reference Range Interpretation [...] code = ALKP) IUnit/L 45-117 CBC W/AUTO [id number] 05:10:00* Test Item Value Reference Range Interpretation [...] = MDIFF) NO, ONLY SCAN NEEDED DIFFERENTIAL [id number] 05:10:00* Test Item Value Reference Range Interpretation Comments STAIN ACCEPTABILITY (test code = STN ACCEPTABLE) CABOT RINGS (test code = CAB) MORPHOLOGY COMMENT (test code = MOC) PLATELET ESTIMATE (test code = PLTEST) PLATELET MORPHOLOGY (test code = PLTMORPH) CBC W/AUTO [id number] 05:10:00* Test Item Value Reference Range Interpretation [...] = MDIFF) NO, ONLY SCAN NEEDED DIFFERENTIAL [id number] 05:10:00* Test Item Value Reference Range Interpretation Comments STAIN ACCEPTABILITY (test code = STN ACCEPTABLE) MORPHOLOGY COMMENT (test code = MOC) PLATELET ESTIMATE (test code = PLTEST) PLATELET MORPHOLOGY (test code = PLTMORPH) CBC W/AUTO [id number] 05:09:00* Test Item Value Reference Range Interpretation [...] = MDIFF) NO, ONLY SCAN NEEDED DIFFERENTIAL [id number] 05:09:00* Test Item Value Reference Range Interpretation Comments STAIN ACCEPTABILITY (test code = STN ACCEPTABLE) CABOT RINGS (test code = CAB) MORPHOLOGY COMMENT (test code = MOC) PLATELET ESTIMATE (test code = PLTEST) PLATELET MORPHOLOGY (test code = PLTMORPH) CBC W/AUTO [id number] 05:09:00* Test Item Value Reference Range Interpretation [...] = MDIFF) NO, ONLY SCAN NEEDED DIFFERENTIAL [id number] 05:09:00* Test Item Value Reference Range Interpretation Comments STAIN ACCEPTABILITY (test code = STN ACCEPTABLE) CABOT RINGS (test code = CAB) MORPHOLOGY COMMENT (test code = MOC) PLATELET ESTIMATE (test code = PLTEST) PLATELET MORPHOLOGY (test code = PLTMORPH) CBC W/AUTO [id number] 05:02:00* Test Item Value Reference Range Interpretation [...] # (test code = BA#) K/mm3 0.0-0.2 [id number] 21:10:00* Test Item Value Reference Range Interpretation Comments GLUBED (test code = GLUBED) 151 mg/dL 74-106 H Performed by certified hardening machine operator helper at [facility] - MRI BRAIN W/O [id number] 19:43:00 FAX: Artem Esposito MD [phone] [place]: [address] St: [facility] FAX: Bin George MD [phone] Name: WANDA VILLASENOR Ajith [place] Home : 1950 Age/S: 68/F [address] Unit #: [id number] Loc: [address] [place] [address] Phys: Artem Esposito MD Acct: [id number] Dis Date: Status: ADM IN PHONE #: [phone] Exam Date: 10/14/2018 1914 FAX #: [phone] Reason: dizziness EXAMS: CPT CODE: [id number] MRI BRAIN W/O CONTRAST 97593 REASON FOR EXAM: dizziness Exam Order Date: [...] Signed Report (CONTINUED) FAX: Artem Esposito MD [phone] [place]: [address] St: [facility] FAX: Bin George MD [phone] Name: VILLASENORWANDA V [place] Home : 1950 Age/S : 68/F [address] Unit #: [id number] Loc: [address] [place] [address] Phys: Artem Esposito MD Acct: [id number] Dis Date: Status: ADM IN PHONE #: [phone] Exam Date: 10/14/20181913 FAX #: [phone] Reason: dizziness EXAMS: CPT CODE: [id number] MRI BRAIN W/O CONTRAST 17547 <Continued> CC: Artem Esposito MD; Bin Stovall MD Technologist: WALE BARKLEYRT - MRI Trnscrd Date/Time/By: 10/14/2018 (1942) : By: MayelinVTL Orig Print D/T: S: 10/14/2018 (1945) PAGE 2 Signed Report [id number] 15:30:00* Test Item Value Reference Range Interpretation Comments GLUBED (test code = GLUBED) 161 mg/dL 74-106 H Performed by certified hardening machine operator helper at [facility] [id number] 11:42:00* Test Item Value Reference Range Interpretation Comments GLUBED (test code = GLUBED) 158 mg/dL 74-106 H Performed by certified hardening machine operator helper at [facility] [id number] 11:23:00* Test Item Value Reference Range Interpretation Comments GLYCOSYLATED HEMOGLOBIN (HA1C) (test code = GLYHGB) 6.5 % HbA1 4. 8-6.0 H ESTIMATED AVERAGE GLUCOSE (test code = EAG) 140 MG/DL CBC W/AUTO [id number] 10:46:00* Test Item Value Reference Range Interpretation [...] = MDIFF) NO, ONLY SCAN NEEDED DIFFERENTIAL [id number] 10:46:00* Test Item Value Reference Range Interpretation Comments STAIN ACCEPTABILITY (test code = STN ACCEPTABLE) CABOT RINGS (test code = CAB) MORPHOLOGY COMMENT (test code = MOC) PLATELET ESTIMATE (test code = PLTEST) PLATELET MORPHOLOGY (test code = PLTMORPH) CBC W/AUTO [id number] 10:46:00* Test Item Value Reference Range Interpretation [...] = MDIFF) NO, ONLY SCAN NEEDED DIFFERENTIAL [id number] 10:46:00* Test Item Value Reference Range Interpretation Comments STAIN ACCEPTABILITY (test code = STN ACCEPTABLE) CABOT RINGS (test code = CAB) MORPHOLOGY COMMENT (test code = MOC) PLATELET ESTIMATE (test code = PLTEST) PLATELET MORPHOLOGY (test code = PLTMORPH) CBC W/AUTO [id number] 10:46:00* Test Item Value Reference Range Interpretation [...] = MDIFF) NO, ONLY SCAN NEEDED DIFFERENTIAL [id number] 10:46:00* Test Item Value Reference Range Interpretation Comments STAIN ACCEPTABILITY (test code = STN ACCEPTABLE) MORPHOLOGY COMMENT (test code = MOC) PLATELET ESTIMATE (test code = PLTEST) PLATELET MORPHOLOGY (test code = PLTMORPH) CBC W/AUTO [id number] 10:46:00* Test Item Value Reference Range Interpretation [...] = MDIFF) NO, ONLY SCAN NEEDED DIFFERENTIAL [id number] 10:46:00* Test Item Value Reference Range Interpretation Comments STAIN ACCEPTABILITY (test code = STN ACCEPTABLE) CABOT RINGS (test code = CAB) MORPHOLOGY COMMENT (test code = MOC) PLATELET ESTIMATE (test code = PLTEST) PLATELET MORPHOLOGY (test code = PLTMORPH) CBC W/AUTO [id number] 10:42:00* Test Item Value Reference Range Interpretation [...] code = BA#) K/mm3 0.0-0.2 COMPREHENSIVE METABOLIC [id number] 10:24:00* Test Item Value Reference Range Interpretation [...] result is a direct measurement.========= COMPREHENSIVE METABOLIC [id number] 10:14:00* Test Item Value Reference Range Interpretation [...] code = ALKP) IUnit/L 45-117 CBC W/AUTO [id number] 10:00:00* Test Item Value Reference Range Interpretation [...] # (test code = BA#) K/mm3 0.0-0.2 [id number] 08:25:00* Test Item Value Reference Range Interpretation Comments GLUBED (test code = GLUBED) 126 mg/dL 74-106 H Performed by certified hardening machine operator helper at [facility] [id number] 08:19:00* Test Item Value Reference Range Interpretation Comments TROPONIN-I (test code = TROPI) <0.015 ng/mL 0-0.045 N COMMENTS TO JOB SERVICE SPECIALIST: COLLECT 3 HOURS AFTER PREVIOUS [id number] 02:24:00* Test Item Value Reference Range Interpretation Comments TROPONIN-I (test code = TROPI) <0.015 ng/mL 0-0.045 N COMMENTS TO JOB SERVICE SPECIALIST: COLLECT 3 HOURS AFTER PREVIOUS SAMPLEBASIC METABOLIC [id number] 20:16:00* Test Item Value Reference Range Interpretation [...] code = CA) 9.5 mg/dL 8.5-10.1 N [id number] 20:16:00* Test Item Value Reference Range Interpretation Comments TROPONIN-I (test code = TROPI) <0.015 ng/mL 0-0.045 N TROPONIN I [id number] 20:12:00* Test Item Value Reference Range Interpretation [...] only if similarmethodology is used. BASIC METABOLIC [id number] 20:07:00* Test Item Value Reference Range Interpretation [...] CALCIUM (test code = CA) mg/dL 8.5-10.1 [id number] 20:07:00* Test Item Value Reference Range Interpretation Comments TROPONIN-I (test code = TROPI) ng/mL 0-0.045 CBC W/O [id number] 20:01:00* Test Item Value Reference Range Interpretation [...] MPV) 11.8 fL 6.7-11.0 H CBC W/O [id number] 19:56:00* Test Item Value Reference Range Interpretation [...] MPV) fL 6.7-11.0 - XR CHEST 2 [id number] 19:22:00 FAX: Ike Dan [place]: B St: PRE Name: WANDA YARBROUGH V [place] Home : [birth year] Age/S: 68/F [address] [facility] Unit #: [id number] Loc: [place] [address] Phys: Ike Dan Acct: [id number] Dis Date: Status: PRE ER PHONE #: [phone] Exam Date: 10/13/2018 192 FAX #: [phone] Reason: CHEST PAIN EXAMS: CPT CODE: [id number] XR CHEST 2 V 81451 REASON FOR EXAM: CHEST SURENDRA N Exam [...]
== END 2019-09-05 14:27 | disposition home or self-care (01) ==
LOC: ER 10:04 → ERHOLD 10:20 → INTOOBSV 10:20 → MED/SURG3 11:53
PROVIDERS: ADMIT Internal Medicine; ATTEND Internal Medicine
DX: R07.89 Other chest pain (principal); I10 Essential (primary) hypertension; E11.9 Type 2 diabetes mellitus without complications; R94.39 Abnormal result of other cardiovascular function study; E78.5 Hyperlipidemia, unspecified; E66.9 Obesity, unspecified; Z68.41 Body mass index [BMI] 40.0-44.9, adult; D69.6 Thrombocytopenia, unspecified; Z01.812 Encounter for preprocedural laboratory examination; Z11.59 Encounter for screening for other viral diseases
CPT/HCPCS: 36415 ×3; 71045; 74018; 76700; 80053; 80061 ×2; 82550 ×2; 82553 ×2; 82948 ×3; 83036; 83880; 84484 ×2; 85025; 87635; 93005; 93306; 93455; 99284; C1769 ×2; C1887; C1894; G0378 ×3; J1644; J1817; J2001; J2250; J2270; J2405; J3010; J7030; Q9967; 93454; 99152; U0002